=== PATIENT | male | born 1980 | race Caucasian/White ===

== ENCOUNTER 2025-03-14 17:47 | Inpatient (IN) | payer OTHER, SELFPAY ==
[2025-03-14] VITALS (16 sets, daily range): BP systolic 102–188; BP diastolic 53–90; PULSE 67–117; RESP 10–20; TEMP 36.8; O2SAT 95–100; BMI 33.0
--- NOTE | ~2025-03-14 | XR_ITS ---
Portable chest x-ray Comparison: None Clinical History: Cough Findings: Lungs are clear, without focal consolidation or pleural effusion. Cardiomediastinal silho uette is unremarkable. Bones and soft tissues are unremarkable. Impression: Clear lungs. Reviewed, dictated and finalized at location M. Impression: Clear lungs.
--- NOTE | ~2025-03-14 | CT_ITS ---
EXAMINATION: CT thoracic lumbar wo con DATE: 03/18/2025 09:22 INDICATION: Fall TECHNIQUE: Computed tomography (CT) of the thoracic and lumbar spine was performed without intravenou s contrast. Automated exposure control and iterative reconstruction technique were employed. The dose -length product was 2153.12 mGy-cm. COMPARISON: None FINDINGS: Minimal upper thoracic levocurvature and mid to lower thoracic dextrocurvature. 10 degrees lumbar lev ocurvature. Sagittal alignment is normal throughout the thoracic and lumbar spine. Chronic appearing minimal likely physiologic anterior wedging at T12 and L1. Remaining thoracic and lumbar vertebral frieda dy heights are normal. No acute fracture. There is mild disc height loss at T4-T5 through T9-T10. No central canal stenosis in the thoracic spine. There is mild multilevel thoracic facet osteoarthritis. No significant thoracic neural foraminal stenosis. There are disc bulges resulting in mild central c anal stenosis at L2-L3 through L5-S1. There is also mild multilevel lumbar facet osteoarthritis which along with the disc bulges contributes to minimal to mild neural foraminal stenosis also at L2-L3 th rough L5-S1. Moderate bilateral sacroiliac osteoarthritis. 2.5 cm low-attenuation left adrenal adenom a. Paravertebral soft tissues are otherwise unremarkable. There prominent patchy consolidation and ce ntrilobular groundglass opacities in the bilateral lower lobes suspicious for aspiration and/or pneum onia. IMPRESSION: 1. Mild thoracic and lumbar spondylosis with minimal physiologic anterior wedging at T12 and L1 but n o acute osseous abnormality. 2. Prominent airspace opacity bilateral lower lobes consistent with aspiration and/or pneumonia. Reviewed, dictated and finalized at location A. IMPRESSION: 1. Mild thoracic and lumbar spondylosis with minimal physiologic anterior wedgi ng at T12 and L1 but no acute osseous abnormality. 2. Prominent airspace opacity bilateral lower lobes consistent with aspiration and/or pneumonia.
--- NOTE | ~2025-03-14 | XR_ITS ---
EXAMINATION: XR surgery orthopedic DATE: 03/16/2025 13:00 CDT INDICATION: ORIF LEFT ANKLE . TECHNIQUE: 5 fluoroscopic images of the left ankle were obtained during left ankle ORIF. Fluoroscopy exposure time was 14.6 seconds. Air Kerma 0.5844 mGy. DAP 0.1158 mGym2. COMPARISON: Multiple x-rays 03/14/2025 FINDINGS/IMPRESSION: Fluoroscopic documentation of left ankle ORIF. Please refer to the operative note for complete proced ural details. Reviewed, dictated and finalized at location K.
--- NOTE | ~2025-03-14 | XR_ITS ---
EXAM: XR ankle LT 2V DATE: 03/14/2025 21:57 HISTORY: post reduction . COMPARISON: Same date at 6:39 PM. FINDINGS/IMPRESSION: Status post reduction and cast application. Cast material obscures osseous osseous detail. Improved alignment of the tibiotalar dislocation, with residual lateral subluxation of the talus. Imp roved alignment of the trimalleolar fractures with 5 mm persistent lateral displacement of the medial malleolus and persistent 5 mm lateral and 6 mm posterior displacement of the lateral malleolus. Reviewed, dictated and finalized at location K.
--- NOTE | ~2025-03-14 | XR_ITS ---
EXAM: XR ankle LT min 3V, XR tibia fibula LT 2V DATE: 03/14/2025 18:46 HISTORY: traumatic injury with deformity . COMPARISON: None available. FINDINGS: Normal mineralization. Oblique distal left fibular fracture at the level of the joint line , with one half shaft width lateral displacement and slight overlap. Transverse fracture of the media l malleolus, with 12 mm lateral displacement. The talus is laterally displaced relative to the tibial plafond. Small posterior malleolar fracture. No lytic or blastic lesion. Joint spaces are maintained . No erosion or periosteal change. Soft tissues within normal limits. IMPRESSION: Trimalleolar fracture/dislocation of the left ankle. Reviewed, dictated and finalized at location K. IMPRESSION: Trimalleolar fracture/dislocation of the left ankle.
--- NOTE | ~2025-03-14 | CT_ITS ---
EXAMINATION: CT cervical spine wo con DATE: 03/18/2025 09:21 INDICATION: Fall TECHNIQUE: Computed tomography (CT) of the cervical spine was performed without intravenous contrast. Automated exposure control and iterative reconstruction technique were employed. The dose-length pro duct was 558.50 mGy-cm. COMPARISON: None FINDINGS: Straightening of the normal cervical lordosis. 7 degrees cervical dextrocurvature which could be posi tional. No spondylolisthesis or facet subluxation. Vertebral body heights are normal. No fracture. Di sc heights are normal. No central canal stenosis. Mild multilevel bilateral cervical facet and uncove rtebral osteoarthritis without neural foraminal stenosis. Cervical soft tissues are unremarkable. Vis ualized apices of lungs are clear. IMPRESSION: 1. 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 No acute osseous abnormality. Reviewed, dictated and finalized at location A. IMPRESSION: 1. 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 No acute os seous abnormality.
--- NOTE | 2025-03-14 19:26 | PC.NURSE ---
Report received from ANN Reyes. Assumed care of patient at this time.
--- OUTSIDE RECORDS SUMMARY | 2025-03-14 20:31 | XMS_ITS | Clinical Summary ---
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 Name Role Phone Unavailable Primary Care Provider Unavailabl e Social History Tobacco Use Types Packs/Day Years Used Date Smoking Tobacco: Never Assessed Sex and Gender Information Value Date Recorded Sex Assigned at Not on file Legal Sex Male 8:10 PM CDT Gender Identity Not on file Sexual Orientation Not on file Last Filed Vital Signs Vital Sign Reading Time Taken Comments Blood Pressure 118/70 06/16/2016 11:47 AM CDT Pulse 88 06/16/2016 11:47 AM CDT Temperature - - Respiratory Rate - - Oxygen Saturation - - Inhaled Oxygen Concentration - - Weight 92.8 kg (204 lb 8 oz) 06/16/2016 11:47 AM CDT Height 176.5 cm (5' 9.5) 06/16/2016 11:47 AM CD T Body Mass Index 29.77 06/16/2016 11:47 AM CDT Plan of Treatment Health Maintenance Due Date Last Done Comments Annual Physical 1983 Hepatitis C 1998 DTaP, Tdap and Td Vaccines ( 1 - Tdap) 1999 Hepatitis B Vaccines (1 of 3 - 19+ 3-dose series) 1999 COVID-19 Vaccine (2023-2 5 season) 2024 HPV Vaccines Aged Out No longer eligi ble based on patient's age to complete this topic Meningococcal B Vaccine Aged Out No l onger eligible based on patient's age to complete this topic Meningococcal Vaccine Aged Out No isak lambert eligible based on patient's age to complete this topic Pneumococcal Vaccine: Pediat rics (0 to 5 Years) and At-Risk Patients (6 to 49 Years) Aged Out No longer eligible b ased on patient's age to complete this topic RSV Immunizations Under 20 Months Aged Out No longer eligible based on patient's age to complete this topic
[2025-03-14 20:47] LABS: Hematocrit 41.0 % (42.0-52.0); Hemoglobin 14.9 g/dL (14.0-18.0); Immature Granulocyte Percent A 0.7 % (0-0.5); Lymphocytes Absolute Auto 1.61 K/mm3 (0.9-3.2); Mean Corpuscular HGB Conc 36.3 g/dl (32-36); Mean Corpuscular Hemoglobin 30.3 pg (26-34); Mean Corpuscular Volume 83.3 fl (80-100); Nucleated Red Blood Cells Absolute Auto 0.000 K/mm3 (0.0-0.012); Nucleated Red Blood Cells Perc 0.0 % (0.0-0.2); Platelet Count Result 354 k/mm3 (150-375); Red Blood Count 4.92 M/mm3 (4.6-6.20); White Blood Count 15.6 K/mm3 (4.5-10.0)
[2025-03-14 20:59] LABS: Alanine Aminotransferase 44 U/L (6-50); Albumin Level 4.8 g/dL (3.5-5.1); Alkaline Phosphatase 92 U/L (38-126); Anion Gap 12 mmol/L (4-12); Aspartate Amino Transferase 43 U/L (17-59); Bilirubin,Total 0.6 mg/dL (0.2-1.3); Blood Urea Nitrogen 6 mg/dL (9-20); Calcium 9.3 mg/dL (8.4-10.2); Carbon Dioxide 23 mmol/L (22-30); Chloride 89 mmol/L (98-107); Estimated CRCL calculation 183 ml/min; Estimated Glomerular Filt Rate > 60; Glucose 125 mg/dL (65-110); Potassium 4.2 mmol/L (3.4-5.0); Sodium 124 mmol/L (137-145); Total Protein 6.8 g/dL (6.3-8.2)
[2025-03-14 21:07] LABS: INR 0.9; Prothrombin Time 12.7 Seconds (11.1-14.7)
[2025-03-14 21:08] LABS: Partial Thromboplastin Time 26.0 Seconds (22.3-36.8)
[2025-03-14] MEDS: fentaNYL CITRATE INJ (*CRX) 100 MCG/2 ML VIAL IV PUSH (21:31)
[2025-03-14] MEDS: MIDAZOLAM HCL (*CRX) 2 MG/2 ML VIAL IV PUSH (21:33)
[2025-03-14] MEDS: fentaNYL CITRATE INJ (*CRX) 100 MCG/2 ML VIAL (21:45)
[2025-03-14 22:17] LABS: Anion Gap 12 mmol/L (4-12); Blood Urea Nitrogen 6 mg/dL (9-20); Calcium 9.3 mg/dL (8.4-10.2); Carbon Dioxide 23 mmol/L (22-30); Chloride 89 mmol/L (98-107); Estimated CRCL calculation 168 ml/min; Estimated Glomerular Filt Rate > 60; Glucose 143 mg/dL (65-110); Potassium 4.5 mmol/L (3.4-5.0); Sodium 124 mmol/L (137-145)
[2025-03-14] MEDS: SODIUM CHLORIDE 0.9% IV 1,000 ML 143 ML IV CONT (22:19)
--- NOTE | 2025-03-14 22:49 | ED_ITS ---
HPI - Extremity Injury (Lower) General Chief Complaint: Extremity Injury, Lower Stated Complaint: LLE injury Time Seen by Provider: 03/14/25 20:14 History of Present Illness HPI Narrative: 44-year-old male with no pertinent past medical history presenting to the emergency department with left ankle pain and deformity. Patient states he was drinking at a house green party throughout the day and slipped on a wet spot in the kitchen and fell backwards twisting his ankle. Did not hit his head or lose consciousness. He is clinically sober on arrival. Patient sources drinking beer throughout the day but states that he drinks regularly and not more than usual. Nontoxic in arrival but does have an obvious deformity to his left ankle with skin tenting and purple discoloration on the medial aspect. He is able to wiggle the toes and has good dorsalis pedis pulse, distal cap refill is good. No history of ankle fractures or orthopedic surgeries on that leg before. No other skin involvement or lacerations. No loss of consciousness, headache, vision changes, chest pain, shortness a breath, abdominal pain, back pain, fever, chills. Last oral intake during initial encounter was about 4 hours ago. Related Data Allergies Allergy/AdvReac Type Severity Reaction Status Date / Time amoxicillin Allergy Mild Unknown Verified 03/14/25 17:50 shellfish derived Allergy Mild Vomiting Verified 03/14/25 17:50 Review of Systems 2 Review of Systems: As reviewed above in HPI Exam 2 Narrative: GENERAL: [Well-appearing, well-nourished, and in no acute distress.] HEAD: [Normocephalic, atraumatic.] EYES: [PERRLA and EOMI.] ENT: Nares clear, no rhinorrhea or epistaxis. Mucous membranes moist. NECK: Supple. CHEST: [Clear to auscultation. No respiratory distress.] HEART: [Regular rate and rhythm]. No murmur heard. [Normal peripheral pulses.] ABDOMEN: [Soft, nondistended], [nontender], [No rigidity or guarding] EXTREMITIES: Left ankle deformity with skin tenting on the medial malleolus with posterior appearing displacement of the ankle. No skin breakdown, medial malleolar area with ecchymosis. Cap refill distally intact, able to wiggle the toes. Good dorsalis pedis pulse and posterior tibialis pulse. Able to plantar and dorsiflex at the ankle with good strength but does elicit pain. No other appreciable injuries to the other extremities. SKIN: Warm, dry, no rash. NEURO: [No focal deficits]. Alert and oriented [x3.] PSYCH: [Normal mood and affect.] Course Vital Signs Vital signs: Vital Signs Temperature 36.8 C 03/14/25 17:44 Pulse Rate 88 03/14/25 17:44 Respiratory Rate 14 03/14/25 17:44 Pulse Oximetry 99 03/14/25 17:44 Oxygen Delivery Room Air 03/14/25 17:44 Temperature 36.8 C 03/14/25 17:44 Pulse Rate 90 03/14/25 22:06 Respiratory Rate 15 03/14/25 22:06 Blood Pressure 102/53 L 03/14/25 22:06 Pulse Oximetry 98 03/14/25 22:06 Oxygen Delivery Room Air 03/14/25 17:44 Procedures Orthopedic Fracture Reduction Fracture #1: Fracture Reduction date: 03/14/25 Fracture Reduction time: 21:30 Time Out Performed: Yes Side: left Fracture Reduction Location: tibia and fibula Analgesia: other (Intravenous fentanyl and Versed for anxiolysis and pain control) Pre-Procedure Neuro Vascular Exam: normal Technique: direct manipulation and traction/counter-traction Post Reduction X-rays Demonstrate: acceptable reduction Post-reduction neuro exam: intact Post-reduction vascular exam: intact Splint Applied: Yes Patient Tolerated Procedure: well and no complications Orthopedic Splinting/Casting Injury #1: Splinting/Casting Date: 03/14/25 Splinting/Casting Time: 21:45 Side: left Lower Extremity Injury Location: ankle Lower Extremity Immobilizer: posterior splint and stirrup splint Splint: customized in ED Pre-Procedure Neuro Vascular Exam: normal Post-Procedure Neuro Vascular Exam: normal Other Orthopedic Equipment: crutches MDM - Extremity Injury (Lower) MDM Narrative Medical decision making narrative: 44-year-old male with no pertinent past medical history presenting to the emergency department with left ankle pain and deformity. Patient states he was drinking at a house green party throughout the day and slipped on a wet spot in the kitchen and fell backwards twisting his ankle. Did not hit his head or lose consciousness. He is clinically sober on arrival. Patient sources drinking beer throughout the day but states that he drinks regularly and not more than usual. Nontoxic in arrival but does have an obvious deformity to his left ankle with skin tenting and purple discoloration on the medial aspect. He is able to wiggle the toes and has good dorsalis pedis pulse, distal cap refill is good. No history of ankle fractures or orthopedic surgeries on that leg before. No other skin involvement or lacerations. No loss of consciousness, headache, vision changes, chest pain, shortness a breath, abdominal pain, back pain, fever, chills. Last oral intake during initial encounter was about 4 hours ago. Left ankle deformity with skin tenting on the medial malleolus with posterior appearing displacement of the ankle. No skin breakdown, medial malleolar area with ecchymosis. Cap refill distally intact, able to wiggle the toes. Good dorsalis pedis pulse and posterior tibialis pulse. Able to plantar and dorsiflex at the ankle with good strength but does elicit pain. No other appreciable injuries to the other extremities. X-rays were obtained which revealed a displaced trimalleolar fracture consistent with physical exam findings. He is neurovascular intact with soft compartments. Hemodynamically stable. He was given fentanyl and Versed for pain control and anxiety lytes as wall bedside reduction attempted. Several times were given he did have successful partial reduction of the left ankle with reduction of the skin tenting region and better approximation the bones on repeat x-ray. He was splinted in a posterior short-leg and stirrup splint for ankle stability. Patient's pain is under control at this time. Discussed the case with the orthopedic surgeon on-call Dr. Lara and our plan for admission to the hospital for consultation and evaluation. Patient does have numerous electrolyte deficiencies including low sodium and chloride which could be from alcohol use today, dehydration, from chronic alcohol intake. He does have a small white count but no signs of infection. Patient pain is under control at this time and he was made NPO. Admission to the hospitalist service under Dr. Terrell at this time with orthopedics on consult. He was given pain control medications p.r.n. orders and discussed with the patient and family the plan and they were comfortable with admission at this time. Medical Records Attestation: I reviewed the patient's medical records. Lab Data Attestation: I reviewed the patient's lab results. 03/14/25 20:37 03/14/25 22:03 Labs: Lab Results 03/14/25 03/14/25 Range/Units 20:37 22:03 WBC 15.6 H (4.5-10.0) K/mm3 RBC 4.92 (4.6-6.20) M/mm3 Hgb 14.9 (14.0-18.0) g/dL Hct 41.0 L (42.0-52.0) % MCV 83.3 (80-100) fl MCH 30.3 (26-34) pg MCHC 36.3 H (32-36) g/dl RDW 11.5 (11.5-14.5) % Plt Count 354 (150-375) k/mm3 MPV 8.1 (7.4-10.4) fl Immature Gran % (Auto) 0.7 H (0-0.5) % Neut % (Auto) 81.0 H (45.5-73.1) % Lymph % (Auto) 10.3 L (18.3-44.2) % [place] % (Auto) 6.9 (2.6-8.5) % Eos % (Auto) 0.6 (0-4.4) % Baso % (Auto) 0.5 (0.2-1.2) % Lymph # (Auto) 1.61 (0.9-3.2) K/mm3 [place] # (Auto) 1.1 H (0.1-0.6) K/mm3 Eos # (Auto) 0.1 (0-0.3) K/mm3 Baso # (Auto) 0.1 (0.0-0.1) K/mm3 Abs Immat Gran (auto) 0.11 H (0.00-0.031) K/mm3 Absolute Neuts (auto) 12.6 H (1.3-6.7) K/mm3 Absolute Nucleated RBC 0.000 (0.0-0.012) K/mm3 Nucleated RBC % 0.0 (0.0-0.2) % PT 12.7 (11.1-14.7) Seconds INR 0.9 APTT 26.0 (22.3-36.8) Seconds Sodium 124 L 124 L (137-145) mmol/L Potassium 4.2 4.5 (3.4-5.0) mmol/L Chloride 89 L 89 L (98-107) mmol/L Carbon Dioxide 23 23 (22-30) mmol/L Anion Gap 12 12 (4-12) mmol/L BUN 6 L 6 L (9-20) mg/dL Creatinine 0.51 L 0.56 L (0.7-1.3) mg/dL Estim Creat Clear Calc 183 168 ml/min Estimated GFR > 60 > 60 (59 - ) Glucose 125 H 143 H (65-110) mg/dL Calcium 9.3 9.3 (8.4-10.2) mg/dL Total Bilirubin 0.6 (0.2-1.3) mg/dL AST 43 (17-59) U/L ALT 44 (6-50) U/L Alkaline Phosphatase 92 (38-126) U/L Total Protein 6.8 (6.3-8.2) g/dL Albumin 4.8 (3.5-5.1) g/dL Blood Type Pending Antibody Screen Pending Imaging Data Attestation: I personally reviewed and interpreted this imaging study as follows: My impression: Status post reduction and cast application. Cast material obscures osseous osseous detail. Improved alignment of the tibiotalar dislocation, with residual lateral subluxation of the talus. Improved alignment of the trimalleolar fractures with 5 mm persistent lateral displacement of the medial malleolus and persistent 5 mm lateral and 6 mm posterior displacement of the lateral malleolus. Impressions Ankle X-Ray 03/14/25 18:52 IMPRESSION: Trimalleolar fracture/dislocation of the left ankle. Tibia/Fibula X-Ray 03/14/25 18:52 IMPRESSION: Trimalleolar fracture/dislocation of the left ankle. Discharge Plan Discharge Clinical Impression: Trimalleolar fracture of left ankle, Reduced trimalleolar fracture, Hyponatremia Patient Disposition: Still a Patient Condition: Stable Patient Language: Azerbaijani Follow-up/Referrals: PHYSICIAN NOT ON STAFF,NONSTAFF [Primary Care Provider] - Time of Disposition: 22:59
--- NOTE | 2025-03-14 23:01 | PC.NURSE ---
VORB to give patient 1L NS bolus.
[2025-03-14] MEDS: SODIUM CHLORIDE 0.9% IV 1,000 ML 999 ML IV CONT (23:07)
[2025-03-14] MEDS: HYDROcodone/acetaminophen (*CRX) 5-325 MG TABLET 1 TAB PO (23:53)
[2025-03-15] VITALS (7 sets, daily range): BP systolic 147–156; BP diastolic 65–77; PULSE 81–93; RESP 16–18; TEMP 36.4–36.9; O2SAT 99–100
--- NOTE | 2025-03-15 00:05 | PC.NURSE ---
Blood bank called to state that the T&S not resulting properly and they would need 4 pink top tubes sent down if needed. Spoke with Dr Terrell who states we can send this with next BMP draw at 0200.
--- NOTE | 2025-03-15 00:07 | P.HP_ITS ---
H&P: HPI History of Present Illness Date/Time: 03/15/25 00:07 Chief Complaint: Broke his leg after running through the kitchen in slipping on a wet spot while intoxicated Narrative: 44-year-old male with medical history of alcoholism, tobacco use, obesity, GERD, type 1 diabetes mellitus, essential hypertension and GERD who presented to the ER from family member's house where he is visiting after slipping and falling resulting in left ankle fracture. The patient reports that he is from around the [facility] and is here visiting family. They were having a pool republican and he ran inside to use the restroom. He slipped on a wet spot on the floor and fell. He had immediate deformity of the left ankle and foot which he in part reduced himself. He reports that initially he did not feel much pain due to being in shock. After his ankle was reduced in the ER his pain was more severe. He reports some mild improvement in the pain after fentanyl but definite improvement in pain after Dilaudid. He does admit that he has drink about 12 beers today. He reports he usually drinks between 12-18 beers every day and has done so for at least 10 years. He has had prior episodes of alcohol withdrawal which usually involves irritability, anxiousness and shakes. He has never had alcohol withdrawal seizures. He reports that he has also had issues with withdrawal with nicotine causing irritability but he does not want a nicotine patch at this time He denies any other symptoms of illness. He is type 1 diabetic since he was 20 once old. His last A1c was 6.2 in October. He reports that his fasting glucose this morning was 145 any as a continuous glucose monitor in place. He did not receive his evening Lantus. He usually takes 54 units of Lantus twice daily. He reports that if he is fasting he does not tend to take his Lantus dose. It is nice any lightheadedness or syncopal symptoms. He has not had any dizziness. He does is think that he snores but denies any daytime fatigue or sleepiness. He has never been tested for sleep apnea. He denies any significant cardiac history. He denies any current nausea or vomiting. He denies any known history of hepatic steatosis or cirrhosis. Labs in the ER were significant for mild hyponatremia with sodium 124 serum bicarb of 19 glucose of 125 and 1+ protein and urine and 1+ ketones. His insulin to carb ratio is 1 unit of insulin for every 3 carbohydrate. He usually gives himself 1 unit of insulin for every 10 points of glucose above 180 Review of Systems 2 Review of Systems: 12 systems were reviewed with pertinent positives and negatives per HPI. Except as documented in the HPI, all other systems were reviewed and are negative. [facility] Past Medical History Medical History (Updated 03/15/25 @ 04:19 by Fidelia Terrell DO) Macroalbuminuric diabetic nephropathy On lisinopril Continuous tobacco abuse Diabetic retinopathy Type 1 diabetes mellitus Since [id number] Allergic rhinitis Hyperlipidemia Essential hypertension GERD (gastroesophageal reflux disease) Surgical History Surgical History (Updated 03/15/25 @ 04:00 by Fidelia Terrell DO) Status post open reduction with internal fixation of fracture Right thumb repair History of umbilical hernia repair X2 Family History Family History (Updated 03/15/25 @ 04:00 by Fidelia Terrell DO) Other Lung cancer Other Brain cancer Other Mouth cancer Mother Healthy adult Father Healthy adult Social History Social History (Updated 03/15/25 @ 04:02 by Fidelia Terrell DO) Social History: Patient is single and does not have any children. 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 He has smoked between 15-20 cigarettes a day since his early 20s. He drinks between 12-18 beers a day and has drink heavily for at least 10 years. He denies illicit substance use. Code status: Full code Surrogate decision maker: Tu (brother) Smoking packs per day: 0.75 Smoking cigarettes per day: 15.0 Years smoked: 20 Smoking pack-years: 15.00 Smoking status: Current every day smoker Tobacco type: cigarettes and e-cigarettes/vaping Alcohol intake: current Drinks per week: 105 Substance use: never Substance use type: does not use Do You Feel Safe in your Home?: Yes Lack of Transportation: No Lack of Food: Never True Current Housing: I Have Housing Concerned About Future Housing: No Difficulty Paying Gas/Electric Bills: No Difficulty Paying for Meds: No Currently Unemployed: No Education: Master's Degree or Higher Difficulty w/ Childcare or Family Care: No Spiritual care concerns: No Meds Home Medications and Allergies Home Medications ?Medication ?Instructions ?Recorded ?Confirmed ?Type aspirin 81 mg tablet,delayed 81 mg PO DAILY 03/14/25 03/14/25 History release (Adult Aspirin Regimen) fluticasone propionate 50 2 spray intranasal DAILY 03/14/25 03/14/25 History mcg/actuation nasal spray,suspension levocetirizine 5 mg tablet (24HR 5 mg PO DAILY 03/14/25 03/14/25 History Allergy Relief) lisinopril 20 mg tablet 20 mg PO DAILY 03/14/25 03/14/25 History omeprazole 20 mg capsule,delayed 20 mg PO DAILY 03/14/25 03/14/25 History release pioglitazone 15 mg tablet 15 mg PO DAILY 03/14/25 03/15/25 History simvastatin 80 mg tablet 80 mg PO DAILY 03/14/25 03/14/25 History famotidine 40 mg tablet 40 mg PO HS 03/15/25 03/15/25 History insulin glargine 100 unit/mL 54 unit subcut BID 03/15/25 03/15/25 History subcutaneous solution (Lantus U-100 Insulin) insulin lispro 100 unit/mL 1 sliding scale dose subcut 03/15/25 03/15/25 History subcutaneous cartridge [id number] Allergies Allergy/AdvReac Type Severity Reaction Status Date / Time amoxicillin Allergy Mild Unknown Verified 03/14/25 23:46 shellfish derived Allergy Mild Vomiting Verified 03/14/25 23:46 Vital Signs Vital Signs - 24 hr 03/14/25 17:44 03/14/25 17:45 03/14/25 18:57 Temperature 98.2 F Pulse Rate 88 87 84 Respiratory Rate 14 18 18 Blood Pressure 147/73 H 149/74 H Pulse Oximetry 99 99 99 Oxygen Delivery Room Air 03/14/25 20:42 03/14/25 21:01 03/14/25 21:31 Temperature Pulse Rate 96 90 82 Respiratory Rate 19 11 L 13 Blood Pressure 134/72 146/78 H Pulse Oximetry 96 97 100 Oxygen Delivery 03/14/25 21:32 03/14/25 21:45 03/14/25 21:48 Temperature Pulse Rate 87 117 H 106 H Respiratory Rate 12 12 20 Blood Pressure 188/90 H Pulse Oximetry 100 98 Oxygen Delivery 03/14/25 22:00 03/14/25 22:06 03/14/25 22:44 Temperature Pulse Rate 92 90 67 Respiratory Rate 10 L 15 20 Blood Pressure 102/53 L Pulse Oximetry 98 100 Oxygen Delivery 03/14/25 22:45 03/14/25 22:49 03/14/25 22:54 Temperature Pulse Rate 67 68 68 Respiratory Rate 14 19 14 Blood Pressure 103/70 108/61 Pulse Oximetry 99 100 99 Oxygen Delivery 03/14/25 23:23 Temperature Pulse Rate 76 Respiratory Rate 18 Blood Pressure Pulse Oximetry 95 Oxygen Delivery Exam 2 Narrative: Weight 103.1 kg BMI 33.6 Const: Other: Obese, no acute distress, appears stated age HENMT: Other: Mucous membranes are moist, no oral pharyngeal erythema, crowded posterior oropharynx Eyes: Other: Pupils are equal and reactive, no scleral icterus, no conjunctival pallor Neck: Other: Large neck circumference, no JVD, no thyromegaly Resp: Other: Clear to auscultation bilaterally, no increased work of breathing Cardio: Other: Regular rate, regular rhythm, 2+ bilateral radial pulses, 2+ right pedal pulse, unable to assess left pedal pulse due to cast, no murmurs GI: Other: Obese, soft, nontender, normoactive bowel sounds Skin: Other: Kunal facial complexion, no petechiae Neuro: Other: Alert oriented, speech is clear, no facial asymmetry, no localizing neurologic deficits noted during the course of conversation Extrem: Other: Left lower extremity is in a splint distal extremity is neurovascularly intact with 2-3 second cap refill Psych: Other: Appropriate mood and affect, pleasant and cooperative, judgment and insight intact H&P: Results Labs Labs: Laboratory Tests 03/14/25 20:37 03/14/25 22:03 03/14/25 03/14/25 03/14/25 20:37 22:03 23:47 WBC 15.6 H RBC 4.92 Hgb 14.9 Hct 41.0 L MCV 83.3 MCH 30.3 MCHC 36.3 H RDW 11.5 Plt Count 354 MPV 8.1 Immature Gran % (Auto) 0.7 H Neut % (Auto) 81.0 H Lymph % (Auto) 10.3 L [place] % (Auto) 6.9 Eos % (Auto) 0.6 Baso % (Auto) 0.5 Lymph # (Auto) 1.61 [place] # (Auto) 1.1 H Eos # (Auto) 0.1 Baso # (Auto) 0.1 Abs Immat Gran (auto) 0.11 H Absolute Neuts (auto) 12.6 H Absolute Nucleated RBC 0.000 Nucleated RBC % 0.0 PT 12.7 INR 0.9 APTT 26.0 Sodium 124 L 124 L Potassium 4.2 4.5 Chloride 89 L 89 L Carbon Dioxide 23 23 Anion Gap 12 12 BUN 6 L 6 L Creatinine 0.51 L 0.56 L Estim Creat Clear Calc 183 168 Estimated GFR > 60 > 60 Glucose 125 H 143 H POC Capillary Glucose 169 H Calcium 9.3 9.3 Total Bilirubin 0.6 AST 43 ALT 44 Alkaline Phosphatase 92 Total Protein 6.8 Albumin 4.8 Blood Type Pending Antibody Screen Pending Impressions Ankle X-Ray 03/14/25 18:52 IMPRESSION: Trimalleolar fracture/dislocation of the left ankle. Tibia/Fibula X-Ray 03/14/25 18:52 IMPRESSION: Trimalleolar fracture/dislocation of the left ankle. Assessment and Plan Assessment and plan (1) Trimalleolar fracture of left ankle: Qualifiers: Encounter type: initial encounter Fracture type: closed Qualified Code(s): S82.852A - Displaced trimalleolar fracture of left lower leg, initial encounter for closed fracture Code(s): S82.852A - Displaced trimalleolar fracture of left lower leg, initial encounter for closed fracture Status: Acute (2) Alcohol intoxication: Qualifiers: Complication of substance-induced condition: uncomplicated Qualified Code(s): F10.920 - Alcohol use, unspecified with intoxication, uncomplicated Code(s): F10.929 - Alcohol use, unspecified with intoxication, unspecified Status: Acute (3) Hyponatremia: Code(s): E87.1 - Hypo-osmolality and hyponatremia Status: Acute (4) Type 1 diabetes mellitus: Qualifiers: Diabetes mellitus complication status: with kidney complications D iabetes mellitus complication detail: with diabetic microalbuminuria Qualified Code(s): E10.29 - Type 1 diabetes mellitus with other diabetic kidney complication; R80.9 - Proteinuria, unspecified Code(s): E10.9 - Type 1 diabetes mellitus without complications Status: Acute (5) Continuous tobacco abuse: Code(s): Z72.0 - Tobacco use Status: Acute Plan Patient has had a trimalleolar fracture of the left ankle. Orthopedic surgery has been consulted. Patient is NPO in anticipation of possible surgical procedure. Will keep extremity elevated. Will provide ice pack. Patient is actively intoxicated and has history of heavy alcohol use/dependence for 10+ years. He has had history of prior episodes of alcohol withdrawal but no history of alcohol withdrawal seizures. Will place patient on thiamine, multivitamin and folic acid supplements. Will place orders for p.r.n. Ativan for symptoms of withdrawal. Patient does have some hyponatremia I would not be surprised if this is not somewhat chronic given the patient's history of chronic alcohol use. Although there may be some component of acute hyponatremia given acute fracture in pain. Repeat electrolyte panel [place] later demonstrate stable sodium. Will monitor. The patient does have type 1 diabetes mellitus that is historically well- controlled but has a understandable complications of diabetic micro albuminemia nephropathy diabetic retinopathy and given longevity of his diagnosis. Patient is only mildly hyperglycemic. Patient is NPO. He states he would usually fold his Lantus if he was NPO and prefers not take his Lantus this evening. Patient has been started on moderate dose sliding scale insulin with Accu-Cheks q.6 hours while NPO. Hypoglycemia protocol has also been ordered. Once patient is postop he could be resumed back his home insulin regimen he carb counting of 1 unit of insulin for every 3 carbohydrate and a correction factor of 1 unit of insulin for every 10 mg a of glucose above 180. Patient does not want a nicotine patch currently but would be interested in 1 if symptoms of withdrawal developed. Nicotine patch has been ordered p.r.n.. He is not interested in tobacco cessation Education at this time. Patient has been admitted as observation status. MEDICAL DECISION MAKING NARRATIVE -Spoke with the ED provider in detail regarding patient's evaluation, workup and management -Patient seen and examined at bedside -Collaborated with patient's nurse at the bedside in detail and addressed all concerns -Labs, electrolytes, radiology, investigations and test results reviewed -ED/Consult/Nursing/Ancilliary notes on the chart reviewed and appreciated -Spoke with patient at bedside and all questions answered. Quality VTE Prophylaxis VTE prophylaxis: pharmacologic ordered (Lovenox 40 mg subQ daily.) Hospitalist [facility] Advance Care Plan I have confirmed that the patient's Advanced Care Plan is present, code status is documented, or surrogate decision maker is listed in patient medical record.: Yes Medication Reconciliation I have utilized all available resources to obtain, update and review the patients current medications (includes all prescriptions, OTC, herbals, cannabis, and nutritional supplements).: Yes
--- NOTE | 2025-03-15 00:30 | PC.NURSE ---
Spoke with December on M/S regarding blood bank needing 4 pink tops with next lab draw to send out for T&S.
[2025-03-15] MEDS: HYDROmorphone HCL INJ (*CRX) 2 MG/ML VIAL 0.5 MG IV PUSH ×2 (01:15→06:28)
[2025-03-15 01:22] LABS: Add Urine Microscopic? YES; Appearance Urine Clear (Clear); Glucose Urine UA Trace mg/dL (Negative); Leukocyte Esterase Ur Negative LEU/UL (Negative); Nitrate Urine Negative (Negative); Non Pathogenic Casts 0-2; Specific Grav Ur 1.004 (1.001-1.035)
[2025-03-15 02:54] LABS: Anion Gap 13 mmol/L (4-12); Blood Urea Nitrogen 10 mg/dL (9-20); Calcium 8.8 mg/dL (8.4-10.2); Carbon Dioxide 19 mmol/L (22-30); Chloride 93 mmol/L (98-107); Estimated CRCL calculation 136 ml/min; Estimated Glomerular Filt Rate > 60; Glucose 183 mg/dL (65-110); Potassium 4.7 mmol/L (3.4-5.0); Sodium 125 mmol/L (137-145)
[2025-03-15 03:17] LABS: Thyroid Stimulating Hormone Reflex 2.680 uIU/mL (0.465-4.68)
[2025-03-15] MEDS: HYDROcodone/acetaminophen (*CRX) 5-325 MG TABLET 1 TAB PO ×4 (04:55→19:54)
[2025-03-15 05:58] LABS: Hematocrit 40.9 % (42.0-52.0); Hemoglobin 13.9 g/dL (14.0-18.0); Mean Corpuscular HGB Conc 34.0 g/dl (32-36); Mean Corpuscular Hemoglobin 29.9 pg (26-34); Mean Corpuscular Volume 88.0 fl (80-100); Platelet Count Result 338 k/mm3 (150-375); Red Blood Count 4.65 M/mm3 (4.6-6.20); White Blood Count 16.7 K/mm3 (4.5-10.0)
[2025-03-15 06:11] LABS: Anion Gap 11 mmol/L (4-12); Blood Urea Nitrogen 10 mg/dL (9-20); Calcium 8.8 mg/dL (8.4-10.2); Carbon Dioxide 23 mmol/L (22-30); Chloride 92 mmol/L (98-107); Estimated CRCL calculation 133 ml/min; Estimated Glomerular Filt Rate > 60; Glucose 215 mg/dL (65-110); Magnesium 2.1 mg/dL (1.6-2.3); Potassium 5.1 mmol/L (3.4-5.0); Sodium 126 mmol/L (137-145)
[2025-03-15] MEDS: INSULIN ASPART (*BKC) 100 UNITS/ML SUB-Q ×4 (06:29→21:29)
[2025-03-15] MEDS: MULTIVITAMINS THERAPEUTIC TAB (*BKC) 1 TABLET PO (09:25)
[2025-03-15] MEDS: FOLIC ACID 1 MG TABLET PO (09:26)
[2025-03-15] MEDS: LORATADINE 10 MG TABLET PO (09:26)
[2025-03-15] MEDS: PANTOPRAZOLE 40 MG TABLET PO (09:26)
[2025-03-15] MEDS: THIAMINE HCL 100 MG TABLET PO (09:26)
[2025-03-15] MEDS: SODIUM CHLORIDE 0.9% IV 1,000 ML 100 ML IV CONT ×2 (09:28→17:36)
[2025-03-15] MEDS: FLUTICASONE PROPIONATE 0.05% NA SPR 16 GM BTL (*BKC) 2 SPRAY NASAL (09:34)
[2025-03-15] MEDS: LORazepam INJ (*CRX) 2 MG/ML VIAL IV PUSH (09:37)
[2025-03-15] MEDS: INSULIN GLARGINE (*BKC) 100 UNITS/ML 40 UNITS SUB-Q ×2 (12:43→21:29)
[2025-03-15] MEDS: chlordiazePOXIDE (*CRX) 25 MG CAPSULE 50 MG PO ×3 (12:44→23:53)
--- NOTE | 2025-03-15 13:34 | PM.EVENT ---
Event Note Event Note Event Note: Patient is a 44-year-old male who was seen and assessed by previous provider same day follow-up evaluation and assessment is is hyponatremia slowly improved to 126 however received 2 L fluids in the emergency department benign initiated overnight so started patient on normal saline at 125ML/HR. patient reports he has everyday drinker ports easily stop drinking for 19 days 1 time but did not have any seizure-like activities but did report he some confusion some nausea and vomiting. patient had been at home reports [employer] for the 13 of March and drinking many and insight to his kitchen with the floor was slippery and wet from being in the pool and fell fracturing his left ankle which he attempted to reduce himself prior to arrival to the emergency department. Patient was reporting severe pain ER reduced and casted and consulted Orthopedics. Patient was admitted for electrolyte replacement and plans for surgery Sunday. Upon assessment patient mild diaphoresis no tremors noted but did report feeling anxious denied any chest pain, shortness a breath, nausea vomiting. I continued with aggressive IV hydration, thiamine, folic acid, multivitamin had been started. I also initiated patient on Librium 50 mg q.6 hours adding CIWA indications with p.r.n. Ativan. patient is a type 1 diabetic resumed his diabetic diet and insulin will need to monitor closely spoke with Ortho will place patient NPO at midnight with plans for surgery tomorrow 03/15/2025.
[2025-03-15] MEDS: diazePAM INJ (*CRX) 10 MG/2 ML SYRINGE 5 MG IV PUSH ×2 (14:04→21:36)
[2025-03-15 14:31] LABS: Anion Gap 13 mmol/L (4-12); Blood Urea Nitrogen 9 mg/dL (9-20); Calcium 9.1 mg/dL (8.4-10.2); Carbon Dioxide 21 mmol/L (22-30); Chloride 93 mmol/L (98-107); Estimated CRCL calculation 146 ml/min; Estimated Glomerular Filt Rate > 60; Glucose 224 mg/dL (65-110); Potassium 4.6 mmol/L (3.4-5.0); Sodium 127 mmol/L (137-145)
--- NOTE | 2025-03-15 15:34 | P.CONOP_ITS ---
Assessment and Plan Assessment and plan (1) Trimalleolar fracture of left ankle: Qualifiers: Encounter type: initial encounter Fracture type: closed Qualified Code(s): S82.852A - Displaced trimalleolar fracture of left lower leg, initial encounter for closed fracture Code(s): S82.852A - Displaced trimalleolar fracture of left lower leg, initial encounter for closed fracture Status: Acute Assessment and Plan: New patient evaluation for chief complaint Left ankle fracture status post fall. History, physical exam and radiographs reviewed with the patient. Discussed the condition, nature, etiology and course of natural history with the patient. Treatment options including surgical and nonoperative treatment were reviewed. Risks and benefits of each as well as alternatives reviewed. The patient's questions were answered. Conservative treatment ice, compression and elevation. Pain control, mechanical DVT prophylaxis for the right leg. Patient desires operative treatment. Discussed need for medical stabilization prior to proceeding with surgery. (2) Type 1 diabetes mellitus: Qualifiers: Diabetes mellitus complication status: with kidney complications D iabetes mellitus complication detail: with diabetic microalbuminuria Qualified Code(s): E10.29 - Type 1 diabetes mellitus with other diabetic kidney complication; R80.9 - Proteinuria, unspecified Code(s): E10.9 - Type 1 diabetes mellitus without complications Status: Acute Plan Discussed nonoperative and operative treatment options with the patient. Risks and benefits of each as well as alternatives were reviewed. All of the patient's questions were answered. The risks of surgery reviewed including but not limited to: Neurovascular damage, wound complication, infection, blood clot, pulmonary embolus, stroke, myocardial infarction, and anesthetic risks up to and including . Continued pain and possible dysfunction were explained. Specific risks of the procedure including later recurrence of deformity. No guarantees were offered. If hardware used, discussed risk of failure/ breakage and possible need for removal. If complications occur, the patient understands the need for further treatment, possible further surgery. Patient verbalizes understanding and wishes to proceed. PLAN: Open reduction internal fixation left ankle fracture. History of Present Illness HPI Consult date: 03/15/25 Requesting physician: Emory Espinoza MD Chief complaint: Trimalleolar fracture, Hyponatremia Narrative: 44-year-old with type 1 diabetes slipped on wet floor in kitchen yesterday sustaining left ankle fracture dislocation. Reduced in the emergency room and splinted. Admitted for further care. He had electrolyte abnormalities which they have been working on. No prior problems with the left ankle. Independent ambulator. No prior fractures. No head injury, neck or back injury at the time of fall. Denies history of blood clots or anesthetic problems. Review of Systems 2 Constitutional: Constitutional: Denies fever(s) Eyes: Eyes: Denies blurry vision ENT: Reports Normal hearing present Cardiovascular: Cardiovascular: Denies chest pain and Denies dyspnea Respiratory: Respiratory: Denies dyspnea and Denies wheezing Gastrointestinal: Gastrointestinal: Denies abdominal pain Genitourinary: Genitourinary: Denies urinary urgency Musculoskeletal: Musculoskeletal: Reports as per HPI and Denies numbness Integumentary/Breasts: Skin/Breast: Denies changing lesions and Denies sores Neurologic: Reports Normal hearing present, Denies behavioral changes, Denies confusion, Denies numbness and Denies convulsions Psychiatric: Psychiatric: Denies behavioral changes, Denies confusion and Denies hallucinations Endocrine: Endocrine: Denies heat intolerance Hematologic/Lymphatic: Hematologic/Lymphatic: Denies easy bleeding Allergic/Immunologic: Allergic/Immunologic: Denies wheezing PMFSH Past Medical History Medical History Macroalbuminuric diabetic nephropathy On lisinopril Continuous tobacco abuse Diabetic retinopathy Type 1 diabetes mellitus Since [id number] Allergic rhinitis Hyperlipidemia Essential hypertension GERD (gastroesophageal reflux disease) Surgical History Surgical History Status post open reduction with internal fixation of fracture Right thumb repair History of umbilical hernia repair X2 Family History Family History Other Lung cancer Other Brain cancer Other Mouth cancer Mother Healthy adult Father Healthy adult Social History Social History Social History: Patient is single and does not have any children. 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 He has smoked between 15-20 cigarettes a day since his early 20s. He drinks between 12-18 beers a day and has drink heavily for at least 10 years. He denies illicit substance use. Code status: Full code Surrogate decision maker: Tu (brother) Smoking packs per day: 0.75 Smoking cigarettes per day: 15.0 Years smoked: 20 Smoking pack-years: 15.00 Smoking status: Current every day smoker Tobacco type: cigarettes and e-cigarettes/vaping Alcohol intake: current Drinks per week: 105 Substance use: never Substance use type: does not use Do You Feel Safe in your Home?: Yes Lack of Transportation: No Lack of Food: Never True Current Housing: I Have Housing Concerned About Future Housing: No Difficulty Paying Gas/Electric Bills: No Difficulty Paying for Meds: No Currently Unemployed: No Education: Master's Degree or Higher Difficulty w/ Childcare or Family Care: No Spiritual care concerns: No Meds Home Medications and Allergies Home Medications ?Medication ?Instructions ?Recorded ?Confirmed ?Type aspirin 81 mg tablet,delayed 81 mg PO DAILY 03/14/25 03/14/25 History release (Adult Aspirin Regimen) fluticasone propionate 50 2 spray intranasal DAILY 03/14/25 03/14/25 History mcg/actuation nasal spray,suspension levocetirizine 5 mg tablet (24HR 5 mg PO DAILY 03/14/25 03/14/25 History Allergy Relief) lisinopril 20 mg tablet 20 mg PO DAILY 03/14/25 03/14/25 History omeprazole 20 mg capsule,delayed 20 mg PO DAILY 03/14/25 03/14/25 History release pioglitazone 15 mg tablet 15 mg PO DAILY 03/14/25 03/15/25 History simvastatin 80 mg tablet 80 mg PO DAILY 03/14/25 03/14/25 History famotidine 40 mg tablet 40 mg PO HS 03/15/25 03/15/25 History insulin glargine 100 unit/mL 54 unit subcut BID 03/15/25 03/15/25 History subcutaneous solution (Lantus U-100 Insulin) insulin lispro 100 unit/mL 1 sliding scale dose subcut 03/15/25 03/15/25 History subcutaneous cartridge [id number] Allergies Allergy/AdvReac Type Severity Reaction Status Date / Time amoxicillin Allergy Mild Unknown Verified 03/14/25 23:46 shellfish derived Allergy Mild Vomiting Verified 03/14/25 23:46 Vital Signs Vital Signs - 24 hr 03/14/25 17:44 03/14/25 17:45 03/14/25 18:57 Temperature 98.2 F Pulse Rate 88 87 84 Respiratory Rate 14 18 18 Blood Pressure 147/73 H 149/74 H Pulse Oximetry 99 99 99 Oxygen Delivery Room Air 03/14/25 20:42 03/14/25 21:01 03/14/25 21:31 Temperature Pulse Rate 96 90 82 Respiratory Rate 19 11 L 13 Blood Pressure 134/72 146/78 H Pulse Oximetry 96 97 100 Oxygen Delivery 03/14/25 21:32 03/14/25 21:45 03/14/25 21:48 Temperature Pulse Rate 87 117 H 106 H Respiratory Rate 12 12 20 Blood Pressure 188/90 H Pulse Oximetry 100 98 Oxygen Delivery 03/14/25 22:00 03/14/25 22:06 03/14/25 22:44 Temperature Pulse Rate 92 90 67 Respiratory Rate 10 L 15 20 Blood Pressure 102/53 L Pulse Oximetry 98 100 Oxygen Delivery 03/14/25 22:45 03/14/25 22:49 03/14/25 22:54 Temperature Pulse Rate 67 68 68 Respiratory Rate 14 19 14 Blood Pressure 103/70 108/61 Pulse Oximetry 99 100 99 Oxygen Delivery 03/14/25 23:23 03/15/25 00:00 03/15/25 02:35 Temperature 98.2 F Pulse Rate 76 87 87 Respiratory Rate 18 18 18 Blood Pressure 156/74 H Pulse Oximetry 95 99 99 Oxygen Delivery Room Air 03/15/25 03:52 03/15/25 04:00 03/15/25 06:00 Temperature 98 F Pulse Rate 81 Respiratory Rate 18 Blood Pressure 156/74 H 156/74 H 151/71 H Pulse Oximetry 99 Oxygen Delivery 03/15/25 08:00 Temperature Pulse Rate Respiratory Rate Blood Pressure Pulse Oximetry Oxygen Delivery Room Air Exam 2 Const: General: No confusion Orientation/consciousness: No confusion HENMT: Head: normal to inspection, normocephalic and atraumatic Neck: Neck: supple and nontender Chest: Chest palpation & inspection: normal inspection of the chest Resp: Effort & Inspection: normal respiratory effort and no audible wheezes Cardio: Rate: regular rate : General: Yes deferred Skin: General skin exam: no rashes or lesions noted Neuro: General: No confusion Extrem: General: capillary refill normal Right upper extremity: normal to inspection Left upper extremity: normal to inspection Right lower extremity: normal to inspection and hip/thigh Details: normal to inspection L eft lower extremity: hip/thigh Details: normal to inspection, knee Details: normal to inspection and knee ligament exam normal Details: anterior drawer test normal, valgus stress test normal, varus stress test normal and Jose C's test normal, ankle (no calf tenderness) Details: abnormal to inspection ( Obvious swelling at the ankle joint), tenderness ( lateral malleolus), swelling (moderate lateral ankle), abnormal ROM Details: pain with active ROM Details: with plantar flexion and with dorsiflexion and with range as follows ( limited secondary to injury), crepitus Details: at the lateral malleolus and other ( good capillary refill in toes, 2+ DP pulse) and foot Details: normal capillary refill, toes with normal ROM, vascular exam Details: dorsalis pedis pulse present and motor-sensory exam Psych: Affect: normal affect Results Labs 03/15/25 05:45 03/15/25 14:15 Labs: Abnormal lab results 03/14/25 03/14/25 03/14/25 Range/Units 20:37 22:03 23:47 WBC 15.6 H (4.5-10.0) K/mm3 Hgb (14.0-18.0) g/dL Hct 41.0 L (42.0-52.0) % MCHC 36.3 H (32-36) g/dl Immature Gran % (Auto) 0.7 H (0-0.5) % Neut % (Auto) 81.0 H (45.5-73.1) % Lymph % (Auto) 10.3 L (18.3-44.2) % [place] # (Auto) 1.1 H (0.1-0.6) K/mm3 Abs Immat Gran (auto) 0.11 H (0.00-0.031) K/mm3 Absolute Neuts (auto) 12.6 H (1.3-6.7) K/mm3 Sodium 124 L 124 L (137-145) mmol/L Potassium (3.4-5.0) mmol/L Chloride 89 L 89 L (98-107) mmol/L Carbon Dioxide (22-30) mmol/L Anion Gap (4-12) mmol/L BUN 6 L 6 L (9-20) mg/dL Creatinine 0.51 L 0.56 L (0.7-1.3) mg/dL Glucose 125 H 143 H (65-110) mg/dL POC Capillary Glucose 169 H (65-105) mg/dl Phosphorus (2.5-4.5) mg/dL Urine Protein (Negative) mg/dL Urine Glucose (UA) (Negative) mg/dL Urine Ketones (Negative) mg/dL 03/15/25 03/15/25 03/15/25 Range/Units 01:05 02:16 05:32 WBC (4.5-10.0) K/mm3 Hgb (14.0-18.0) g/dL Hct (42.0-52.0) % MCHC (32-36) g/dl Immature Gran % (Auto) (0-0.5) % Neut % (Auto) (45.5-73.1) % Lymph % (Auto) (18.3-44.2) % [place] # (Auto) (0.1-0.6) K/mm3 Abs Immat Gran (auto) (0.00-0.031) K/mm3 Absolute Neuts (auto) (1.3-6.7) K/mm3 Sodium 125 L (137-145) mmol/L Potassium (3.4-5.0) mmol/L Chloride 93 L (98-107) mmol/L Carbon Dioxide 19 L (22-30) mmol/L Anion Gap 13 H (4-12) mmol/L BUN (9-20) mg/dL Creatinine (0.7-1.3) mg/dL Glucose 183 H (65-110) mg/dL POC Capillary Glucose 220 H (65-105) mg/dl Phosphorus (2.5-4.5) mg/dL Urine Protein 1+ H (Negative) mg/dL Urine Glucose (UA) Trace H (Negative) mg/dL Urine Ketones 1+ H (Negative) mg/dL 03/15/25 03/15/25 03/15/25 Range/Units 05:45 12:43 14:15 WBC 16.7 H (4.5-10.0) K/mm3 Hgb 13.9 L (14.0-18.0) g/dL Hct 40.9 L (42.0-52.0) % MCHC (32-36) g/dl Immature Gran % (Auto) (0-0.5) % Neut % (Auto) (45.5-73.1) % Lymph % (Auto) (18.3-44.2) % [place] # (Auto) (0.1-0.6) K/mm3 Abs Immat Gran (auto) (0.00-0.031) K/mm3 Absolute Neuts (auto) (1.3-6.7) K/mm3 Sodium 126 L 127 L (137-145) mmol/L Potassium 5.1 H (3.4-5.0) mmol/L Chloride 92 L 93 L (98-107) mmol/L Carbon Dioxide 21 L (22-30) mmol/L Anion Gap 13 H (4-12) mmol/L BUN (9-20) mg/dL Creatinine 0.65 L (0.7-1.3) mg/dL Glucose 215 H 224 H (65-110) mg/dL POC Capillary Glucose 228 H (65-105) mg/dl Phosphorus 4.6 H (2.5-4.5) mg/dL Urine Protein (Negative) mg/dL Urine Glucose (UA) (Negative) mg/dL Urine Ketones (Negative) mg/dL H & H 03/14/25 03/15/25 Range/Units 20:37 05:45 Hgb 14.9 13.9 L (14.0-18.0) g/dL Hct 41.0 L 40.9 L (42.0-52.0) % Coagulation 03/14/25 Range/Units 20:37 INR 0.9 All other labs normal. Diagnostic results Ankle/Foot x-ray: image reviewed ( Left ankle trimalleolar fracture with improved alignment after reduction and splinting.)
[2025-03-15] MEDS: FAMOTIDINE 20 MG TABLET 40 MG PO (20:52)
[2025-03-15] MEDS: SIMVASTATIN 20 MG TABLET 80 MG PO (20:54)
[2025-03-16] VITALS (18 sets, daily range): BP systolic 102–153; BP diastolic 54–77; PULSE 81–117; RESP 14–24; TEMP 36.2–37.2; O2SAT 94–100
[2025-03-16] MEDS: HYDROcodone/acetaminophen (*CRX) 5-325 MG TABLET 1 TAB PO ×2 (02:56→22:45)
[2025-03-16] MEDS: SODIUM CHLORIDE 0.9% IV 1,000 ML 100 ML IV CONT (02:58)
[2025-03-16] MEDS: chlordiazePOXIDE (*CRX) 25 MG CAPSULE 50 MG PO ×2 (05:54→21:03)
[2025-03-16 06:19] LABS: Influenza A QL RT-PCR Negative (Negative); Influenza B QL RT-PCR Negative (Negative); RSV RNA, RT-PCR Negative (Negative); SARS-CoV-2 RNA PCR Negative (Negative)
[2025-03-16 08:30] LABS: Hematocrit 39.1 % (42.0-52.0); Hemoglobin 13.0 g/dL (14.0-18.0); Mean Corpuscular HGB Conc 33.2 g/dl (32-36); Mean Corpuscular Hemoglobin 30.0 pg (26-34); Mean Corpuscular Volume 90.3 fl (80-100); Platelet Count Result 317 k/mm3 (150-375); Red Blood Count 4.33 M/mm3 (4.6-6.20); White Blood Count 13.8 K/mm3 (4.5-10.0)
[2025-03-16 08:43] LABS: Alanine Aminotransferase 40 U/L (6-50); Albumin Level 4.3 g/dL (3.5-5.1); Alkaline Phosphatase 97 U/L (38-126); Anion Gap 11 mmol/L (4-12); Aspartate Amino Transferase 32 U/L (17-59); Bilirubin,Total 0.7 mg/dL (0.2-1.3); Blood Urea Nitrogen 6 mg/dL (9-20); Calcium 9.2 mg/dL (8.4-10.2); Carbon Dioxide 24 mmol/L (22-30); Chloride 95 mmol/L (98-107); Estimated CRCL calculation 157 ml/min; Estimated Glomerular Filt Rate > 60; Glucose 163 mg/dL (65-110); Potassium 4.2 mmol/L (3.4-5.0); Sodium 130 mmol/L (137-145); Total Protein 6.4 g/dL (6.3-8.2)
[2025-03-16] MEDS: FLUTICASONE PROPIONATE 0.05% NA SPR 16 GM BTL (*BKC) 2 SPRAY NASAL (09:40)
[2025-03-16 10:29] LABS: Magnesium 1.9 mg/dL (1.6-2.3)
[2025-03-16] MEDS: IPRATROPIUM 0.5 MG/ALBUTEROL SULFATE 2.5 MG AMPUL.NEB 3 ML INHALATION (11:06)
--- NOTE | 2025-03-16 11:25 | P.PNIM_ITS ---
Progress Note: A&P Assessment and Plan (1) Trimalleolar fracture of left ankle: Qualifiers: Encounter type: initial encounter Fracture type: closed Qualified Code(s): S82.852A - Displaced trimalleolar fracture of left lower leg, initial encounter for closed fracture Code(s): S82.852A - Displaced trimalleolar fracture of left lower leg, initial encounter for closed fracture Status: Acute Assessment and Plan: Patient has had a trimalleolar fracture of the left ankle. Orthopedic surgery has been consulted. Patient was NPO at midnight for anticipation of possible surgical procedure. * Will keep extremity elevated. * Will provide ice pack. * Surgery planned 03/16/2025 Non-weight bearing post-op * pain management * PT/OT evaluation (2) ETOH abuse: Code(s): F10.10 - Alcohol abuse, uncomplicated Status: Acute Assessment and Plan: patient has history alcohol abuse reported he was drinking earlier prior to ar rival and fall states he has only had mild withdrawal symptoms no seizure-like activities * IV fluids * Thiamine, folic acid, and multi-vitamin * PPI daily * librium * Ativan PRN for seizure activity * CIWA daily * Monitor and replenish electrolytes as needed * Seizure precautions if indicated (3) Hyponatremia: Code(s): E87.1 - Hypo-osmolality and hyponatremia Status: Acute Assessment and Plan: hyponatremia likely secondary to patient's dehydration and alcohol intoxication * continue with IV fluids improving sodium 130 * trend (4) Type 1 diabetes mellitus: Qualifiers: Diabetes mellitus complication detail: with diabetic microalbuminuria Diabetes mellitus complication status: with kidney complications Qualified Code(s): E10.29 - Type 1 diabetes mellitus with other diabetic kidney complication; R80.9 - Proteinuria, unspecified Code(s): E10.9 - Type 1 diabetes mellitus without complications Status: Acute Assessment and Plan: patient is a type 1 diabetic * ACCU check ACHS * resume patient's long insulin and sliding scale insulin * diabetic diet * hypoglycemic protocol (5) Continuous tobacco abuse: Code(s): Z72.0 - Tobacco use Status: Acute Assessment and Plan: * nicotine patch p.r.n. * remove at night * encouraged smoking cessation (6) Essential hypertension: Code(s): I10 - Essential (primary) hypertension Status: Acute Assessment and Plan: mildly elevated BP POA * resume lisinopril * added hydralazine IV push for systolics over 160 * monitor BP per unit protocol Plan Code status: Full code per patient DVT prophylaxis: Lovenox Stress ulcer prophylaxis: Protonix 40 daily PT/OT notes: PT/OT post op Disposition: patient admitted to the medical unit plan for surgical repair of left ankle fracture today 03/16/2025. patient is currently nonweightbearing may need rehab placement PT/OT evaluation pending. Time Spent With Patient Time with patient: 15 - 25 minutes Subjective Date/time seen: 03/16/25 11:25 Interval history: Patient is a 44-year-old male who was admitted for surgical repair of left ankle fracture patient with long history of EtOH abuse need to monitor for alcohol withdrawals, patient is also a type 1 diabetic monitor glucose closely. 03/16/2025 Patient seen post-op drowsy from anesthesia but comfortable denies any current left lower extremity pain denied any chest pain, shortness a breath reported wheezing and cough improved with nebulizer treatment. Review of Systems Review of Systems: 12 systems were reviewed with pertinent positives and negatives per HPI. Except as documented in the HPI, all other systems were reviewed and are negative. All systems reviewed & are unremarkable except as noted in HPI and below Exam Const: General: comfortable and no acute distress Other: Obese, no acute distress, appears stated age HENMT: Mouth: Yes moist mucous membranes Eyes: General: appearance normal, both eyes and all related structures Neck: Neck: supple and no JVD Resp: Effort & Inspection: normal respiratory effort Auscultation: wheezes scattered wheezes Cardio: Rate: regular rate Rhythm: regular rhythm GI: GI Palp: Yes Soft to palpation Auscultation: normal bowel sounds Other: Obese Skin: General skin exam: normal color and no rashes or lesions noted Wounds: no wounds Other: Kunal facial complexion, no petechiae Neuro: General: gait normal Speech: normal speech Motor exam (neuro): 5/5 motor strength present throughout Extrem: Other: Left lower extremity is in a splint distal extremity is neurovascularly intact with 2-3 second cap refill Psych: Other: Appropriate mood and affect, pleasant and cooperative, judgment and insight intact Objective Data Vital Signs Vital Signs: Vital Signs - 24 hr 03/15/25 14:00 03/15/25 22:00 03/16/25 00:00 Temperature 98.4 F 97.5 F L Pulse Rate 93 86 Respiratory Rate 16 18 Blood Pressure 147/65 H 151/77 H 151/77 H Pulse Oximetry 100 99 Oxygen Delivery 03/16/25 04:00 03/16/25 06:00 03/16/25 08:00 Temperature 98.5 F Pulse Rate 81 Respiratory Rate 18 Blood Pressure 151/77 H 145/66 H Pulse Oximetry 100 98 Oxygen Delivery Room Air Intake/Output Intake/Output: Intake & Output 03/13/25 03/14/25 03/15/25 03/16/25 23:59 23:59 23:59 23:59 Intake Total 3773.3 2036.7 Output Total 750 3000 Balance 3023.3 -963.3 Meds/Results Medications: Active Medications Generic Name Dose Route Start Last Admin Trade Name Freq PRN Reason Stop Dose Admin Acetaminophen 650 mg 03/14/25 22:25 Acetaminophen 325 Mg Tablet PO Q4H PRN Mild Pain (1-3) or Fever Hydrocodone Bitart/Acetaminophen 1 tab 03/14/25 22:25 03/16/25 02:56 Hydrocodone/Acetaminophen (*Crx) 5-325 Mg Tablet PO 1 tab Q4H PRN Administration Pain Rated 4-6 Albuterol/Ipratropium 3 ml 03/16/25 07:55 03/16/25 11:06 Ipratropium 0.5 Mg/Albuterol Sulfate 2.5 Mg Ampul.Neb 3 Ml INHALATION 3 ml Q6HRT PRN Administration sob Chlordiazepoxide HCl 50 mg 03/15/25 12:20 03/16/25 05:54 Chlordiazepoxide (*Crx) 25 Mg Capsule PO 50 mg Q6HR SUREKHA Administration Dextrose 12.5 gm 03/14/25 22:27 Dextrose 50% 25 Gm/50 Ml Syringe IV PUSH PRN PRN Hypoglycemia Protocol Diazepam 5 mg 03/15/25 13:47 03/15/25 21:36 Diazepam Inj (*Crx) 10 Mg/2 Ml Syringe IV PUSH 5 mg Q8HR PRN Administration Muscle Spasticity Enoxaparin Sodium 40 mg 03/16/25 09:00 03/16/25 09:37 Enoxaparin 40 Mg/0.4 Ml Syringe SUB-Q Not Given DAILY SUREKHA Famotidine 40 mg 03/15/25 21:00 03/15/25 20:52 Famotidine 20 Mg Tablet PO 40 mg HS SUREKHA Administration Fluticasone Propionate 2 spray 03/15/25 09:00 03/16/25 09:40 Fluticasone Propionate 0.05% Na Spr 16 Gm Btl (*Bkc) NASAL 2 spray DAILY SUREKHA Administration Folic Acid 1 mg 03/15/25 09:00 03/15/25 09:26 Folic Acid 1 Mg Tablet PO 1 mg DAILY SUREKHA Administration Glucagon 1 mg 03/14/25 22:27 Glucagon For Inj 1 Mg Vial IM PRN PRN Hypoglycemia Protocol Glucose 15 gm 03/14/25 22:27 Glucose Oral Gel 15 Gm Of Glucse In 37.5 Gm Tube PO PRN PRN Hypoglycemia Protocol Guaifenesin/Dextromethorphan 1 tab 03/16/25 09:00 03/16/25 09:38 Guaifenesin 600 Mg/Dextromethorphan 30 Mg Sr Tab 12 Hr PO Not Given Q12HR SRUEKHA Hydralazine HCl 20 mg 03/15/25 08:32 Hydralazine Hcl 20 Mg/Ml Vial IV PUSH Q6H PRN Hypertension Hydromorphone HCl 0.5 mg 03/14/25 22:25 03/15/25 06:28 Hydromorphone Hcl Inj (*Crx) 2 Mg/Ml Vial IV PUSH 0.5 mg Q4H PRN Administration Pain Rated 7-10 Dextrose 1,000 mls @ 100 mls/hr 03/14/25 22:27 Dextrose 5% 1,000 Ml IVPB PRN PRN Hypoglycemia Protocol Insulin Aspart 0 units 03/15/25 21:00 03/16/25 09:00 Insulin Aspart (*Bkc) 100 Units/Ml SUB-Q Not Given 0800,1200,1700,2100 [facility] Insulin Glargine 40 units 03/15/25 09:00 03/16/25 09:38 Insulin Glargine (*Bkc) 100 Units/Ml SUB-Q Not Given Q12HR SUREKHA Lisinopril 20 mg 03/15/25 09:00 03/15/25 09:26 Lisinopril 20 Mg Tablet PO 20 mg DAILY SUREKHA Administration Loratadine 10 mg 03/15/25 09:00 03/15/25 09:26 Loratadine 10 Mg Tablet PO 10 mg QAM SUREKHA Administration Lorazepam 2 mg 03/15/25 03:52 03/15/25 09:37 Lorazepam Inj (*Crx) 2 Mg/Ml Vial IV PUSH 2 mg Q4H PRN Administration CIWA 8-15 Miscellaneous Information 1 each 03/15/25 21:00 Pharmacist Communication Order XX 04/14/25 20:59 ACHS SUREKHA Multivitamins Therapeutic 1 tablet 03/15/25 09:00 03/15/25 09:25 Multivitamins Therapeutic Tab (*Bkc) PO 1 tablet QAM [facility] Administration Nicotine 1 patch 03/15/25 03:52 Nicotine (*Pbkc) 21 Mg Patch TRANSDERM DAILY PRN Nicotine withdrawal Ondansetron HCl 4 mg 03/14/25 22:25 Ondansetron Inj 4 Mg/2 Ml Vial IV PUSH Q4H PRN Nausea Pantoprazole Sodium 40 mg 03/15/25 09:00 03/15/25 09:26 Pantoprazole 40 Mg Tablet PO 40 mg QAM SUREKHA Administration Simvastatin 80 mg 03/15/25 21:00 03/15/25 20:54 Simvastatin 20 Mg Tablet PO 80 mg QHS SUREKHA Administration Thiamine HCl 100 mg 03/15/25 09:00 03/15/25 09:26 Thiamine Hcl 100 Mg Tablet PO 100 mg QAM SUREKHA Administration Radiology Results: ITS Impressions Tibia/Fibula X-Ray 03/14/25 18:52 IMPRESSION: Trimalleolar fracture/dislocation of the left ankle. Chest X-Ray 03/16/25 05:51 Impression: Clear lungs. Labs Labs: Laboratory Results - last 24 hr 03/14/25 03/15/25 03/15/25 20:37 12:43 14:15 WBC RBC Hgb Hct MCV MCH MCHC RDW Plt Count MPV Sodium 127 L Potassium 4.6 Chloride 93 L Carbon Dioxide 21 L Anion Gap 13 H BUN 9 Creatinine 0.65 L Estim Creat Clear Calc 146 Estimated GFR > 60 Glucose 224 H POC Capillary Glucose 228 H Calcium 9.1 Magnesium Total Bilirubin AST ALT Alkaline Phosphatase Total Protein Albumin Influenza A (RT-PCR) Influenza B (RT-PCR) RSV (RT-PCR) SARS-CoV-2 RNA (RT-PCR) Antibody Screen Negative 03/15/25 03/15/25 03/16/25 16:42 20:55 05:34 WBC RBC Hgb Hct MCV MCH MCHC RDW Plt Count MPV Sodium Potassium Chloride Carbon Dioxide Anion Gap BUN Creatinine Estim Creat Clear Calc Estimated GFR Glucose POC Capillary Glucose 275 H 212 H Calcium Magnesium Total Bilirubin AST ALT Alkaline Phosphatase Total Protein Albumin Influenza A (RT-PCR) Negative Influenza B (RT-PCR) Negative RSV (RT-PCR) Negative SARS-CoV-2 RNA (RT-PCR) Negative Antibody Screen 03/16/25 03/16/25 08:26 08:58 WBC 13.8 H RBC 4.33 L Hgb 13.0 L Hct 39.1 L MCV 90.3 MCH 30.0 MCHC 33.2 RDW 12.0 Plt Count 317 MPV 8.1 Sodium 130 L Potassium 4.2 Chloride 95 L Carbon Dioxide 24 Anion Gap 11 BUN 6 L Creatinine 0.60 L Estim Creat Clear Calc 157 Estimated GFR > 60 Glucose 163 H POC Capillary Glucose 167 H Calcium 9.2 Magnesium 1.9 Total Bilirubin 0.7 AST 32 ALT 40 Alkaline Phosphatase 97 Total Protein 6.4 Albumin 4.3 Influenza A (RT-PCR) Influenza B (RT-PCR) RSV (RT-PCR) SARS-CoV-2 RNA (RT-PCR) Antibody Screen Quality VTE Prophylaxis VTE prophylaxis: pharmacologic ordered (Lovenox 40 mg subQ daily.) -Patient's previous records reviewed on admission -ER notes reviewed in detail on admission -discussed all findings and current treatment plan with patient/Family/POA -Consultations reviewed for recommendations -Patient's disposition for safe discharge discussed with nurse case manager Dictation performed by [employer] direct speech recognition software, therefore pyrometer temperature regulator variants and typographical errors may occur. Hospitalist MIPS Advance Care Plan I have confirmed that the patient's Advanced Care Plan is present, code status is documented, or surrogate decision maker is listed in patient medical record.: Yes Medication Reconciliation I have utilized all available resources to obtain, update and review the patients current medications (includes all prescriptions, OTC, herbals, cannabis, and nutritional supplements).: Yes The patient is not eligible for med reconciliation; the patient is in a emergent medical situation where delaying treatment would jeopardize the patients health.: No
[2025-03-16] MEDS: ACETAMINOPHEN 500 MG TABLET 1000 MG PO (12:25)
--- NOTE | 2025-03-16 12:26 | WPDANESEPPF ---
Anes - Initial Pre Proc Eval Procedure: Operation Date: 03/16/25 13:00 Proposed Procedures p Open Reduction Internal Fixation Left Ankle Fracture - Shemar Lara MD Date/Time: 03/16/25 12:26 Surgeon: Fidelia Terrell DO Pre Op Diagnosis: Trimalleolar fracture, Hyponatremia Patient Data Age: 44 Gender: M Height: 1.75 m Weight: 101.6 kg Last Vital Signs Temp 98.5 F 03/16/25 06:00 Pulse 81 03/16/25 06:00 Resp 18 03/16/25 06:00 BP 145/66 H 03/16/25 06:00 Pulse Ox 98 03/16/25 08:00 O2 Del Method Room Air 03/16/25 08:00 Allergies Allergy/AdvReac Type Severity Reaction Status Date / Time amoxicillin Allergy Mild Unknown Verified 03/14/25 23:46 shellfish derived Allergy Mild Vomiting Verified 03/14/25 23:46 Home Medications ?Medication ?Instructions ?Recorded ?Confirmed ?Type aspirin 81 mg tablet,delayed 81 mg PO DAILY 03/14/25 03/14/25 History release (Adult Aspirin Regimen) fluticasone propionate 50 2 spray intranasal DAILY 03/14/25 03/14/25 History mcg/actuation nasal spray,suspension levocetirizine 5 mg tablet (24HR 5 mg PO DAILY 03/14/25 03/14/25 History Allergy Relief) lisinopril 20 mg tablet 20 mg PO DAILY 03/14/25 03/14/25 History omeprazole 20 mg capsule,delayed 20 mg PO DAILY 03/14/25 03/14/25 History release pioglitazone 15 mg tablet 15 mg PO DAILY 03/14/25 03/15/25 History simvastatin 80 mg tablet 80 mg PO DAILY 03/14/25 03/14/25 History famotidine 40 mg tablet 40 mg PO HS 03/15/25 03/15/25 History insulin glargine 100 unit/mL 54 unit subcut BID 03/15/25 03/15/25 History subcutaneous solution (Lantus U-100 Insulin) insulin lispro 100 unit/mL 1 sliding scale dose subcut 03/15/25 03/15/25 History subcutaneous cartridge USEASDIRECTD Laboratory Tests 03/14/25 03/15/25 03/15/25 20:37 12:43 14:15 WBC RBC Hgb Hct MCV MCH MCHC RDW Plt Count MPV Sodium 127 L mmol/L (137-145) Potassium 4.6 mmol/L (3.4-5.0) Chloride 93 L mmol/L (98-107) Carbon Dioxide 21 L mmol/L (22-30) Anion Gap 13 H mmol/L (4-12) BUN 9 mg/dL (9-20) Creatinine 0.65 L mg/dL (0.7-1.3) Estim Creat Clear Calc 146 ml/min Estimated GFR > 60 (59 - ) Glucose 224 H mg/dL (65-110) POC Capillary Glucose 228 H mg/dl (65-105) Calcium 9.1 mg/dL (8.4-10.2) Magnesium Total Bilirubin AST ALT Alkaline Phosphatase Total Protein Albumin Influenza A (RT-PCR) Influenza B (RT-PCR) RSV (RT-PCR) SARS-CoV-2 RNA (RT-PCR) Antibody Screen Negative 03/15/25 03/15/25 03/16/25 16:42 20:55 05:34 WBC RBC Hgb Hct MCV MCH MCHC RDW Plt Count MPV Sodium Potassium Chloride Carbon Dioxide Anion Gap BUN Creatinine Estim Creat Clear Calc Estimated GFR Glucose POC Capillary Glucose 275 H mg/dl 212 H mg/dl (65-105) (65-105) Calcium Magnesium Total Bilirubin AST ALT Alkaline Phosphatase Total Protein Albumin Influenza A (RT-PCR) Negative (Negative) Influenza B (RT-PCR) Negative (Negative) RSV (RT-PCR) Negative (Negative) SARS-CoV-2 RNA (RT-PCR) Negative (Negative) Antibody Screen 03/16/25 03/16/25 03/16/25 08:26 08:58 11:34 WBC 13.8 H K/mm3 (4.5-10.0) RBC 4.33 L M/mm3 (4.6-6.20) Hgb 13.0 L g/dL (14.0-18.0) Hct 39.1 L % (42.0-52.0) MCV 90.3 fl (80-100) MCH 30.0 pg (26-34) MCHC 33.2 g/dl (32-36) RDW 12.0 % (11.5-14.5) Plt Count 317 k/mm3 (150-375) MPV 8.1 fl (7.4-10.4) Sodium 130 L mmol/L (137-145) Potassium 4.2 mmol/L (3.4-5.0) Chloride 95 L mmol/L (98-107) Carbon Dioxide 24 mmol/L (22-30) Anion Gap 11 mmol/L (4-12) BUN 6 L mg/dL (9-20) Creatinine 0.60 L mg/dL (0.7-1.3) Estim Creat Clear Calc 157 ml/min Estimated GFR > 60 (59 - ) Glucose 163 H mg/dL (65-110) POC Capillary Glucose 167 H mg/dl 192 H mg/dl (65-105) (65-105) Calcium 9.2 mg/dL (8.4-10.2) Magnesium 1.9 mg/dL (1.6-2.3) Total Bilirubin 0.7 mg/dL (0.2-1.3) AST 32 U/L (17-59) ALT 40 U/L (6-50) Alkaline Phosphatase 97 U/L (38-126) Total Protein 6.4 g/dL (6.3-8.2) Albumin 4.3 g/dL (3.5-5.1) Influenza A (RT-PCR) Influenza B (RT-PCR) RSV (RT-PCR) SARS-CoV-2 RNA (RT-PCR) Antibody Screen 03/16/25 12:07 WBC RBC Hgb Hct MCV MCH MCHC RDW Plt Count MPV Sodium Potassium Chloride Carbon Dioxide Anion Gap BUN Creatinine Estim Creat Clear Calc Estimated GFR Glucose POC Capillary Glucose 186 H mg/dl (65-105) Calcium Magnesium Total Bilirubin AST ALT Alkaline Phosphatase Total Protein Albumin Influenza A (RT-PCR) Influenza B (RT-PCR) RSV (RT-PCR) SARS-CoV-2 RNA (RT-PCR) Antibody Screen Patient hx anesthesia problems: none Family hx anesthesia problems: none Results Review: All pre-operative results and documents have been reviewed as part of the pre-operative evaluation. [facility] Past Medical History Medical History Macroalbuminuric diabetic nephropathy On lisinopril Continuous tobacco abuse Diabetic retinopathy Type 1 diabetes mellitus Since [id number] Allergic rhinitis Hyperlipidemia Essential hypertension GERD (gastroesophageal reflux disease) Surgical History Surgical History Status post open reduction with internal fixation of fracture Right thumb repair History of umbilical hernia repair X2 Family History Family History Other Lung cancer Other Brain cancer Other Mouth cancer Mother Healthy adult Father Healthy adult Social History Social History Social History: Patient is single and does not have any children. 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 He has smoked between 15-20 cigarettes a day since his early 20s. He drinks between 12-18 beers a day and has drink heavily for at least 10 years. He denies illicit substance use. Code status: Full code Surrogate decision maker: Tu (brother) Smoking packs per day: 0.75 Smoking cigarettes per day: 15.0 Years smoked: 20 Smoking pack-years: 15.00 Smoking status: Current every day smoker Tobacco type: cigarettes and e-cigarettes/vaping Alcohol intake: current Drinks per week: 105 Substance use: never Substance use type: does not use Do You Feel Safe in your Home?: Yes Lack of Transportation: No Lack of Food: Never True Current Housing: I Have Housing Concerned About Future Housing: No Difficulty Paying Gas/Electric Bills: No Difficulty Paying for Meds: No Currently Unemployed: No Education: Master's Degree or Higher Difficulty w/ Childcare or Family Care: No Spiritual care concerns: No Anes - Eval Final PreProcedure Day of Procedure 03/16/25 12:26 Patient weight: obese Heart: regular rate and rhythm Lungs: normal air movement and decreased breath sounds Airway: Mallampati scale class IV and special considerations large neck Neurological: alert and oriented Last oral intake: >/= 8 hours ASA classification: IV Emergent: no Anesthetic plan: proceed Anesthesia type and monitoring: general ETT and standard monitoring Results Review: All pre-operative results and documents have been reviewed as part of the pre-operative evaluation. Complicated pt for ortho surgery after fall 2 days ago. Active smoker 1 ppd for 25 years, suspect BONY but pt has not had sleep study. DM 1 as an infant, not on insulin pump at this time w fair control (fsbs 186), ETOH use, pt admits 15-18 beers/day. Full discussion w pt and mother at bedside and all questions answered to the best of my ability. Informed Consent: The patient's anesthetic plan and its attendant risks and benefits were discussed with the patient/family/POA. Questions were solicited and answers provided to the satisfaction of the patient/family/POA.
--- NOTE | 2025-03-16 12:27 | WPDHPUPDATE1 ---
History and Physical Update Update Date/Time: 03/16/25 12:27 History and Physical has been reviewed, including an updated exam of the patient. There are NO changes in the patient's condition. Risks, benefits, and alternatives have been discussed and questions answered. Patient agrees to proceed with procedure.
[2025-03-16] MEDS: LACTATED RINGERS 1,000 ML 30 ML IV CONT ×2 (12:33→14:45)
[2025-03-16] MEDS: ceFAZolin 2 GM/D5W 50 ML 2 GM/50 ML BAG IVPB (12:52)
[2025-03-16] MEDS: BUPIVACAINE/EPINEPHRINE 0.5% 50 ML VIAL 30 ML INFILTRATE (13:28)
--- NOTE | 2025-03-16 15:14 | W.PM.PROC2 ---
Procedure Note - Detailed Date of Procedure 03/16/25 Pre-op Diagnosis Trimalleolar left ankle fracture Post-op Diagnosis Same Procedure Performed ORIF LT ankle trimal with fixation medial and lateral mal fxs Surgeon Shemar Lara MD Admission Nurse Coordinator 1st shampoo assistant Anesthesia General Indications 44-year-old who slipped and fell and sustained a left ankle trimalleolar fracture dislocation. This was reduced in the emergency room. He was medically stabilized and presents now for operative treatment. Description of Procedure After informed consent, the operative extremity was marked in the preoperative holding area. Patient received intravenous antibiotics. Patient was then taken to the operating room and underwent general anesthesia by the anesthesia team. Positioned supine on the operating room table with a soft bump under the ipsilateral hip. A time-out was performed confirming the patient, site of the surgery, operative plan. Lower extremity then prepped and draped in the usual sterile surgical fashion using ChloraPrep skin solution. Foot and ankle exsanguinated and a thigh tourniquet inflated to 250 mmHg. Longitudinal incision made over the lateral ankle distal fibula with a 15 blade knife. Hemostasis controlled with electrocautery. Full-thickness soft tissue flaps developed and the fascia was incised in line with the skin incision. A no-touch technique was employed for the skin to avoid any skin damage. Fracture identified and cleared with a dental pick, irrigation and rongeur. Fracture reduced and held with bone-holding clamp. Image intensification confirmed reduction of the fracture and the ankle mortise. Fixation achieved with a 3.5 millimeter fully-threaded cortical screw placed in lag technique across the fracture. Neutralization with a lateral plate with unicortical screws distal to fracture and bicortical screws proximal to the fracture. Good alignment and stability of the fracture noted. Image intensification used to confirm reduction of the fracture and placement of the hardware. Medial side then addressed. Longitudinal incision made with a 15 blade knife over the medial malleolus fracture. Hemostasis controlled with electrocautery. Fascia incised in line with skin incision. Periosteum cleared from the medial malleolus fracture. Medial side of the joint inspected and noted to have mild amount of trauma to the chondral surface. Thorough irrigation of the ankle joint and suctioned out. Fracture reduced and provisionally pinned. Fixation achieved with 4.0 mm partially threaded cancellous screw placed in cannulated screw fashion. Image intensification confirmed reduction of the fracture and placement of the hardware. Stress of the ankle performed with good stability of the ankle mortise in all directions. Posterior malleolus noted to be reduced and stable. Wounds thoroughly irrigated with antibiotic solution. Fascia repaired with 00 Vicryl interrupted suture. Subcutaneous tissue repaired with 000 Monocryl interrupted suture and Skin approximated with lorena. Sterile dressings applied followed by bulky dressing and splint. Patient awoken from anesthesia, extubated and taken to the recovery room in stable condition. All sponge, needle and instrument counts correct at the end of the case. Palpable dorsalis pedis pulse noted prior to dressing. Implants Arthrex distal fibula plate, 5 hole. 3.5 mm lag screw x1. 4.0 mm cannulated screw x1 Estimated Blood Loss 10 Tourniquet Time Total Tourniquet Time: 60 Urine Output 3,000 Drains No Packing No Pathology None sent Complications No immediate complications Condition Stable Disposition PACU [facility] Billing Surgery - Charge Forward: Surgery Billing ([id number])
[2025-03-16] MEDS: LORATADINE 10 MG TABLET PO (17:47)
[2025-03-16] MEDS: PANTOPRAZOLE 40 MG TABLET PO (17:47)
[2025-03-16] MEDS: THIAMINE HCL 100 MG TABLET PO (17:47)
[2025-03-16] MEDS: MULTIVITAMINS THERAPEUTIC TAB (*BKC) 1 TABLET PO (17:47)
[2025-03-16] MEDS: SENNA/DOCUSATE SODIUM TABLET 2 TAB PO (17:47)
[2025-03-16] MEDS: FOLIC ACID 1 MG TABLET PO (17:47)
[2025-03-16] MEDS: INSULIN ASPART (*BKC) 100 UNITS/ML SUB-Q (17:51)
[2025-03-16] MEDS: SIMVASTATIN 20 MG TABLET 80 MG PO (20:51)
[2025-03-16] MEDS: ceFAZolin 1 GM/NS 50 ML 1 GM/50 ML BAG IVPB (20:51)
[2025-03-16] MEDS: guaiFENesin 600 MG/DEXTROMETHORPHAN 30 MG SR TAB 12 HR 1 TAB PO (20:52)
[2025-03-16] MEDS: FAMOTIDINE 20 MG TABLET 40 MG PO (20:52)
[2025-03-16] MEDS: INSULIN GLARGINE (*BKC) 100 UNITS/ML 40 UNITS SUB-Q (21:08)
[2025-03-16] MEDS: LORazepam INJ (*CRX) 2 MG/ML VIAL IV PUSH (22:47)
[2025-03-17] VITALS (10 sets, daily range): BP systolic 129–168; BP diastolic 62–69; PULSE 92–110; RESP 18–20; TEMP 36.4–37.3; O2SAT 96–99
[2025-03-17] MEDS: diazePAM INJ (*CRX) 10 MG/2 ML SYRINGE 5 MG IV PUSH ×2 (02:24→21:07)
[2025-03-17] MEDS: ceFAZolin 1 GM/NS 50 ML 1 GM/50 ML BAG IVPB ×2 (04:23→13:05)
[2025-03-17] MEDS: LORazepam INJ (*CRX) 2 MG/ML VIAL IV PUSH (04:24)
[2025-03-17] MEDS: HYDROcodone/acetaminophen (*CRX) 5-325 MG TABLET 1 TAB PO ×2 (04:24→08:49)
[2025-03-17] MEDS: chlordiazePOXIDE (*CRX) 25 MG CAPSULE 50 MG PO ×3 (05:22→21:06)
[2025-03-17 06:06] LABS: Hematocrit 36.1 % (42.0-52.0); Hemoglobin 12.0 g/dL (14.0-18.0); Mean Corpuscular HGB Conc 33.2 g/dl (32-36); Mean Corpuscular Hemoglobin 30.0 pg (26-34); Mean Corpuscular Volume 90.3 fl (80-100); Platelet Count Result 315 k/mm3 (150-375); Red Blood Count 4.00 M/mm3 (4.6-6.20); White Blood Count 17.2 K/mm3 (4.5-10.0)
[2025-03-17 06:16] LABS: Alanine Aminotransferase 32 U/L (6-50); Albumin Level 4.3 g/dL (3.5-5.1); Alkaline Phosphatase 92 U/L (38-126); Anion Gap 17 mmol/L (4-12); Aspartate Amino Transferase 30 U/L (17-59); Bilirubin,Total 0.7 mg/dL (0.2-1.3); Blood Urea Nitrogen 5 mg/dL (9-20); Calcium 8.9 mg/dL (8.4-10.2); Carbon Dioxide 16 mmol/L (22-30); Chloride 94 mmol/L (98-107); Estimated CRCL calculation 148 ml/min; Estimated Glomerular Filt Rate > 60; Glucose 206 mg/dL (65-110); Magnesium 1.8 mg/dL (1.6-2.3); Potassium 4.3 mmol/L (3.4-5.0); Sodium 127 mmol/L (137-145); Total Protein 6.3 g/dL (6.3-8.2)
--- NOTE | 2025-03-17 07:19 | WPDANESPN ---
Anes - Prog Note Post-Op Date/Time: 03/17/25 07:19 Cardiovascular status: normal Respiratory status: normal Airway patency: baseline Mental status: baseline Post-Op hydration status: normal Vital Signs: Last Vital Signs Temp 37.1 C 03/17/25 06:03 Pulse 95 03/17/25 06:03 Resp 18 03/17/25 06:03 BP 139/66 03/17/25 06:03 Pulse Ox 96 03/17/25 06:03 O2 Del Method Room Air 03/16/25 20:00 O2 Flow Rate 8 03/16/25 15:15 Pain Score (VAS): 3 I/O: Intake & Output 03/16/25 03/16/25 03/17/25 15:59 23:59 07:59 Intake Total 50 530 1700 Output Total 3000 1400 4400 Balance -2950 -870 -2700 Laboratory Tests 03/17/25 05:49 03/17/25 05:49 03/16/25 03/16/25 03/16/25 08:26 08:58 11:34 WBC 13.8 H RBC 4.33 L Hgb 13.0 L Hct 39.1 L MCV 90.3 MCH 30.0 MCHC 33.2 RDW 12.0 Plt Count 317 MPV 8.1 Sodium 130 L Potassium 4.2 Chloride 95 L Carbon Dioxide 24 Anion Gap 11 BUN 6 L Creatinine 0.60 L Estim Creat Clear Calc 157 Estimated GFR > 60 Glucose 163 H POC Capillary Glucose 167 H 192 H Calcium 9.2 Magnesium 1.9 Total Bilirubin 0.7 AST 32 ALT 40 Alkaline Phosphatase 97 Total Protein 6.4 Albumin 4.3 03/16/25 03/16/25 03/16/25 12:07 14:50 16:28 WBC RBC Hgb Hct MCV MCH MCHC RDW Plt Count MPV Sodium Potassium Chloride Carbon Dioxide Anion Gap BUN Creatinine Estim Creat Clear Calc Estimated GFR Glucose POC Capillary Glucose 186 H 194 H 216 H Calcium Magnesium Total Bilirubin AST ALT Alkaline Phosphatase Total Protein Albumin 03/16/25 03/17/25 20:59 05:49 WBC 17.2 H RBC 4.00 L Hgb 12.0 L Hct 36.1 L MCV 90.3 MCH 30.0 MCHC 33.2 RDW 11.8 Plt Count 315 MPV 8.4 Sodium 127 L Potassium 4.3 Chloride 94 L Carbon Dioxide 16 L Anion Gap 17 H BUN 5 L Creatinine 0.64 L Estim Creat Clear Calc 148 Estimated GFR > 60 Glucose 206 H POC Capillary Glucose 274 H Calcium 8.9 Magnesium 1.8 Total Bilirubin 0.7 AST 30 ALT 32 Alkaline Phosphatase 92 Total Protein 6.3 Albumin 4.3 Post-procedural complaints: none Patient Feedback: Patient satisfied with anesthetic care.
--- NOTE | 2025-03-17 07:54 | PM.PNORT ---
Progress Note: A&P Assessment and Plan (1) Trimalleolar fracture of left ankle: Qualifiers: Encounter type: initial encounter Fracture type: closed Qualified Code(s): S82.852A - Displaced trimalleolar fracture of left lower leg, initial encounter for closed fracture Code(s): S82.852A - Displaced trimalleolar fracture of left lower leg, initial encounter for closed fracture Status: Acute Assessment and Plan: POD 1 ORIF LT ankle Pain control. PT/OT- NWB lt leg Lovenox for dvt D/C home, f/u 1 week Subjective Subjective Date/Time Seen: 03/17/25 07:54 Post Op day: 1 Principal diagnosis: Left Ankle Trimalleolar fracture Interval history: POD 1 ORIF LT ankle Comfortable, no problems over night Exam Const: General: healthy appearing; No in distress or confusion Orientation/consciousness: patient oriented x3 and No confusion HENMT: Head: normal to inspection, normocephalic and atraumatic Eyes: Conjunctivae: conjunctivae normal Sclera: sclerae normal Resp: Effort & Inspection: normal respiratory effort and no audible wheezes Neuro: General: patient oriented x3 and No confusion Extrem: Other: LT ankle splint in place, Toes pink, good sensation and cap refill. Negative Homans Psych: Affect: normal affect Objective Data Vital Signs Vital Signs: Vital Signs - 24 hr 03/16/25 08:00 03/16/25 12:29 03/16/25 14:45 Temperature 98.9 F 97.1 F L Pulse Rate 103 H 88 Respiratory Rate 24 H Blood Pressure 153/58 H 110/54 L Pulse Oximetry 98 97 99 Oxygen Delivery Room Air Room Air Room Air Oxygen Flow Rate 03/16/25 15:00 03/16/25 15:15 03/16/25 15:30 Temperature Pulse Rate 91 95 87 Respiratory Rate 22 H 18 15 Blood Pressure 102/58 L 109/59 L 116/62 Pulse Oximetry 99 99 98 Oxygen Delivery Simple Face Mask Simple Face Mask Room Air Oxygen Flow Rate 8 8 03/16/25 15:45 03/16/25 16:00 03/16/25 16:00 Temperature 98.9 F Pulse Rate 94 92 Respiratory Rate 20 18 Blood Pressure 117/59 L 113/64 124/76 Pulse Oximetry 94 94 Oxygen Delivery Room Air Room Air Oxygen Flow Rate 03/16/25 16:15 03/16/25 16:30 03/16/25 16:45 Temperature 98.8 F 97.3 F L Pulse Rate 90 93 92 Respiratory Rate 18 16 16 Blood Pressure 111/60 127/60 125/61 Pulse Oximetry 94 94 95 Oxygen Delivery Room Air Oxygen Flow Rate 03/16/25 17:15 03/16/25 18:15 03/16/25 20:00 Temperature 98.2 F 97.7 F Pulse Rate 96 99 Respiratory Rate 14 16 Blood Pressure 130/59 L 133/60 131/64 Pulse Oximetry 95 96 Oxygen Delivery Oxygen Flow Rate 03/16/25 20:00 03/16/25 22:03 03/17/25 00:00 Temperature 97.8 F Pulse Rate 117 H 117 H Respiratory Rate 18 18 Blood Pressure 131/64 131/64 Pulse Oximetry 94 94 Oxygen Delivery Room Air Oxygen Flow Rate 03/17/25 02:03 03/17/25 03:14 03/17/25 06:03 Temperature 97.6 F 98.8 F Pulse Rate 99 95 Respiratory Rate 18 18 Blood Pressure 129/63 129/63 139/66 Pulse Oximetry 96 96 Oxygen Delivery Oxygen Flow Rate Intake/Output Intake/Output: Intake & Output 03/14/25 03/15/25 03/16/25 03/17/25 23:59 23:59 23:59 23:59 Intake Total 3773.3 2616.7 1700 Output Total 750 7400 4400 Balance 3023.3 -4783.3 -2700 Meds/Results Medications: Active Medications Generic Name Dose Route Start Last Admin Trade Name Freq PRN Reason Stop Dose Admin Acetaminophen 650 mg 03/14/25 22:25 Acetaminophen 325 Mg Tablet PO Q4H PRN Mild Pain (1-3) or Fever Hydrocodone Bitart/Acetaminophen 1 tab 03/14/25 22:25 03/17/25 04:24 Hydrocodone/Acetaminophen (*Crx) 5-325 Mg Tablet PO 1 tab Q4H PRN Administration Pain Rated 4-6 Albuterol/Ipratropium 3 ml 03/16/25 07:55 03/16/25 11:06 Ipratropium 0.5 Mg/Albuterol Sulfate 2.5 Mg Ampul.Neb 3 Ml INHALATION 3 ml Q6HRT PRN Administration sob Chlordiazepoxide HCl 50 mg 03/16/25 14:00 03/17/25 05:22 Chlordiazepoxide (*Crx) 25 Mg Capsule PO 50 mg Q8HR SUREKHA Administration Dextrose 12.5 gm 03/14/25 22:27 Dextrose 50% 25 Gm/50 Ml Syringe IV PUSH PRN PRN Hypoglycemia Protocol Diazepam 5 mg 03/15/25 13:47 03/17/25 02:24 Diazepam Inj (*Crx) 10 Mg/2 Ml Syringe IV PUSH 5 mg Q8HR PRN Administration Muscle Spasticity Enoxaparin Sodium 40 mg 03/16/25 09:00 03/16/25 09:37 Enoxaparin 40 Mg/0.4 Ml Syringe SUB-Q Not Given DAILY SUREKHA Famotidine 40 mg 03/15/25 21:00 03/16/25 20:52 Famotidine 20 Mg Tablet PO 40 mg HS SUREKHA Administration Fentanyl Citrate 25 mcg 03/16/25 12:15 Fentanyl Citrate Inj (*Crx) 100 Mcg/2 Ml Vial IV PUSH Q2M PRN Pain Fluticasone Propionate 2 spray 03/15/25 09:00 03/16/25 09:40 Fluticasone Propionate 0.05% Na Spr 16 Gm Btl (*Bkc) NASAL 2 spray DAILY SUREKHA Administration Folic Acid 1 mg 03/15/25 09:00 03/16/25 17:47 Folic Acid 1 Mg Tablet PO 1 mg DAILY SUREKHA Administration Glucagon 1 mg 03/14/25 22:27 Glucagon For Inj 1 Mg Vial IM PRN PRN Hypoglycemia Protocol Glucose 15 gm 03/14/25 22:27 Glucose Oral Gel 15 Gm Of Glucse In 37.5 Gm Tube PO PRN PRN Hypoglycemia Protocol Guaifenesin/Dextromethorphan 1 tab 03/16/25 09:00 03/16/25 20:52 Guaifenesin 600 Mg/Dextromethorphan 30 Mg Sr Tab 12 Hr PO 1 tab Q12HR SUREKHA Administration Hydralazine HCl 20 mg 03/15/25 08:32 Hydralazine Hcl 20 Mg/Ml Vial IV PUSH Q6H PRN Hypertension Hydromorphone HCl 0.5 mg 03/14/25 22:25 03/15/25 06:28 Hydromorphone Hcl Inj (*Crx) 2 Mg/Ml Vial IV PUSH 0.5 mg Q4H PRN Administration Pain Rated 7-10 Dextrose 1,000 mls @ 100 mls/hr 03/14/25 22:27 Dextrose 5% 1,000 Ml IVPB PRN PRN Hypoglycemia Protocol Lactated Ringer's 1,000 mls @ 30 mls/hr 03/16/25 12:15 03/16/25 14:45 Lr - Lactated Ringers Iv IV CONT 30 mls/hr .Q24H SUREKHA Administration Cefazolin Sodium 1 gm in 50 mls @ 100 mls/hr 03/16/25 21:00 03/17/25 05:23 Ancef 1 Gm/Ns 50 Ml IVPB 03/17/25 13:29 Infused Q8H SUREKHA Infusion Insulin Aspart 0 units 03/15/25 21:00 03/16/25 21:08 Insulin Aspart (*Bkc) 100 Units/Ml SUB-Q Not Given 0800,1200,1700,2100 SUREKHA Insulin Glargine 40 units 03/15/25 09:00 03/16/25 21:08 Insulin Glargine (*Bkc) 100 Units/Ml SUB-Q 40 units Q12HR SUREKHA Administration Lisinopril 20 mg 03/15/25 09:00 03/16/25 17:47 Lisinopril 20 Mg Tablet PO 20 mg DAILY SUREHKA Administration Loratadine 10 mg 03/15/25 09:00 03/16/25 17:47 Loratadine 10 Mg Tablet PO 10 mg QAM SUREKHA Administration Lorazepam 2 mg 03/15/25 03:52 03/17/25 04:24 Lorazepam Inj (*Crx) 2 Mg/Ml Vial IV PUSH 2 mg Q4H PRN Administration WA 8-15 Miscellaneous Information 1 each 03/15/25 21:00 Pharmacist Communication Order XX 04/14/25 20:59 QID@0800,1200,1700,2100 SUREKHA Multivitamins Therapeutic 1 tablet 03/15/25 09:00 03/16/25 17:47 Multivitamins Therapeutic Tab (*Bkc) PO 1 tablet QAM SUREKHA Administration Nicotine 1 patch 03/15/25 03:52 Nicotine (*Pbkc) 21 Mg Patch TRANSDERM DAILY PRN Nicotine withdrawal Ondansetron HCl 4 mg 03/14/25 22:25 Ondansetron Inj 4 Mg/2 Ml Vial IV PUSH Q4H PRN Nausea Pantoprazole Sodium 40 mg 03/15/25 09:00 03/16/25 17:47 Pantoprazole 40 Mg Tablet PO 40 mg QAM SUREKHA Administration Polyethylene Glycol 17 gm 03/17/25 09:00 Polyethylene Glycol 3350 17 Gm Powd.Pack PO QAM SUREKHA Senna/Docusate Sodium 2 tab 03/16/25 17:00 03/16/25 17:47 Senna/Docusate Sodium Tablet PO 2 tab BID SUREKHA Administration Simvastatin 80 mg 03/15/25 21:00 03/16/25 20:51 Simvastatin 20 Mg Tablet PO 80 mg QHS SUREKHA Administration Thiamine HCl 100 mg 03/15/25 09:00 03/16/25 17:47 Thiamine Hcl 100 Mg Tablet PO 100 mg QAM SUREKHA Administration Radiology Results: ITS Impressions Tibia/Fibula X-Ray 03/14/25 18:52 IMPRESSION: Trimalleolar fracture/dislocation of the left ankle. Chest X-Ray 03/16/25 05:51 Impression: Clear lungs. Labs Labs: Laboratory Results - last 24 hr 03/14/25 03/16/25 03/16/25 20:37 08:26 08:58 WBC 13.8 H RBC 4.33 L Hgb 13.0 L Hct 39.1 L MCV 90.3 MCH 30.0 MCHC 33.2 RDW 12.0 Plt Count 317 MPV 8.1 Sodium 130 L Potassium 4.2 Chloride 95 L Carbon Dioxide 24 Anion Gap 11 BUN 6 L Creatinine 0.60 L Estim Creat Clear Calc 157 Estimated GFR > 60 Glucose 163 H POC Capillary Glucose 167 H Calcium 9.2 Magnesium 1.9 Total Bilirubin 0.7 AST 32 ALT 40 Alkaline Phosphatase 97 Total Protein 6.4 Albumin 4.3 Blood Type 03/16/25 03/16/25 03/16/25 11:34 12:07 14:50 WBC RBC Hgb Hct MCV MCH MCHC RDW Plt Count MPV Sodium Potassium Chloride Carbon Dioxide Anion Gap BUN Creatinine Estim Creat Clear Calc Estimated GFR Glucose POC Capillary Glucose 192 H 186 H 194 H Calcium Magnesium Total Bilirubin AST ALT Alkaline Phosphatase Total Protein Albumin Blood Type 03/16/25 03/16/25 03/17/25 16:28 20:59 05:49 WBC 17.2 H RBC 4.00 L Hgb 12.0 L Hct 36.1 L MCV 90.3 MCH 30.0 MCHC 33.2 RDW 11.8 Plt Count 315 MPV 8.4 Sodium 127 L Potassium 4.3 Chloride 94 L Carbon Dioxide 16 L Anion Gap 17 H BUN 5 L Creatinine 0.64 L Estim Creat Clear Calc 148 Estimated GFR > 60 Glucose 206 H POC Capillary Glucose 216 H 274 H Calcium 8.9 Magnesium 1.8 Total Bilirubin 0.7 AST 30 ALT 32 Alkaline Phosphatase 92 Total Protein 6.3 Albumin 4.3 Blood Type 03/17/25 07:45 WBC RBC Hgb Hct MCV MCH MCHC RDW Plt Count MPV Sodium Potassium Chloride Carbon Dioxide Anion Gap BUN Creatinine Estim Creat Clear Calc Estimated GFR Glucose POC Capillary Glucose 196 H Calcium Magnesium Total Bilirubin AST ALT Alkaline Phosphatase Total Protein Albumin Blood Type
[2025-03-17] MEDS: SENNA/DOCUSATE SODIUM TABLET 2 TAB PO ×2 (08:35→16:58)
[2025-03-17] MEDS: FOLIC ACID 1 MG TABLET PO (08:35)
[2025-03-17] MEDS: FLUTICASONE PROPIONATE 0.05% NA SPR 16 GM BTL (*BKC) 2 SPRAY NASAL (08:35)
[2025-03-17] MEDS: guaiFENesin 600 MG/DEXTROMETHORPHAN 30 MG SR TAB 12 HR 1 TAB PO ×2 (08:36→21:06)
[2025-03-17] MEDS: THIAMINE HCL 100 MG TABLET PO (08:36)
[2025-03-17] MEDS: MULTIVITAMINS THERAPEUTIC TAB (*BKC) 1 TABLET PO (08:36)
[2025-03-17] MEDS: PANTOPRAZOLE 40 MG TABLET PO (08:36)
[2025-03-17] MEDS: LORATADINE 10 MG TABLET PO (08:36)
[2025-03-17] MEDS: INSULIN GLARGINE (*BKC) 100 UNITS/ML 40 UNITS SUB-Q ×2 (08:37→21:07)
[2025-03-17] MEDS: INSULIN ASPART (*BKC) 100 UNITS/ML SUB-Q ×3 (08:49→16:58)
--- NOTE | 2025-03-17 10:51 | P.PNIM_ITS ---
Progress Note: A&P Assessment and Plan (1) Trimalleolar fracture of left ankle: Qualifiers: Encounter type: initial encounter Fracture type: closed Qualified Code(s): S82.852A - Displaced trimalleolar fracture of left lower leg, initial encounter for closed fracture Code(s): S82.852A - Displaced trimalleolar fracture of left lower leg, initial encounter for closed fracture Status: Acute Assessment and Plan: Patient has had a trimalleolar fracture of the left ankle. Orthopedic surgery has been consulted. Patient was NPO at midnight for anticipation of possible surgical procedure. * Will keep extremity elevated. * Will provide ice pack. * Surgery planned 03/16/2025 Non-weight bearing post-op * pain management * PT/OT evaluation (2) ETOH abuse: Code(s): F10.10 - Alcohol abuse, uncomplicated Status: Acute Assessment and Plan: patient has history alcohol abuse reported he was drinking earlier prior to ar rival and fall states he has only had mild withdrawal symptoms no seizure-like activities * IV fluids * Thiamine, folic acid, and multi-vitamin * PPI daily * librium * Ativan PRN for seizure activity * CIWA daily * Monitor and replenish electrolytes as needed * Seizure precautions if indicated (3) Hyponatremia: Code(s): E87.1 - Hypo-osmolality and hyponatremia Status: Acute Assessment and Plan: hyponatremia likely secondary to patient's dehydration and alcohol intoxication * continue with IV fluids improving sodium 130 * trend (4) Type 1 diabetes mellitus: Qualifiers: Diabetes mellitus complication status: with kidney complications Diabetes mellitus complication detail: with diabetic microalbuminuria Qualified Code(s): E10.29 - Type 1 diabetes mellitus with other diabetic kidney complication; R80.9 - Proteinuria, unspecified Code(s): E10.9 - Type 1 diabetes mellitus without complications Status: Acute Assessment and Plan: patient is a type 1 diabetic * ACCU check ACHS * resume patient's long insulin and sliding scale insulin * diabetic diet * hypoglycemic protocol (5) Continuous tobacco abuse: Code(s): Z72.0 - Tobacco use Status: Acute Assessment and Plan: * nicotine patch p.r.n. * remove at night * encouraged smoking cessation (6) Essential hypertension: Code(s): I10 - Essential (primary) hypertension Status: Acute Assessment and Plan: mildly elevated BP POA * resume lisinopril * added hydralazine IV push for systolics over 160 * monitor BP per unit protocol Plan patient is 44 y/o male with history of alcohol abuse, s/p fall and fracture of left ankle, had ORIF on 03/16/25 POD# 1, patient stats pain is persisting, seen by surgery service recommended NWB leg leg, continue PT/O, may discharge possibly today, patient is on CIWA protocol and does not show any sign or symptoms of withdrawal, will follow up with human services care specialist for discharge plan. Code status: Full code per patient DVT prophylaxis: Lovenox Stress ulcer prophylaxis: Protonix 40 daily PT/OT notes: PT/OT post op Disposition: patient admitted to the medical unit plan for surgical repair of left ankle fracture today 03/16/2025. patient is currently nonweightbearing may need rehab placement PT/OT evaluation pending. Subjective Date/time seen: 03/17/25 10:51 Interval history: patient is 44 y/o male with history of alcohol abuse, s/p fall and fracture of left ankle, had ORIF on 03/16/25 POD# 1, patient stats pain is persisting, seen by surgery service recommended NWB leg leg, continue PT/O, may discharge possibly today, patient is on CIWA protocol and does not show any sign or symptoms of withdrawal, will follow up with human services care specialist for discharge plan. Review of Systems Review of Systems: 12 systems were reviewed with pertinent positives and negatives per HPI. Except as documented in the HPI, all other systems were reviewed and are negative. All systems reviewed & are unremarkable except as noted in HPI and below Exam Narrative: Patient is comfortable, NAD HEENT: eyes are clear and none icteric LUNGS:CTA HEART: RR S1S2 ABD: BS+, Soft and nontender Lower extremities: no edema, left lower extremities in surgical cast. SKIN: nonjaundiced Neuro: grossly intact. Objective Data Vital Signs Vital Signs: Vital Signs - 24 hr 03/16/25 12:29 03/16/25 14:45 03/16/25 15:00 Temperature 37.2 C 36.2 C L Pulse Rate 103 H 88 91 Respiratory Rate 24 H 22 H Blood Pressure 153/58 H 110/54 L 102/58 L Pulse Oximetry 97 99 99 Oxygen Delivery Room Air Room Air Simple Face Mask Oxygen Flow Rate 8 03/16/25 15:15 03/16/25 15:30 03/16/25 15:45 Temperature 37.2 C Pulse Rate 95 87 94 Respiratory Rate 18 15 20 Blood Pressure 109/59 L 116/62 117/59 L Pulse Oximetry 99 98 94 Oxygen Delivery Simple Face Mask Room Air Room Air Oxygen Flow Rate 8 03/16/25 16:00 03/16/25 16:00 03/16/25 16:15 Temperature Pulse Rate 92 90 Respiratory Rate 18 18 Blood Pressure 113/64 124/76 111/60 Pulse Oximetry 94 94 Oxygen Delivery Room Air Room Air Oxygen Flow Rate 03/16/25 16:30 03/16/25 16:45 03/16/25 17:15 Temperature 37.1 C 36.3 C L 36.8 C Pulse Rate 93 92 96 Respiratory Rate 16 16 14 Blood Pressure 127/60 125/61 130/59 L Pulse Oximetry 94 95 95 Oxygen Delivery Oxygen Flow Rate 03/16/25 18:15 03/16/25 20:00 03/16/25 20:00 Temperature 36.5 C Pulse Rate 99 117 H Respiratory Rate 16 18 Blood Pressure 133/60 131/64 Pulse Oximetry 96 94 Oxygen Delivery Room Air Oxygen Flow Rate 03/16/25 22:03 03/17/25 00:00 03/17/25 02:03 Temperature 36.6 C 36.4 C Pulse Rate 117 H 99 Respiratory Rate 18 18 Blood Pressure 131/64 131/64 129/63 Pulse Oximetry 94 96 Oxygen Delivery Oxygen Flow Rate 03/17/25 03:14 03/17/25 06:03 03/17/25 08:00 Temperature 37.1 C Pulse Rate 95 Respiratory Rate 18 Blood Pressure 129/63 139/66 Pulse Oximetry 96 96 Oxygen Delivery Room Air Oxygen Flow Rate Intake/Output Intake/Output: Intake & Output 03/14/25 03/15/25 03/16/25 03/17/25 23:59 23:59 23:59 23:59 Intake Total 3773.3 2616.7 1820 Output Total 750 7400 4400 Balance 3023.3 -4783.3 -2580 Meds/Results Medications: Active Medications Generic Name Dose Route Start Last Admin Trade Name Freq PRN Reason Stop Dose Admin Acetaminophen 650 mg 03/14/25 22:25 Acetaminophen 325 Mg Tablet PO Q4H PRN Mild Pain (1-3) or Fever Hydrocodone Bitart/Acetaminophen 1 tab 03/14/25 22:25 03/17/25 08:49 Hydrocodone/Acetaminophen (*Crx) 5-325 Mg Tablet PO 1 tab Q4H PRN Administration Pain Rated 4-6 Albuterol/Ipratropium 3 ml 03/16/25 07:55 03/16/25 11:06 Ipratropium 0.5 Mg/Albuterol Sulfate 2.5 Mg Ampul.Neb 3 Ml INHALATION 3 ml Q6HRT PRN Administration sob Chlordiazepoxide HCl 50 mg 03/16/25 14:00 03/17/25 05:22 Chlordiazepoxide (*Crx) 25 Mg Capsule PO 50 mg Q8HR SUREKHA Administration Dextrose 12.5 gm 03/14/25 22:27 Dextrose 50% 25 Gm/50 Ml Syringe IV PUSH PRN PRN Hypoglycemia Protocol Diazepam 5 mg 03/15/25 13:47 03/17/25 02:24 Diazepam Inj (*Crx) 10 Mg/2 Ml Syringe IV PUSH 5 mg Q8HR PRN Administration Muscle Spasticity Enoxaparin Sodium 40 mg 03/16/25 09:00 03/17/25 08:44 Enoxaparin 40 Mg/0.4 Ml Syringe SUB-Q Not Given DAILY SUREKHA Famotidine 40 mg 03/15/25 21:00 03/16/25 20:52 Famotidine 20 Mg Tablet PO 40 mg HS SUREKHA Administration Fentanyl Citrate 25 mcg 03/16/25 12:15 Fentanyl Citrate Inj (*Crx) 100 Mcg/2 Ml Vial IV PUSH Q2M PRN Pain Fluticasone Propionate 2 spray 03/15/25 09:00 03/17/25 08:35 Fluticasone Propionate 0.05% Na Spr 16 Gm Btl (*Bkc) NASAL 2 spray DAILY SUREKHA Administration Folic Acid 1 mg 03/15/25 09:00 03/17/25 08:35 Folic Acid 1 Mg Tablet PO 1 mg DAILY SUREKHA Administration Glucagon 1 mg 03/14/25 22:27 Glucagon For Inj 1 Mg Vial IM PRN PRN Hypoglycemia Protocol Glucose 15 gm 03/14/25 22:27 Glucose Oral Gel 15 Gm Of Glucse In 37.5 Gm Tube PO PRN PRN Hypoglycemia Protocol Guaifenesin/Dextromethorphan 1 tab 03/16/25 09:00 03/17/25 08:36 Guaifenesin 600 Mg/Dextromethorphan 30 Mg Sr Tab 12 Hr PO 1 tab Q12HR SUREKHA Administration Hydralazine HCl 20 mg 03/15/25 08:32 Hydralazine Hcl 20 Mg/Ml Vial IV PUSH Q6H PRN Hypertension Hydromorphone HCl 0.5 mg 03/14/25 22:25 03/15/25 06:28 Hydromorphone Hcl Inj (*Crx) 2 Mg/Ml Vial IV PUSH 0.5 mg Q4H PRN Administration Pain Rated 7-10 Dextrose 1,000 mls @ 100 mls/hr 03/14/25 22:27 Dextrose 5% 1,000 Ml IVPB PRN PRN Hypoglycemia Protocol Lactated Ringer's 1,000 mls @ 30 mls/hr 03/16/25 12:15 03/16/25 14:45 Lr - Lactated Ringers Iv IV CONT 30 mls/hr .Q24H SUREKHA Administration Cefazolin Sodium 1 gm in 50 mls @ 100 mls/hr 03/16/25 21:00 03/17/25 05:23 Ancef 1 Gm/Ns 50 Ml IVPB 03/17/25 13:29 Infused Q8H SUREKHA Infusion Insulin Aspart 0 units 03/15/25 21:00 03/17/25 08:49 Insulin Aspart (*Bkc) 100 Units/Ml SUB-Q 5 units 0800,1200,1700,2100 SUREKHA Administration Insulin Glargine 40 units 03/15/25 09:00 03/17/25 08:37 Insulin Glargine (*Bkc) 100 Units/Ml SUB-Q 40 units Q12HR SUREKHA Administration Lisinopril 20 mg 03/15/25 09:00 03/17/25 08:36 Lisinopril 20 Mg Tablet PO 20 mg DAILY SUREKHA Administration Loratadine 10 mg 03/15/25 09:00 03/17/25 08:36 Loratadine 10 Mg Tablet PO 10 mg QAM SUREKHA Administration Lorazepam 2 mg 03/15/25 03:52 03/17/25 04:24 Lorazepam Inj (*Crx) 2 Mg/Ml Vial IV PUSH 2 mg Q4H PRN Administration CIWA 8-15 Miscellaneous Information 1 each 03/15/25 21:00 Pharmacist Communication Order XX 04/14/25 20:59 QID@0800,1200,1700,2100 [facility] Multivitamins Therapeutic 1 tablet 03/15/25 09:00 03/17/25 08:36 Multivitamins Therapeutic Tab (*Bkc) PO 1 tablet QAM SUREKHA Administration Ondansetron HCl 4 mg 03/14/25 22:25 Ondansetron Inj 4 Mg/2 Ml Vial IV PUSH Q4H PRN Nausea Pantoprazole Sodium 40 mg 03/15/25 09:00 03/17/25 08:36 Pantoprazole 40 Mg Tablet PO 40 mg QAM SUREKHA Administration Polyethylene Glycol 17 gm 03/17/25 09:00 03/17/25 08:38 Polyethylene Glycol 3350 17 Gm Powd.Pack PO 17 gm QAM SUREKHA Administration Senna/Docusate Sodium 2 tab 03/16/25 17:00 03/17/25 08:35 Senna/Docusate Sodium Tablet PO 2 tab BID SUREKHA Administration Simvastatin 80 mg 03/15/25 21:00 03/16/25 20:51 Simvastatin 20 Mg Tablet PO 80 mg QHS SUREKHA Administration Thiamine HCl 100 mg 03/15/25 09:00 03/17/25 08:36 Thiamine Hcl 100 Mg Tablet PO 100 mg QAM SUREKHA Administration Radiology Results: ITS Impressions Tibia/Fibula X-Ray 03/14/25 18:52 IMPRESSION: Trimalleolar fracture/dislocation of the left ankle. Chest X-Ray 03/16/25 05:51 Impression: Clear lungs. Labs Labs: Laboratory Results - last 24 hr 03/14/25 03/16/25 03/16/25 20:37 11:34 12:07 WBC RBC Hgb Hct MCV MCH MCHC RDW Plt Count MPV Sodium Potassium Chloride Carbon Dioxide Anion Gap BUN Creatinine Estim Creat Clear Calc Estimated GFR Glucose POC Capillary Glucose 192 H 186 H Calcium Magnesium Total Bilirubin AST ALT Alkaline Phosphatase Total Protein Albumin Blood Type 03/16/25 03/16/25 03/16/25 14:50 16:28 20:59 WBC RBC Hgb Hct MCV MCH MCHC RDW Plt Count MPV Sodium Potassium Chloride Carbon Dioxide Anion Gap BUN Creatinine Estim Creat Clear Calc Estimated GFR Glucose POC Capillary Glucose 194 H 216 H 274 H Calcium Magnesium Total Bilirubin AST ALT Alkaline Phosphatase Total Protein Albumin Blood Type 03/17/25 03/17/25 05:49 07:45 WBC 17.2 H RBC 4.00 L Hgb 12.0 L Hct 36.1 L MCV 90.3 MCH 30.0 MCHC 33.2 RDW 11.8 Plt Count 315 MPV 8.4 Sodium 127 L Potassium 4.3 Chloride 94 L Carbon Dioxide 16 L Anion Gap 17 H BUN 5 L Creatinine 0.64 L Estim Creat Clear Calc 148 Estimated GFR > 60 Glucose 206 H POC Capillary Glucose 196 H Calcium 8.9 Magnesium 1.8 Total Bilirubin 0.7 AST 30 ALT 32 Alkaline Phosphatase 92 Total Protein 6.3 Albumin 4.3 Blood Type Quality VTE Prophylaxis VTE prophylaxis: pharmacologic ordered (Lovenox 40 mg subQ daily.)
[2025-03-17] MEDS: FAMOTIDINE 20 MG TABLET 40 MG PO (21:07)
[2025-03-17] MEDS: SIMVASTATIN 20 MG TABLET 80 MG PO (21:07)
[2025-03-18] VITALS (7 sets, daily range): BP systolic 121–150; BP diastolic 64–72; PULSE 89–114; RESP 16–18; TEMP 36.3–36.7; O2SAT 97–98
[2025-03-18] MEDS: LORazepam INJ (*CRX) 2 MG/ML VIAL IV PUSH ×2 (01:15→07:30)
[2025-03-18] MEDS: HYDROcodone/acetaminophen (*CRX) 5-325 MG TABLET 1 TAB PO (03:20)
[2025-03-18] MEDS: chlordiazePOXIDE (*CRX) 25 MG CAPSULE 50 MG PO ×3 (05:09→22:18)
[2025-03-18 06:12] LABS: Hematocrit 35.1 % (42.0-52.0); Hemoglobin 11.8 g/dL (14.0-18.0); Mean Corpuscular HGB Conc 33.6 g/dl (32-36); Mean Corpuscular Hemoglobin 30.1 pg (26-34); Mean Corpuscular Volume 89.5 fl (80-100); Platelet Count Result 325 k/mm3 (150-375); Red Blood Count 3.92 M/mm3 (4.6-6.20); White Blood Count 14.2 K/mm3 (4.5-10.0)
[2025-03-18 06:33] LABS: Alanine Aminotransferase 26 U/L (6-50); Albumin Level 4.1 g/dL (3.5-5.1); Alkaline Phosphatase 87 U/L (38-126); Anion Gap 15 mmol/L (4-12); Aspartate Amino Transferase 28 U/L (17-59); Bilirubin,Total 0.6 mg/dL (0.2-1.3); Blood Urea Nitrogen 4 mg/dL (9-20); Calcium 9.0 mg/dL (8.4-10.2); Carbon Dioxide 16 mmol/L (22-30); Chloride 96 mmol/L (98-107); Estimated CRCL calculation 155 ml/min; Estimated Glomerular Filt Rate > 60; Glucose 209 mg/dL (65-110); Magnesium 1.9 mg/dL (1.6-2.3); Potassium 4.4 mmol/L (3.4-5.0); Sodium 127 mmol/L (137-145); Total Protein 6.3 g/dL (6.3-8.2)
[2025-03-18] MEDS: THIAMINE HCL 100 MG TABLET PO (08:03)
[2025-03-18] MEDS: guaiFENesin 600 MG/DEXTROMETHORPHAN 30 MG SR TAB 12 HR 1 TAB PO ×2 (08:03→22:17)
[2025-03-18] MEDS: PANTOPRAZOLE 40 MG TABLET PO (08:03)
[2025-03-18] MEDS: FOLIC ACID 1 MG TABLET PO (08:03)
[2025-03-18] MEDS: LORATADINE 10 MG TABLET PO (08:03)
[2025-03-18] MEDS: MULTIVITAMINS THERAPEUTIC TAB (*BKC) 1 TABLET PO (08:03)
[2025-03-18] MEDS: SENNA/DOCUSATE SODIUM TABLET 2 TAB PO ×2 (08:04→16:20)
[2025-03-18] MEDS: INSULIN GLARGINE (*BKC) 100 UNITS/ML 40 UNITS SUB-Q ×2 (08:05→22:00)
[2025-03-18] MEDS: FLUTICASONE PROPIONATE 0.05% NA SPR 16 GM BTL (*BKC) 2 SPRAY NASAL (08:06)
[2025-03-18] MEDS: INSULIN ASPART (*BKC) 100 UNITS/ML SUB-Q ×4 (08:08→21:55)
--- NOTE | 2025-03-18 14:08 | P.PNIM_ITS ---
Progress Note: A&P Assessment and Plan (1) Trimalleolar fracture of left ankle: Qualifiers: Encounter type: initial encounter Fracture type: closed Qualified Code(s): S82.852A - Displaced trimalleolar fracture of left lower leg, initial encounter for closed fracture Code(s): S82.852A - Displaced trimalleolar fracture of left lower leg, initial encounter for closed fracture Status: Acute Assessment and Plan: Patient has had a trimalleolar fracture of the left ankle. Orthopedic surgery has been consulted. Patient was NPO at midnight for anticipation of possible surgical procedure. * Will keep extremity elevated. * Will provide ice pack. * Surgery planned 03/16/2025 Non-weight bearing post-op * pain management * PT/OT evaluation (2) ETOH abuse: Code(s): F10.10 - Alcohol abuse, uncomplicated Status: Acute Assessment and Plan: patient has history alcohol abuse reported he was drinking earlier prior to ar rival and fall states he has only had mild withdrawal symptoms no seizure-like activities * IV fluids * Thiamine, folic acid, and multi-vitamin * PPI daily * librium * Ativan PRN for seizure activity * CIWA daily * Monitor and replenish electrolytes as needed * Seizure precautions if indicated (3) Hyponatremia: Code(s): E87.1 - Hypo-osmolality and hyponatremia Status: Acute Assessment and Plan: hyponatremia likely secondary to patient's dehydration and alcohol intoxication * continue with IV fluids improving sodium 130 * trend (4) Type 1 diabetes mellitus: Qualifiers: Diabetes mellitus complication status: with kidney complications Diabetes mellitus complication detail: with diabetic microalbuminuria Qualified Code(s): E10.29 - Type 1 diabetes mellitus with other diabetic kidney complication; R80.9 - Proteinuria, unspecified Code(s): E10.9 - Type 1 diabetes mellitus without complications Status: Acute Assessment and Plan: patient is a type 1 diabetic * ACCU check ACHS * resume patient's long insulin and sliding scale insulin * diabetic diet * hypoglycemic protocol (5) Continuous tobacco abuse: Code(s): Z72.0 - Tobacco use Status: Acute Assessment and Plan: * nicotine patch p.r.n. * remove at night * encouraged smoking cessation (6) Essential hypertension: Code(s): I10 - Essential (primary) hypertension Status: Acute Assessment and Plan: mildly elevated BP POA * resume lisinopril * added hydralazine IV push for systolics over 160 * monitor BP per unit protocol Plan patient is 44 y/o male with history of alcohol abuse, s/p fall and fracture of left ankle, had ORIF on 03/16/25 POD# 1, patient stats pain is persisting, seen by surgery service recommended NWB leg leg, continue PT/O, may discharge possibly today, patient is on CIWA protocol and does not show any sign or symptoms of withdrawal, on 03/17 patient had fall while in the bathroom there was no head injury and patient did not have complaints of pain to further evaluate, patient had CT scan of C-spine, there no acute injury, CT scan of thoracic and lambar spine is pending, patient last alcohol drink was on SundayMarch 13, it is now 5days since last drink, patient is most likely out [facility], will follow up with nonfarm animal caretaker for discharge plan. Code status: Full code per patient DVT prophylaxis: Lovenox Stress ulcer prophylaxis: Protonix 40 daily PT/OT notes: PT/OT post op Disposition: patient admitted to the medical unit plan for surgical repair of left ankle fracture today 03/16/2025. patient is currently nonweightbearing may need rehab placement PT/OT evaluation pending. Subjective Date/time seen: 03/18/25 14:08 Interval history: patient is 44 y/o male with history of alcohol abuse, s/p fall and fracture of left ankle, had ORIF on 03/16/25 POD# 1, patient stats pain is persisting, seen by surgery service recommended NWB leg leg, continue PT/O, may discharge possibly today, patient is on CIWA protocol and does not show any sign or symptoms of withdrawal, on 03/17 patient had fall while in the bathroom there was no head injury and patient did not have complaints of pain to further evaluate, patient had CT scan of C-spine, there no acute injury, CT scan of thoracic and lambar spine is pending, patient last alcohol drink was on SundayMarch 13, it is now 5days since last drink, patient is most likely out developing DT, will follow up with nonfarm animal caretaker for discharge plan. Review of Systems Review of Systems: 12 systems were reviewed with pertinent positives and negatives per HPI. Except as documented in the HPI, all other systems were reviewed and are negative. All systems reviewed & are unremarkable except as noted in HPI and below Exam Narrative: Patient is comfortable, NAD HEENT: eyes are clear and none icteric LUNGS:CTA HEART: RR S1S2 ABD: BS+, Soft and nontender Lower extremities: no edema, left lower extremities in surgical cast. SKIN: nonjaundiced Neuro: grossly intact. Objective Data Vital Signs Vital Signs: Vital Signs - 24 hr 03/17/25 16:00 03/17/25 18:03 03/17/25 20:00 Temperature 37.3 C Pulse Rate 110 H Pulse Rate [Left Pedal (Dorsalis Pedis) Palpation] Respiratory Rate 18 Blood Pressure 134/62 146/63 H Pulse Oximetry 97 Oxygen Delivery Room Air 03/17/25 21:22 03/18/25 06:00 03/18/25 07:27 Temperature 37.1 C 36.6 C Pulse Rate 108 H 89 Pulse Rate [Left Pedal (Dorsalis Pedis) Palpation] 94 Respiratory Rate 18 18 Blood Pressure 141/67 H 146/72 H 126/68 Pulse Oximetry 98 98 Oxygen Delivery 03/18/25 08:00 03/18/25 10:36 03/18/25 13:45 Temperature 36.3 C L Pulse Rate 102 H Pulse Rate [Left Pedal (Dorsalis Pedis) Palpation] Respiratory Rate 18 Blood Pressure 121/64 Pulse Oximetry 98 97 98 Oxygen Delivery Room Air Room Air Intake/Output Intake/Output: Intake & Output 03/15/25 03/16/25 03/17/25 03/18/25 23:59 23:59 23:59 23:59 Intake Total 3773.3 2616.7 2610 2288 Output Total 750 7400 4400 2500 Balance 3023.3 -4783.3 -1790 -212 Meds/Results Medications: Active Medications Generic Name Dose Route Start Last Admin Trade Name Freq PRN Reason Stop Dose Admin Acetaminophen 650 mg 03/14/25 22:25 Acetaminophen 325 Mg Tablet PO Q4H PRN Mild Pain (1-3) or Fever Hydrocodone Bitart/Acetaminophen 1 tab 03/14/25 22:25 03/18/25 03:20 Hydrocodone/Acetaminophen (*Crx) 5-325 Mg Tablet PO 1 tab Q4H PRN Administration Pain Rated 4-6 Albuterol/Ipratropium 3 ml 03/16/25 07:55 03/16/25 11:06 Ipratropium 0.5 Mg/Albuterol Sulfate 2.5 Mg Ampul.Neb 3 Ml INHALATION 3 ml Q6HRT PRN Administration sob Chlordiazepoxide HCl 50 mg 03/16/25 14:00 03/18/25 13:28 Chlordiazepoxide (*Crx) 25 Mg Capsule PO 50 mg Q8HR SUREKHA Administration Dextrose 12.5 gm 03/14/25 22:27 Dextrose 50% 25 Gm/50 Ml Syringe IV PUSH PRN PRN Hypoglycemia Protocol Diazepam 5 mg 03/15/25 13:47 03/17/25 21:07 Diazepam Inj (*Crx) 10 Mg/2 Ml Syringe IV PUSH 5 mg Q8HR PRN Administration Muscle Spasticity Enoxaparin Sodium 40 mg 03/16/25 09:00 03/18/25 08:01 Enoxaparin 40 Mg/0.4 Ml Syringe SUB-Q Not Given DAILY SUREKHA Famotidine 40 mg 03/15/25 21:00 03/17/25 21:07 Famotidine 20 Mg Tablet PO 40 mg HS SUREKHA Administration Fentanyl Citrate 25 mcg 03/16/25 12:15 Fentanyl Citrate Inj (*Crx) 100 Mcg/2 Ml Vial IV PUSH Q2M PRN Pain Fluticasone Propionate 2 spray 03/15/25 09:00 03/18/25 08:06 Fluticasone Propionate 0.05% Na Spr 16 Gm Btl (*Bkc) NASAL 2 spray DAILY SUREKHA Administration Folic Acid 1 mg 03/15/25 09:00 03/18/25 08:03 Folic Acid 1 Mg Tablet PO 1 mg DAILY SUREKHA Administration Glucagon 1 mg 03/14/25 22:27 Glucagon For Inj 1 Mg Vial IM PRN PRN Hypoglycemia Protocol Glucose 15 gm 03/14/25 22:27 Glucose Oral Gel 15 Gm Of Glucse In 37.5 Gm Tube PO PRN PRN Hypoglycemia Protocol Guaifenesin/Dextromethorphan 1 tab 03/16/25 09:00 03/18/25 08:03 Guaifenesin 600 Mg/Dextromethorphan 30 Mg Sr Tab 12 Hr PO 1 tab Q12HR SUREKHA Administration Hydralazine HCl 20 mg 03/15/25 08:32 Hydralazine Hcl 20 Mg/Ml Vial IV PUSH Q6H PRN Hypertension Hydromorphone HCl 0.5 mg 03/14/25 22:25 03/15/25 06:28 Hydromorphone Hcl Inj (*Crx) 2 Mg/Ml Vial IV PUSH 0.5 mg Q4H PRN Administration Pain Rated 7-10 Dextrose 1,000 mls @ 100 mls/hr 03/14/25 22:27 Dextrose 5% 1,000 Ml IVPB PRN PRN Hypoglycemia Protocol Lactated Ringer's 1,000 mls @ 30 mls/hr 03/16/25 12:15 03/18/25 08:06 Lr - Lactated Ringers Iv IV CONT Not Given .Q24H SUREKHA Insulin Aspart 0 units 03/15/25 21:00 03/18/25 12:15 Insulin Aspart (*Bkc) 100 Units/Ml SUB-Q 18 units 0800,1200,1700,2100 SUREKHA Administration Insulin Glargine 40 units 03/15/25 09:00 03/18/25 08:05 Insulin Glargine (*Bkc) 100 Units/Ml SUB-Q 40 units Q12HR SUREKHA Administration Lisinopril 20 mg 03/15/25 09:00 03/18/25 08:03 Lisinopril 20 Mg Tablet PO 20 mg DAILY SUREKHA Administration Loratadine 10 mg 03/15/25 09:00 03/18/25 08:03 Loratadine 10 Mg Tablet PO 10 mg QAM SUREKHA Administration Lorazepam 2 mg 03/15/25 03:52 03/18/25 07:30 Lorazepam Inj (*Crx) 2 Mg/Ml Vial IV PUSH 2 mg Q4H PRN Administration CIWA 8-15 Miscellaneous Information 1 each 03/15/25 21:00 Pharmacist Communication Order XX 04/14/25 20:59 QID@0800,1200,1700,2100 SUREKHA Multivitamins Therapeutic 1 tablet 03/15/25 09:00 03/18/25 08:03 Multivitamins Therapeutic Tab (*Bkc) PO 1 tablet QAM SUREKHA Administration Ondansetron HCl 4 mg 03/14/25 22:25 Ondansetron Inj 4 Mg/2 Ml Vial IV PUSH Q4H PRN Nausea Pantoprazole Sodium 40 mg 03/15/25 09:00 03/18/25 08:03 Pantoprazole 40 Mg Tablet PO 40 mg QAM SUREKHA Administration Polyethylene Glycol 17 gm 03/17/25 09:00 03/18/25 08:03 Polyethylene Glycol 3350 17 Gm Powd.Pack PO 17 gm QAM SUREKHA Administration Senna/Docusate Sodium 2 tab 03/16/25 17:00 03/18/25 08:04 Senna/Docusate Sodium Tablet PO 2 tab BID SUREKHA Administration Simvastatin 80 mg 03/15/25 21:00 03/17/25 21:07 Simvastatin 20 Mg Tablet PO 80 mg QHS SUREKHA Administration Thiamine HCl 100 mg 03/15/25 09:00 03/18/25 08:03 Thiamine Hcl 100 Mg Tablet PO 100 mg QAM SUREKHA Administration Radiology Results: ITS Impressions Tibia/Fibula X-Ray 03/14/25 18:52 IMPRESSION: Trimalleolar fracture/dislocation of the left ankle. Chest X-Ray 03/16/25 05:51 Impression: Clear lungs. Cervical Spine CT 03/18/25 09:28 IMPRESSION: 1. 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 No acute osseous abnormality. Labs Labs: Laboratory Results - last 24 hr 03/17/25 03/17/25 03/18/25 16:30 20:37 05:44 WBC 14.2 H RBC 3.92 L Hgb 11.8 L Hct 35.1 L MCV 89.5 MCH 30.1 MCHC 33.6 RDW 11.7 Plt Count 325 MPV 8.5 Sodium 127 L Potassium 4.4 Chloride 96 L Carbon Dioxide 16 L Anion Gap 15 H BUN 4 L Creatinine 0.61 L Estim Creat Clear Calc 155 Estimated GFR > 60 Glucose 209 H POC Capillary Glucose 260 H 235 H Calcium 9.0 Magnesium 1.9 Total Bilirubin 0.6 AST 28 ALT 26 Alkaline Phosphatase 87 Total Protein 6.3 Albumin 4.1 03/18/25 03/18/25 03/18/25 07:54 11:18 12:09 WBC RBC Hgb Hct MCV MCH MCHC RDW Plt Count MPV Sodium Potassium Chloride Carbon Dioxide Anion Gap BUN Creatinine Estim Creat Clear Calc Estimated GFR Glucose POC Capillary Glucose 222 H 353 H 326 H Calcium Magnesium Total Bilirubin AST ALT Alkaline Phosphatase Total Protein Albumin Quality VTE Prophylaxis VTE prophylaxis: pharmacologic ordered (Lovenox 40 mg subQ daily.)
--- NOTE | 2025-03-18 15:14 | PC.NURSE ---
Dr Duffy notified of lumbar ct results that showed possible pneumonia.
[2025-03-18] MEDS: cefTRIAXone 1 GM in SODIUM CHLORIDE 0.9% IV 50 ML 100 ML IVPB (17:16)
[2025-03-18] MEDS: FAMOTIDINE 20 MG TABLET 40 MG PO (22:18)
[2025-03-18] MEDS: SIMVASTATIN 20 MG TABLET 80 MG PO (22:18)
[2025-03-19] VITALS: PULSE 109
[2025-03-19 04:00] VITALS: PULSE 93
[2025-03-19 04:27] VITALS: BP 143/70; PULSE 101; RESP 18; TEMP 36.1; O2SAT 96
[2025-03-19] MEDS: HYDROmorphone HCL INJ (*CRX) 2 MG/ML VIAL 0.5 MG IV PUSH ×2 (04:32→22:57)
[2025-03-19 06:37] LABS: Hematocrit 35.8 % (42.0-52.0); Hemoglobin 11.9 g/dL (14.0-18.0); Mean Corpuscular HGB Conc 33.2 g/dl (32-36); Mean Corpuscular Hemoglobin 29.8 pg (26-34); Mean Corpuscular Volume 89.7 fl (80-100); Platelet Count Result 355 k/mm3 (150-375); Red Blood Count 3.99 M/mm3 (4.6-6.20); White Blood Count 14.0 K/mm3 (4.5-10.0)
--- NOTE | 2025-03-19 06:56 | P.PNIM_ITS ---
Progress Note: A&P Assessment and Plan (1) Trimalleolar fracture of left ankle: Qualifiers: Encounter type: initial encounter Fracture type: closed Qualified Code(s): S82.852A - Displaced trimalleolar fracture of left lower leg, initial encounter for closed fracture Code(s): S82.852A - Displaced trimalleolar fracture of left lower leg, initial encounter for closed fracture Status: Acute Assessment and Plan: Ankle and Tibia/fibula XR: Trimalleolar fracture/dislocation of the left ankle Reduced in the ED, post reduction XR showed improved alignment of the tibiotalar dislocation, with residual lateral subluxation of the talus. Improved alignment of the trimalleolar fractures with 5 mm persistent lateral displacement of the medial malleolus and persistent 5 mm lateral and 6 mm posterior displacement of the lateral malleolus. Analgesics DVT ppx with lovenox PT/OT recommending SNF vs home health non weight bearing to left lower extremity per ortho recommendations Orthopedic surgery has been consulted s/p ORIF LT ankle trimalleolar with fixation medial and lateral mal fxs on 03/[address] Lara (2) Pneumonia: Code(s): J18.9 - Pneumonia, unspecified organism Status: Acute Assessment and Plan: T/L spine CT: Prominent airspace opacity bilateral lower lobes consistent with aspiration and/or pneumonia. Given elevated white count and development of cough patient started on pneumonia treatment - antibiotics: rocephin and flagyl started on 03/18 - Viral PCR: negative for Flu/COVID/RSV - given aspiration concern speech therapy consulted for bedside swallow study. No concerns per speech therapy. - no supplemental O2 requirement - Monitor vital signs, I&Os, neuro status and patient is a fall risk - Follow WBC, serum electrolytes, temperature curves and cultures (3) ETOH abuse: Code(s): F10.10 - Alcohol abuse, uncomplicated Status: Acute Assessment and Plan: Patient has history alcohol abuse reported he was drinking prior to arrival. Usually drinks between 12-18 beers every day and has done so for at least 10 years States he has only had mild withdrawal symptoms no seizure-like activities Thiamine, folic acid, and multi-vitamin PPI daily Librium Ativan PRN for seizure activity CIWA daily, most recent ranging 3-5. Last received ativan 03/18 at 0730 Monitor and replenish electrolytes as needed Seizure precautions if indicated (4) Hyponatremia: Code(s): E87.1 - Hypo-osmolality and hyponatremia Status: Acute Assessment and Plan: Hyponatremia likely secondary to patient's dehydration and alcohol intoxication * continue with IV fluids improving sodium 131 * trend (5) Type 1 diabetes mellitus: Qualifiers: Diabetes mellitus complication detail: with diabetic microalbuminuria Diabetes mellitus complication status: with kidney complications Qualified Code(s): E10.29 - Type 1 diabetes mellitus with other diabetic kidney complication; R80.9 - Proteinuria, unspecified Code(s): E10.9 - Type 1 diabetes mellitus without complications Status: Acute Assessment and Plan: patient is a type 1 diabetic - hypoglycemia protocol - POC blood glucose ACHS - home medication - lantus 54 units BID and lispro SSI - correct regimen ordered - lantus 54 units BID and SSI Glucose levels are poorly controlled on the lower dose of lantus. Increased to home dose. Will continue to monitor. L (6) Essential hypertension: Code(s): I10 - Essential (primary) hypertension Status: Acute Assessment and Plan: Chronic, continue home medication - lisinopril 20 mg daily - hydralazine IV push for systolics over 160 - remain stable, continue to monitor (7) Continuous tobacco abuse: Code(s): Z72.0 - Tobacco use Status: Acute Assessment and Plan: nicotine patch p.r.n. remove at night encouraged smoking cessation Time Spent With Patient Time with patient: 25 - 35 minutes Subjective Date/time seen: 03/19/25 06:56 Interval history: 44 year old male with past medical history of alcoholism, tobacco use, obesity, GERD, type 1 diabetes mellitus, essential hypertension and GERD who presented to the hospital from family member's house where he is visiting after slipping and falling resulting in left ankle fracture. Patient is pleasant sitting up comfortably in his bed. He has no complaints at this chest pain shortness a, palpitations, nausea/vomiting and abdominal pain. He is working well physical therapy and per care coordination they are working placement for continued rehab. Patient was evaluated today by speech therapy for concern of aspiration pneumonia and no further recommendations were made from speech therapy as patient tolerated the regular diet and thin liquids. Patient states that he has not been coughing or having issues with swallowing. Review of Systems Review of Systems: All systems reviewed & are unremarkable except as noted in HPI and below Exam Narrative: AF HR 101 RR 19 SpO2 96 BP 143/70 General: male in no acute respiratory distress who is nontoxic appearing, sitting up on side of bed HEENT: Normocephalic. Atraumatic. Extraocular movement intact. Sclera clear and anicteric. No facial asymmetry. Chest: Lungs are slightly diminished to the bases to auscultation bilaterally. Nonproductive cough. CV: Heart was regular rate and rhythm. Abd: Abdomen was soft. Nontender. Nondistended. Positive bowel sounds. Ext: Left lower extremity with surgical dressing in place. Wiggling toes. Sensation intact. Neuro: Patient is alert and oriented x4. Speech is clear. Objective Data Vital Signs Vital Signs: Vital Signs - 24 hr 03/18/25 07:27 03/18/25 08:00 03/18/25 10:36 Temperature Pulse Rate Pulse Rate [Left Pedal (Dorsalis Pedis) Palpation] 94 Respiratory Rate Blood Pressure 126/68 Pulse Oximetry 98 97 Oxygen Delivery Room Air Room Air 03/18/25 13:45 03/18/25 20:00 03/18/25 20:53 Temperature 97.4 F L 98.1 F Pulse Rate 102 H 114 H 114 H Pulse Rate [Left Pedal (Dorsalis Pedis) Palpation] Respiratory Rate 18 16 16 Blood Pressure 121/64 150/66 H Pulse Oximetry 98 97 97 Oxygen Delivery Room Air 03/18/25 20:53 03/19/25 00:00 03/19/25 04:00 Temperature Pulse Rate Pulse Rate [Left Pedal (Dorsalis Pedis) Palpation] 114 H 109 H 93 Respiratory Rate Blood Pressure Pulse Oximetry Oxygen Delivery 03/19/25 04:27 Temperature 97.0 F L Pulse Rate 101 H Pulse Rate [Left Pedal (Dorsalis Pedis) Palpation] Respiratory Rate 18 Blood Pressure 143/70 H Pulse Oximetry 96 Oxygen Delivery Intake/Output Intake/Output: Intake & Output 03/16/25 03/17/25 03/18/25 03/19/25 23:59 23:59 23:59 23:59 Intake Total 2616.7 2610 3074 240 Output Total 7400 4400 2800 1000 [facility] -4783.3 -1790 892 -928 Meds/Results Medications: Active Medications Generic Name Dose Route Start Last Admin Trade Name Freq PRN Reason Stop Dose Admin Acetaminophen 650 mg 03/14/25 22:25 Acetaminophen 325 Mg Tablet PO Q4H PRN Mild Pain (1-3) or Fever Hydrocodone Bitart/Acetaminophen 1 tab 03/14/25 22:25 03/18/25 03:20 Hydrocodone/Acetaminophen (*Crx) 5-325 Mg Tablet PO 1 tab Q4H PRN Administration Pain Rated 4-6 Albuterol/Ipratropium 3 ml 03/16/25 07:55 03/16/25 11:06 Ipratropium 0.5 Mg/Albuterol Sulfate 2.5 Mg Ampul.Neb 3 Ml INHALATION 3 ml Q6HRT PRN Administration sob Chlordiazepoxide HCl 50 mg 03/16/25 14:00 03/18/25 22:18 Chlordiazepoxide (*Crx) 25 Mg Capsule PO 50 mg Q8HR SUREKHA Administration Dextrose 12.5 gm 03/14/25 22:27 Dextrose 50% 25 Gm/50 Ml Syringe IV PUSH PRN PRN Hypoglycemia Protocol Diazepam 5 mg 03/15/25 13:47 03/17/25 21:07 Diazepam Inj (*Crx) 10 Mg/2 Ml Syringe IV PUSH 5 mg Q8HR PRN Administration Muscle Spasticity Enoxaparin Sodium 40 mg 03/16/25 09:00 03/18/25 08:01 Enoxaparin 40 Mg/0.4 Ml Syringe SUB-Q Not Given DAILY SUREKHA Famotidine 40 mg 03/15/25 21:00 03/18/25 22:18 Famotidine 20 Mg Tablet PO 40 mg HS SUREKHA Administration Fentanyl Citrate 25 mcg 03/16/25 12:15 Fentanyl Citrate Inj (*Crx) 100 Mcg/2 Ml Vial IV PUSH Q2M PRN Pain Fluticasone Propionate 2 spray 03/15/25 09:00 03/18/25 08:06 Fluticasone Propionate 0.05% Na Spr 16 Gm Btl (*Bkc) NASAL 2 spray DAILY SUREKHA Administration Folic Acid 1 mg 03/15/25 09:00 03/18/25 08:03 Folic Acid 1 Mg Tablet PO 1 mg DAILY SUREKHA Administration Glucagon 1 mg 03/14/25 22:27 Glucagon For Inj 1 Mg Vial IM PRN PRN Hypoglycemia Protocol Glucose 15 gm 03/14/25 22:27 Glucose Oral Gel 15 Gm Of Glucse In 37.5 Gm Tube PO PRN PRN Hypoglycemia Protocol Guaifenesin/Dextromethorphan 1 tab 03/16/25 09:00 03/18/25 22:17 Guaifenesin 600 Mg/Dextromethorphan 30 Mg Sr Tab 12 Hr PO 1 tab Q12HR SUREKHA Administration Hydralazine HCl 20 mg 03/15/25 08:32 Hydralazine Hcl 20 Mg/Ml Vial IV PUSH Q6H PRN Hypertension Hydromorphone HCl 0.5 mg 03/14/25 22:25 03/19/25 04:32 Hydromorphone Hcl Inj (*Crx) 2 Mg/Ml Vial IV PUSH 0.5 mg Q4H PRN Administration Pain Rated 7-10 Dextrose 1,000 mls @ 100 mls/hr 03/14/25 22:27 Dextrose 5% 1,000 Ml IVPB PRN PRN Hypoglycemia Protocol Lactated Ringer's 1,000 mls @ 30 mls/hr 03/16/25 12:15 03/18/25 08:06 Lr - Lactated Ringers Iv IV CONT Not Given .Q24H SUREKHA Ceftriaxone Sodium 1 gm/ 50 mls @ 100 mls/hr 03/18/25 16:00 03/18/25 17:16 Sodium Chloride IVPB 100 mls/hr Q24H SUREKHA Administration Insulin Aspart 0 units 03/15/25 21:00 03/18/25 21:55 Insulin Aspart (*Bkc) 100 Units/Ml SUB-Q 18 units 0800,1200,1700,2100 SUREKHA Administration Insulin Glargine 40 units 03/15/25 09:00 03/18/25 22:00 Insulin Glargine (*Bkc) 100 Units/Ml SUB-Q 40 units Q12HR SUREKHA Administration Lisinopril 20 mg 03/15/25 09:00 03/18/25 08:03 Lisinopril 20 Mg Tablet PO 20 mg DAILY SUREKHA Administration Loratadine 10 mg 03/15/25 09:00 03/18/25 08:03 Loratadine 10 Mg Tablet PO 10 mg QAM SUREKHA Administration Lorazepam 2 mg 03/15/25 03:52 03/18/25 07:30 Lorazepam Inj (*Crx) 2 Mg/Ml Vial IV PUSH 2 mg Q4H PRN Administration CIWA 8-15 Metronidazole 500 mg 03/18/25 22:00 03/18/25 22:18 Metronidazole 500 Mg Tablet PO 500 mg Q8HR SUREKHA Administration Miscellaneous Information 1 each 03/15/25 21:00 Pharmacist Communication Order XX 04/14/25 20:59 QID@0800,1200,1700,2100 SUREKHA Multivitamins Therapeutic 1 tablet 03/15/25 09:00 03/18/25 08:03 Multivitamins Therapeutic Tab (*Bkc) PO 1 tablet QAM SUREKHA Administration Ondansetron HCl 4 mg 03/14/25 22:25 Ondansetron Inj 4 Mg/2 Ml Vial IV PUSH Q4H PRN Nausea Pantoprazole Sodium 40 mg 03/15/25 09:00 03/18/25 08:03 Pantoprazole 40 Mg Tablet PO 40 mg QAM SUREKHA Administration Polyethylene Glycol 17 gm 03/17/25 09:00 03/18/25 08:03 Polyethylene Glycol 3350 17 Gm Powd.Pack PO 17 gm QAM SUREKHA Administration Senna/Docusate Sodium 2 tab 03/16/25 17:00 03/18/25 16:20 Senna/Docusate Sodium Tablet PO 2 tab BID SUREKHA Administration Simvastatin 80 mg 03/15/25 21:00 03/18/25 22:18 Simvastatin 20 Mg Tablet PO 80 mg QHS SUREKHA Administration Thiamine HCl 100 mg 03/15/25 09:00 03/18/25 08:03 Thiamine Hcl 100 Mg Tablet PO 100 mg QAM SUREKHA Administration Radiology Results: ITS Impressions Tibia/Fibula X-Ray 03/14/25 18:52 IMPRESSION: Trimalleolar fracture/dislocation of the left ankle. Chest X-Ray 03/16/25 05:51 Impression: Clear lungs. Cervical Spine CT 03/18/25 09:28 IMPRESSION: 1. 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 No acute osseous abnormality. Thoracic/Lumbar Spine CT 03/18/25 14:02 IMPRESSION: 1. Mild thoracic and lumbar spondylosis with minimal physiologic anterior wedging at T12 and L1 but no acute osseous abnormality. 2. Prominent airspace opacity bilateral lower lobes consistent with aspiration and/or pneumonia. Labs Labs: Laboratory Results - last 24 hr 03/18/25 03/18/25 03/18/25 07:54 11:18 12:09 WBC RBC Hgb Hct MCV MCH MCHC RDW Plt Count MPV POC Capillary Glucose 222 H 353 H 326 H 03/18/25 03/18/25 03/19/25 16:14 20:55 05:58 WBC 14.0 H RBC 3.99 L Hgb 11.9 L Hct 35.8 L MCV 89.7 MCH 29.8 MCHC 33.2 RDW 11.7 Plt Count 355 MPV 8.8 POC Capillary Glucose 186 H 328 H Quality VTE Prophylaxis VTE prophylaxis: pharmacologic ordered (Lovenox 40 mg subQ daily.)
[2025-03-19 07:16] LABS: Alanine Aminotransferase 26 U/L (6-50); Albumin Level 4.1 g/dL (3.5-5.1); Alkaline Phosphatase 85 U/L (38-126); Anion Gap 16 mmol/L (4-12); Aspartate Amino Transferase 23 U/L (17-59); Bilirubin,Total 0.5 mg/dL (0.2-1.3); Blood Urea Nitrogen 9 mg/dL (9-20); Calcium 9.2 mg/dL (8.4-10.2); Carbon Dioxide 18 mmol/L (22-30); Chloride 97 mmol/L (98-107); Estimated CRCL calculation 146 ml/min; Estimated Glomerular Filt Rate > 60; Glucose 256 mg/dL (65-110); Magnesium 2.0 mg/dL (1.6-2.3); Potassium 4.5 mmol/L (3.4-5.0); Sodium 131 mmol/L (137-145); Total Protein 6.1 g/dL (6.3-8.2)
[2025-03-19] MEDS: SENNA/DOCUSATE SODIUM TABLET 2 TAB PO ×2 (08:06→17:30)
[2025-03-19] MEDS: guaiFENesin 600 MG/DEXTROMETHORPHAN 30 MG SR TAB 12 HR 1 TAB PO ×2 (08:06→21:06)
[2025-03-19] MEDS: MULTIVITAMINS THERAPEUTIC TAB (*BKC) 1 TABLET PO (08:07)
[2025-03-19] MEDS: chlordiazePOXIDE (*CRX) 25 MG CAPSULE 50 MG PO ×3 (08:07→21:06)
[2025-03-19] MEDS: FOLIC ACID 1 MG TABLET PO (08:07)
[2025-03-19] MEDS: PANTOPRAZOLE 40 MG TABLET PO (08:07)
[2025-03-19] MEDS: LORATADINE 10 MG TABLET PO (08:07)
[2025-03-19] MEDS: THIAMINE HCL 100 MG TABLET PO (08:07)
[2025-03-19] MEDS: INSULIN GLARGINE (*BKC) 100 UNITS/ML 40 UNITS SUB-Q (08:17)
[2025-03-19] MEDS: INSULIN ASPART (*BKC) 100 UNITS/ML SUB-Q ×3 (08:18→17:24)
[2025-03-19] MEDS: FLUTICASONE PROPIONATE 0.05% NA SPR 16 GM BTL (*BKC) 2 SPRAY NASAL (08:25)
--- NOTE | 2025-03-19 10:44 | PCSTNOTE ---
Please refer to the Bedside Swallow Evaluation in the EMR. Please note, silent aspiration cannot be ruled out at bedside.
[2025-03-19 14:00] VITALS: BP 112/58; PULSE 108; RESP 18; TEMP 36.4; O2SAT 99
[2025-03-19] MEDS: HYDROcodone/acetaminophen (*CRX) 5-325 MG TABLET 1 TAB PO ×2 (14:20→20:52)
[2025-03-19] MEDS: cefTRIAXone 1 GM in SODIUM CHLORIDE 0.9% IV 50 ML 100 ML IVPB (17:30)
[2025-03-19 20:00] VITALS: PULSE 104
[2025-03-19 20:25] VITALS: BP 112/59; PULSE 104; RESP 16; TEMP 35.9; O2SAT 99
[2025-03-19] MEDS: FAMOTIDINE 20 MG TABLET 40 MG PO (21:06)
[2025-03-19] MEDS: SIMVASTATIN 20 MG TABLET 80 MG PO (21:06)
[2025-03-19] MEDS: INSULIN GLARGINE (*BKC) 100 UNITS/ML 54 UNITS SUB-Q (21:13)
[2025-03-20 05:10] VITALS: BP 149/89; PULSE 100; RESP 18; TEMP 36.3; O2SAT 98
[2025-03-20] MEDS: chlordiazePOXIDE (*CRX) 25 MG CAPSULE 50 MG PO ×2 (05:42→15:04)
[2025-03-20 06:22] LABS: Hematocrit 36.7 % (42.0-52.0); Hemoglobin 12.6 g/dL (14.0-18.0); Mean Corpuscular HGB Conc 34.3 g/dl (32-36); Mean Corpuscular Hemoglobin 30.7 pg (26-34); Mean Corpuscular Volume 89.3 fl (80-100); Platelet Count Result 421 k/mm3 (150-375); Red Blood Count 4.11 M/mm3 (4.6-6.20); White Blood Count 11.7 K/mm3 (4.5-10.0)
[2025-03-20 06:43] LABS: Alanine Aminotransferase 30 U/L (6-50); Albumin Level 4.2 g/dL (3.5-5.1); Alkaline Phosphatase 89 U/L (38-126); Anion Gap 16 mmol/L (4-12); Aspartate Amino Transferase 31 U/L (17-59); Bilirubin,Total 0.6 mg/dL (0.2-1.3); Blood Urea Nitrogen 11 mg/dL (9-20); Calcium 9.4 mg/dL (8.4-10.2); Carbon Dioxide 22 mmol/L (22-30); Chloride 94 mmol/L (98-107); Estimated CRCL calculation 146 ml/min; Estimated Glomerular Filt Rate > 60; Glucose 197 mg/dL (65-110); Magnesium 1.9 mg/dL (1.6-2.3); Potassium 4.0 mmol/L (3.4-5.0); Sodium 132 mmol/L (137-145); Total Protein 6.5 g/dL (6.3-8.2)
[2025-03-20] MEDS: INSULIN ASPART (*BKC) 100 UNITS/ML SUB-Q ×2 (08:14→12:09)
[2025-03-20] MEDS: INSULIN GLARGINE (*BKC) 100 UNITS/ML 54 UNITS SUB-Q (08:15)
[2025-03-20] MEDS: FOLIC ACID 1 MG TABLET PO (08:17)
[2025-03-20] MEDS: LORATADINE 10 MG TABLET PO (08:17)
[2025-03-20] MEDS: PANTOPRAZOLE 40 MG TABLET PO (08:17)
[2025-03-20] MEDS: THIAMINE HCL 100 MG TABLET PO (08:17)
[2025-03-20] MEDS: SENNA/DOCUSATE SODIUM TABLET 2 TAB PO (08:17)
[2025-03-20] MEDS: MULTIVITAMINS THERAPEUTIC TAB (*BKC) 1 TABLET PO (08:17)
[2025-03-20] MEDS: guaiFENesin 600 MG/DEXTROMETHORPHAN 30 MG SR TAB 12 HR 1 TAB PO (08:17)
[2025-03-20] MEDS: FLUTICASONE PROPIONATE 0.05% NA SPR 16 GM BTL (*BKC) 2 SPRAY NASAL (08:18)
[2025-03-20] MEDS: HYDROcodone/acetaminophen (*CRX) 5-325 MG TABLET 1 TAB PO (08:28)
--- NOTE | 2025-03-20 09:31 | PCNWS ---
Weekly nutritional screen. Patient is tolerating current Diabetic consistent carb diet with adequate intake, 100% all meals. No weight loss reported. No nutritional needs at this time.
--- NOTE | 2025-03-20 12:27 | P.PNOP_ITS ---
Progress Note: A&P Assessment and Plan (1) Trimalleolar fracture of left ankle: Qualifiers: Encounter type: initial encounter Fracture type: closed Qualified Code(s): S82.852A - Displaced trimalleolar fracture of left lower leg, initial encounter for closed fracture Code(s): S82.852A - Displaced trimalleolar fracture of left lower leg, initial encounter for closed fracture Status: Acute Assessment and Plan: POD 4 ORIF LT ankle Pain control. PT/OT- NWB lt leg Lovenox for dvt New short-leg cast applied. Fracture blisters decompressed. Sterile dressing. Keep cast clean and dry. Plan for rehab today. Continue nonweightbearing left leg. Follow up in orthopedic office in 3 weeks. Subjective Subjective Date/Time Seen: 03/20/25 12:27 Post Op day: 4 Principal diagnosis: Left Ankle Trimalleolar fracture Interval history: POD 4 ORIF LT ankle Comfortable, no problems over night Dressing change today. Exam Const: General: healthy appearing; No in distress or confusion Orientation/consciousness: patient oriented x3 and No confusion HENMT: Head: normal to inspection, normocephalic and atraumatic Eyes: Conjunctivae: conjunctivae normal Sclera: sclerae normal Resp: Effort & Inspection: normal respiratory effort and no audible wheezes : Meatus: no epispadias Neuro: General: patient oriented x3 and No confusion Extrem: Other: LT ankle splint in place, Toes pink, good sensation and cap refill. Negative Homans Dressing removed today. Incisions are clean dry and intact. Large fracture blister over the medial distal tibia, proximal to the medial incision. Fracture blister over the anterior ankle. These were decompressed with a sterile 25 gauge needle. The entire leg was prepped with an alcohol solution and wrapped with sterile gauze dressing. There is ecchymosis over the anterior and lateral ankle consistent with injury and swelling. No open wounds or open areas noted. Psych: Affect: normal affect Objective Data Vital Signs Vital Signs: Vital Signs - 24 hr 03/19/25 14:00 03/19/25 20:00 03/19/25 20:25 Temperature 97.5 F L 96.6 F L Pulse Rate 108 H 104 H Pulse Rate [Left Pedal (Dorsalis Pedis) Palpation] 104 H Respiratory Rate 18 16 Blood Pressure 112/58 L 112/59 L Pulse Oximetry 99 99 Oxygen Delivery 03/20/25 05:10 03/20/25 08:15 Temperature 97.3 F L Pulse Rate 100 Pulse Rate [Left Pedal (Dorsalis Pedis) Palpation] Respiratory Rate 18 Blood Pressure 149/89 H Pulse Oximetry 98 Oxygen Delivery Room Air Intake/Output Intake/Output: Intake & Output 03/17/25 03/18/25 03/19/25 03/20/25 23:59 23:59 23:59 23:59 Intake Total 2610 3124 1368 862 Output Total 4400 2800 1700 575 Balance -1790 324 -332 287 Meds/Results Medications: Active Medications Generic Name Dose Route Start Last Admin Trade Name Freq PRN Reason Stop Dose Admin Acetaminophen 650 mg 03/14/25 22:25 Acetaminophen 325 Mg Tablet PO Q4H PRN Mild Pain (1-3) or Fever Hydrocodone Bitart/Acetaminophen 1 tab 03/14/25 22:25 03/20/25 08:28 Hydrocodone/Acetaminophen (*Crx) 5-325 Mg Tablet PO 1 tab Q4H PRN Administration Pain Rated 4-6 Albuterol/Ipratropium 3 ml 03/16/25 07:55 03/16/25 11:06 Ipratropium 0.5 Mg/Albuterol Sulfate 2.5 Mg Ampul.Neb 3 Ml INHALATION 3 ml Q6HRT PRN Administration sob Chlordiazepoxide HCl 50 mg 03/16/25 14:00 03/20/25 05:42 Chlordiazepoxide (*Crx) 25 Mg Capsule PO 50 mg Q8HR SUREKHA Administration Dextrose 12.5 gm 03/14/25 22:27 Dextrose 50% 25 Gm/50 Ml Syringe IV PUSH PRN PRN Hypoglycemia Protocol Diazepam 5 mg 03/15/25 13:47 03/17/25 21:07 Diazepam Inj (*Crx) 10 Mg/2 Ml Syringe IV PUSH 5 mg Q8HR PRN Administration Muscle Spasticity Enoxaparin Sodium 40 mg 03/16/25 09:00 03/20/25 08:17 Enoxaparin 40 Mg/0.4 Ml Syringe SUB-Q Not Given DAILY SUREKHA Famotidine 40 mg 03/15/25 21:00 03/19/25 21:06 Famotidine 20 Mg Tablet PO 40 mg HS SUREKHA Administration Fentanyl Citrate 25 mcg 03/16/25 12:15 Fentanyl Citrate Inj (*Crx) 100 Mcg/2 Ml Vial IV PUSH Q2M PRN Pain Fluticasone Propionate 2 spray 03/15/25 09:00 03/20/25 08:18 Fluticasone Propionate 0.05% Na Spr 16 Gm Btl (*Bkc) NASAL 2 spray DAILY SUREKHA Administration Folic Acid 1 mg 03/15/25 09:00 03/20/25 08:17 Folic Acid 1 Mg Tablet PO 1 mg DAILY SUREKHA Administration Glucagon 1 mg 03/14/25 22:27 Glucagon For Inj 1 Mg Vial IM PRN PRN Hypoglycemia Protocol Glucose 15 gm 03/14/25 22:27 Glucose Oral Gel 15 Gm Of Glucse In 37.5 Gm Tube PO PRN PRN Hypoglycemia Protocol Guaifenesin/Dextromethorphan 1 tab 03/16/25 09:00 03/20/25 08:17 Guaifenesin 600 Mg/Dextromethorphan 30 Mg Sr Tab 12 Hr PO 1 tab Q12HR SUREKHA Administration Hydralazine HCl 20 mg 03/15/25 08:32 Hydralazine Hcl 20 Mg/Ml Vial IV PUSH Q6H PRN Hypertension Hydromorphone HCl 0.5 mg 03/14/25 22:25 03/19/25 22:57 Hydromorphone Hcl Inj (*Crx) 2 Mg/Ml Vial IV PUSH 0.5 mg Q4H PRN Administration Pain Rated 7-10 Dextrose 1,000 mls @ 100 mls/hr 03/14/25 22:27 Dextrose 5% 1,000 Ml IVPB PRN PRN Hypoglycemia Protocol Ceftriaxone Sodium 1 gm/ 50 mls @ 100 mls/hr 03/18/25 16:00 03/19/25 18:00 Sodium Chloride IVPB Infused Q24H SUREKHA Infusion Insulin Aspart 0 units 03/15/25 21:00 03/20/25 12:09 Insulin Aspart (*Bkc) 100 Units/Ml SUB-Q 25 units 0800,1200,1700,2100 SUREKHA Administration Insulin Glargine 54 units 03/19/25 21:00 03/20/25 08:15 Insulin Glargine (*Bkc) 100 Units/Ml SUB-Q 54 units Q12HR SUREKHA Administration Lisinopril 20 mg 03/15/25 09:00 03/20/25 08:17 Lisinopril 20 Mg Tablet PO 20 mg DAILY SUREKHA Administration Loratadine 10 mg 03/15/25 09:00 03/20/25 08:17 Loratadine 10 Mg Tablet PO 10 mg QAM SUREKHA Administration Lorazepam 2 mg 03/15/25 03:52 03/18/25 07:30 Lorazepam Inj (*Crx) 2 Mg/Ml Vial IV PUSH 2 mg Q4H PRN Administration CIWA 8-15 Metronidazole 500 mg 03/18/25 22:00 03/20/25 05:43 Metronidazole 500 Mg Tablet PO 500 mg Q8HR SUREKHA Administration Miscellaneous Information 1 each 03/15/25 21:00 Pharmacist Communication Order XX 04/14/25 20:59 QID@0800,1200,1700,2100 [facility] Multivitamins Therapeutic 1 tablet 03/15/25 09:00 03/20/25 08:17 Multivitamins Therapeutic Tab (*Bkc) PO 1 tablet QAM [facility] Administration Ondansetron HCl 4 mg 03/14/25 22:25 Ondansetron Inj 4 Mg/2 Ml Vial IV PUSH Q4H PRN Nausea Pantoprazole Sodium 40 mg 03/15/25 09:00 03/20/25 08:17 Pantoprazole 40 Mg Tablet PO 40 mg QAM [facility] Administration Polyethylene Glycol 17 gm 03/17/25 09:00 03/20/25 08:24 Polyethylene Glycol 3350 17 Gm Powd.Pack PO Not Given QAM SUREKHA Senna/Docusate Sodium 2 tab 03/16/25 17:00 03/20/25 08:17 Senna/Docusate Sodium Tablet PO 2 tab BID SUREKHA Administration Simvastatin 80 mg 03/15/25 21:00 03/19/25 21:06 Simvastatin 20 Mg Tablet PO 80 mg QHS SUREKHA Administration Thiamine HCl 100 mg 03/15/25 09:00 03/20/25 08:17 Thiamine Hcl 100 Mg Tablet PO 100 mg QAM [facility] Administration Radiology Results: ITS Impressions Tibia/Fibula X-Ray 03/14/25 18:52 IMPRESSION: Trimalleolar fracture/dislocation of the left ankle. Chest X-Ray 03/16/25 05:51 Impression: Clear lungs. Cervical Spine CT 03/18/25 09:28 IMPRESSION: 1. 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 No acute oss eous abnormality. Thoracic/Lumbar Spine CT 03/18/25 14:02 IMPRESSION: 1. Mild thoracic and lumbar spondylosis with minimal physiologic anterior wedging at T12 and L1 but no acute osseous abnormality. 2. Prominent airspace opacity bilateral lower lobes consistent with aspiration and/or pneumonia. Labs Labs: Laboratory Results - last 24 hr 03/19/25 03/19/25 03/20/25 17:16 20:30 05:48 WBC 11.7 H RBC 4.11 L Hgb 12.6 L Hct 36.7 L MCV 89.3 MCH 30.7 MCHC 34.3 RDW 11.6 Plt Count 421 H MPV 8.8 Sodium 132 L Potassium 4.0 Chloride 94 L Carbon Dioxide 22 Anion Gap 16 H BUN 11 Creatinine 0.65 L Estim Creat Clear Calc 146 Estimated GFR > 60 Glucose 197 H POC Capillary Glucose 241 H 169 H Calcium 9.4 Magnesium 1.9 Total Bilirubin 0.6 AST 31 ALT 30 Alkaline Phosphatase 89 Total Protein 6.5 Albumin 4.2 03/20/25 03/20/25 07:48 11:39 WBC RBC Hgb Hct MCV MCH MCHC RDW Plt Count MPV Sodium Potassium Chloride Carbon Dioxide Anion Gap BUN Creatinine Estim Creat Clear Calc Estimated GFR Glucose POC Capillary Glucose 230 H 259 H Calcium Magnesium Total Bilirubin AST ALT Alkaline Phosphatase Total Protein Albumin Fracture/Casting/Strapping Pre Procedure Consent was obtained, Procedures/risks were explained, Questions were answered, Correct patient identified and Correct side and site confirmed Episode of Care Return Visit Location: Left thigh Casting Cast: Short Leg Cast (Left short leg fiberglass cast) Modification and Status: Cast removed for exam Supplies and DME Casting Supplies: Cast supls;shrt leg cast,adult,fibr (4 rolls) Material: Fiberglass Application Exam of Affected Area: Color: Abnormal (ecchymosis anterior ankle), Temp: Normal, Pulse: Normal, Blanching: Normal, Capillary Refill: Normal and Sensory Exam: Normal Swelling: Yes (fx blisters) and Tenderness: Yes (mild) Skin Apperance: Blistered Care: Alcohol Wipes Patient Tolerated Procedure Well: Yes Post Procedure Patient tolerated the procedure well?: Tolerated procedure well
--- NOTE | 2025-03-20 12:28 | P.DS_ITS ---
DS: Admitting Diagnosis Discharge Date 03/20/2025 Admitting Diagnosis Ankle fracture DS: Discharge Diagnosis Discharge Diagnosis (1) Trimalleolar fracture of left ankle: Qualifiers: Encounter type: initial encounter Fracture type: closed Qualified Code(s): S82.852A - Displaced trimalleolar fracture of left lower leg, initial encounter for closed fracture Code(s): S82.852A - Displaced trimalleolar fracture of left lower leg, initial encounter for closed fracture Status: Acute (2) Pneumonia: Code(s): J18.9 - Pneumonia, unspecified organism Status: Acute (3) ETOH abuse: Code(s): F10.10 - Alcohol abuse, uncomplicated Status: Acute (4) Hyponatremia: Code(s): E87.1 - Hypo-osmolality and hyponatremia Status: Acute (5) Type 1 diabetes mellitus: Qualifiers: Diabetes mellitus complication status: with kidney complications Diabetes mellitus complication detail: with diabetic microalbuminuria Qualified Code(s): E10.29 - Type 1 diabetes mellitus with other diabetic kidney complication; R80.9 - Proteinuria, unspecified Code(s): E10.9 - Type 1 diabetes mellitus without complications Status: Acute (6) Essential hypertension: Code(s): I10 - Essential (primary) hypertension Status: Acute (7) Continuous tobacco abuse: Code(s): Z72.0 - Tobacco use Status: Acute DS: Summary Hospital Course Hospital Course: # Trimalleolar fracture of left ankle: Ankle and Tibia/fibula XR: Trimalleolar fracture/dislocation of the left ankle Reduced in the ED, post reduction XR showed improved alignment of the tibiotalar dislocation, with residual lateral subluxation of the talus. Improved alignment of the trimalleolar fractures with 5 mm persistent lateral displacement of the medial malleolus and persistent 5 mm lateral and 6 mm posterior displacement of the lateral malleolus. Analgesics DVT ppx with lovenox PT/OT recommending SNF vs home health non weight bearing to left lower extremity per ortho recommendations Orthopedic surgery has been consulted s/p ORIF LT ankle trimalleolar with fixation medial and lateral mal fxs on 03/[address] Ramesh # Pneumonia: T/L spine CT: Prominent airspace opacity bilateral lower lobes consistent with aspiration and/or pneumonia. Given elevated white count and development of cough patient started on pneumonia treatment - antibiotics: rocephin and flagyl started on 03/18 - Viral PCR: negative for Flu/COVID/RSV - given aspiration concern speech therapy consulted for bedside swallow study. No concerns per speech therapy. - no supplemental O2 requirement - Monitor vital signs, I&Os, neuro status and patient is a fall risk - Follow WBC, serum electrolytes, temperature curves and cultures # ETOH abuse: Patient has history alcohol abuse reported he was drinking prior to arrival. Usually drinks between 12-18 beers every day and has done so for at least 10 years States he has only had mild withdrawal symptoms no seizure-like activities Thiamine, folic acid, and multi-vitamin PPI daily Librium Ativan PRN for seizure activity CIWA daily, most recent ranging 3-5. Last received ativan 03/18 at 0730 Monitor and replenish electrolytes as needed Seizure precautions if indicated # Hyponatremia: Hyponatremia likely secondary to patient's dehydration and alcohol intoxication Stable # Type 1 diabetes mellitus: patient is a type 1 diabetic - hypoglycemia protocol - POC blood glucose ACHS - home medication - lantus 54 units BID and lispro SSI - correct regimen ordered - lantus 54 units BID and SSI Glucose levels are poorly controlled on the lower dose of lantus. Increased to home dose. Will continue to monitor. # Essential hypertension: Chronic, continue home medication - lisinopril 20 mg daily - hydralazine IV push for systolics over 160 - remain stable, continue to monitor # Continuous tobacco abuse: nicotine patch p.r.n. remove at night encouraged smoking cessation Time Spent with Patient Time attestation: Total time spent providing and/or coordinating discharge services: 40 minutes Exam Narrative: General: male in no acute respiratory distress who is nontoxic appearing, sitting up on side of bed HEENT: Normocephalic. Atraumatic. Extraocular movement intact. Sclera clear and anicteric. No facial asymmetry. Chest: Lungs are slightly diminished to the bases to auscultation bilaterally. Nonproductive cough. CV: Heart was regular rate and rhythm. Abd: Abdomen was soft. Nontender. Nondistended. Positive bowel sounds. Ext: Left lower extremity with surgical dressing in place. Wiggling toes. Sensation intact. Neuro: Patient is alert and oriented x4. Speech is clear. DS: Data Data Completed and Pending Labs on day of discharge: Labs from last 24 hours 03/20/25 03/20/25 03/20/25 11:39 07:48 05:48 WBC 11.7 H RBC 4.11 L Hgb 12.6 L Hct 36.7 L MCV 89.3 MCH 30.7 MCHC 34.3 RDW 11.6 Plt Count 421 H MPV 8.8 Sodium 132 L Potassium 4.0 Chloride 94 L Carbon Dioxide 22 Anion Gap 16 H BUN 11 Creatinine 0.65 L Estim Creat Clear Calc 146 Estimated GFR > 60 Glucose 197 H POC Capillary Glucose 259 H 230 H Calcium 9.4 Magnesium 1.9 Total Bilirubin 0.6 AST 31 ALT 30 Alkaline Phosphatase 89 Total Protein 6.5 Albumin 4.2 03/19/25 03/19/25 20:30 17:16 WBC RBC Hgb Hct MCV MCH MCHC RDW Plt Count MPV Sodium Potassium Chloride Carbon Dioxide Anion Gap BUN Creatinine Estim Creat Clear Calc Estimated GFR Glucose POC Capillary Glucose 169 H 241 H Calcium Magnesium Total Bilirubin AST ALT Alkaline Phosphatase Total Protein Albumin Procedures/Treatments: Procedure Note - Detailed Date of Procedure 03/16/25 Pre-op Diagnosis Trimalleolar left ankle fracture Post-op Diagnosis Same Procedure Performed ORIF LT ankle trimal with fixation medial and lateral mal fxs Surgeon Shun Ramesh MD Order Processor 1st surgery assistant Anesthesia General Indications 44-year-old who slipped and fell and sustained a left ankle trimalleolar fracture dislocation. This was reduced in the emergency room. He was medically stabilized and presents now for operative treatment. Description of Procedure After informed consent, the operative extremity was marked in the preoperative holding area. Patient received intravenous antibiotics. Patient was then taken to the operating room and underwent general anesthesia by the anesthesia team. Positioned supine on the operating room table with a soft bump under the ipsilateral hip. A time-out was performed confirming the patient, site of the surgery, operative plan. Lower extremity then prepped and draped in the usual sterile surgical fashion using ChloraPrep skin solution. Foot and ankle exsanguinated and a thigh tourniquet inflated to 250 mmHg. Longitudinal incision made over the lateral ankle distal fibula with a 15 blade knife. Hemostasis controlled with electrocautery. Full-thickness soft tissue flaps developed and the fascia was incised in line with the skin incision. A no-touch technique was employed for the skin to avoid any skin damage. Fracture identified and cleared with a dental pick, irrigation and rongeur. Fracture reduced and held with bone-holding clamp. Image intensification confirmed reduction of the fracture and the ankle mortise. Fixation achieved with a 3.5 millimeter fully-threaded cortical screw placed in lag technique across the fracture. Neutralization with a lateral plate with unicortical screws distal to fracture and bicortical screws proximal to the fracture. Good alignment and stability of the fracture noted. Image intensification used to confirm reduction of the fracture and placement of the hardware. Medial side then addressed. Longitudinal incision made with a 15 blade knife over the medial malleolus fracture. Hemostasis controlled with electrocautery. Fascia incised in line with skin incision. Periosteum cleared from the medial malleolus fracture. Medial side of the joint inspected and noted to have mild amount of trauma to the chondral surface. Thorough irrigation of the ankle joint and suctioned out. Fracture reduced and provisionally pinned. Fixation achieved with 4.0 mm partially threaded cancellous screw placed in cannulated sc rew fashion. Image intensification confirmed reduction of the fracture and placement of the hardware. Stress of the ankle performed with good stability of the ankle mortise in all directions. Posterior malleolus noted to be reduced and stable. Wounds thoroughly irrigated with antibiotic solution. Fascia repaired with 00 Vicryl interrupted suture. Subcutaneous tissue repaired with 000 Monocryl interrupted suture and Skin approximated with lorena. Sterile dressings applied followed by bulky dressing and splint. Patient awoken from anesthesia, extubated and taken to the recovery room in stable condition. All sponge, needle and instrument counts correct at the end of the case. Palpable dorsalis pedis pulse noted prior to dressing. Implants Arthrex distal fibula plate, 5 hole. 3.5 mm lag screw x1. 4.0 mm cannulated screw x1 Estimated Blood Loss 10 Tourniquet Time Total Tourniquet Time: 60 Urine Output 3,000 Drains No Packing No Pathology None sent Complications No immediate complications Condition Stable Disposition PACU [facility] Billing Surgery - Charge Forward: Surgery Billing ([id number]) Imaging Radiologist's impression: ITS Impressions Ankle X-Ray 03/14/25 18:52 IMPRESSION: Trimalleolar fracture/dislocation of the left ankle. Tibia/Fibula X-Ray 03/14/25 18:52 IMPRESSION: Trimalleolar fracture/dislocation of the left ankle. Chest X-Ray 03/16/25 05:51 Impression: Clear lungs. Cervical Spine CT 03/18/25 09:28 IMPRESSION: 1. 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 No acute osseous abnormality. Thoracic/Lumbar Spine CT 03/18/25 14:02 IMPRESSION: 1. Mild thoracic and lumbar spondylosis with minimal physiologic anterior wedging at T12 and L1 but no acute osseous abnormality. 2. Prominent airspace opacity bilateral lower lobes consistent with aspiration and/or pneumonia. Discharge Plan Discharge Attending physician on discharge: Rob Smith Consulting providers: Christa Hernandez; Licha Sahu; Shun Ramesh; Adina Hatfield Discharging Clinician: Rob Smith Anticipated Discharge Date/Time: 03/20/25 12:32 Patient Disposition: Hospital Swing Bed Activity: as tolerated and follow weight bearing status Diet: as tolerated and diabetic Discharge Instructions: SHUN RAMESH M.D. [facility] [address] [place] [address] POST OPERATIVE DISCHARGE INSTRUCTIONS FOOT/ANKLE SURGERY * Elevate the involved extremity on pillows. * Elevate leg, make sure that the foot is above the level of your heart * Carefully observe the exposed toes for evidence of swelling or discoloration. * If the dressing is uncomfortable or tight, call the Dr?s office. * Keep the dressing clean and dry. Cover cast to keep dry for shower. * If the pain medication does not provide adequate relief, please call Dr?s office. * Take other medication as prescribed. * Please call Dr?s office to confirm follow-up appointment for 1 week. * If you have any questions, please call the Dr?s office. * Diet as tolerated. * Activity:____X____Restrictions as follows: NO weight on operative leg; crutches or walker for ambulation, may use wheelchair, knee scooter * Do not drive for 24 hours, unless otherwise instructed. * Additional instructions: Patient Instructions: Antibiotic Form, Crutch Instructions (DC), Splint Care (DC) Patient Language: Burundian Stand Alone Forms: General Discharge Information Follow-up/Referrals: Shun Ramesh MD [Physician] - 04/14/25 1:45 pm PHYSICIAN NOT ON STAFF,NONSTAFF [Primary Care Provider] - 1 Week Discharge Medications: New hydrocodone-acetaminophen 5-325 mg Tablet 1 tablet PO Q4H PRN (Reason: Pain Rated 4-6) Qty: 30 0RF chlordiazepoxide HCl 25 mg capsule See Rx Instructions .ROUTE .COMPLEX Qty: 20 0RF Rx Instructions: 25 mg orally 3 times a day for 2 days followed by 25 mg twice a day for 2 days followed by 25 mg once a day for 2 days then stop enoxaparin [Lovenox] 40 mg/0.4 mL Syringe 40 mg subcut DAILY Qty: 14 0RF folic acid 1 mg Tablet 1 mg PO DAILY Qty: 30 0RF multivitamin with folic acid [Thera] 400 mcg Tablet 1 tablet PO QAM Qty: 30 0RF ipratropium-albuterol 0.5 mg-3 mg(2.5 mg base)/3 mL Solution For Nebulization 3 ml inhalation Q6HRT PRN (Reason: sob) Qty: 30 0RF polyethylene glycol 3350 [Miralax] 17 gram Powder In Packet 17 g PO QAM PRN (Reason: constipation) Qty: 14 0RF thiamine HCl (vitamin B1) [Vitamin B-1] 100 mg Tablet 100 mg PO QAM Qty: 30 0RF Mucinex DM 30-600 mg Tablet Extended Release 12 Hr 1 tab PO Q12HR Qty: 10 0RF sennosides-docusate sodium [Senokot-S] 8.6-50 mg Tablet 2 tab-cap PO BID PRN (Reason: constipation) Qty: 60 0RF metronidazole 500 mg Tablet 500 mg PO Q8HR Qty: 21 0RF cefdinir 300 mg capsule 300 mg PO Q12H Qty: 10 0RF Continued simvastatin 80 mg tablet 80 mg PO DAILY lisinopril 20 mg tablet 20 mg PO DAILY omeprazole 20 mg capsule,delayed release(DR/EC) 20 mg PO DAILY Patient Comments: takes before breakfast levocetirizine [24HR Allergy Relief] 5 mg tablet 5 mg PO DAILY fluticasone propionate 50 mcg/actuation spray,suspension 2 spray INTRANASAL DAILY Patient Comments: PATIENT TAKES IN AFTERNOON aspirin [Adult Aspirin Regimen] 81 mg tablet,delayed release (DR/EC) 81 mg PO DAILY pioglitazone 15 mg tablet 15 mg PO DAILY insulin lispro 100 unit/mL cartridge 1 sliding scale dose subcut USEASDIRECTD Patient Comments: TAKES WITH MEALS 1 UNIT FOR EVERY 3 UNITS OF CARBS, IF BLOOD SUGAR OVER 200 TAKES 1 UNIT FOR EVERY 10 POINTS ABOVE 200 BLOOD SUGAR. insulin glargine [Lantus U-100 Insulin] 100 unit/mL solution 54 unit SUBCUT BID famotidine 40 mg tablet 40 mg PO HS Date of admission: 03/19/25 09:45 Primary Care Provider: PHYSICIAN NOT ON STAFF,NONSTAFF Admitting Provider: Fidelia Terrell Attending physician on admission: Fidelia Terrell Condition: Stable
--- NOTE | 2025-03-20 13:24 | PCOTNOTE ---
Attempted to see pt for OT treatment. Pt declined need to participate nor had any questions/concerns due to upcoming d/c today to rehab setting.
[2025-03-20 14:00] VITALS: BP 131/65; PULSE 104; RESP 17; TEMP 36.1; O2SAT 99
== END 2025-03-20 15:32 | disposition swing bed (61) | DRG 492 ==
LOC: ANHED 22:59 → ANH3MEDSUR 23:15
PROVIDERS: Nurse Practitioner Family; Orthopaedic Surgery; Admitting Provider Internal Medicine; Emergency Provider Student in an Organized Health Care Education/Training Program; Visit Provider Internal Medicine
PROC: 0QSH04Z Reposition Left Tibia with Internal Fixation Device, Open Approach (ICD-10-PCS; principal; 2025-03-16 13:00)
DX: S82.852A Displaced trimalleolar fracture of left lower leg, initial encounter for closed fracture (principal); J18.9 Pneumonia, unspecified organism; E87.1 Hypo-osmolality and hyponatremia; F10.239 Alcohol dependence with withdrawal, unspecified; W01.0XXA Fall on same level from slipping, tripping and stumbling without subsequent striking against object, initial encounter; F10.229 Alcohol dependence with intoxication, unspecified; E10.21 Type 1 diabetes mellitus with diabetic nephropathy; E10.319 Type 1 diabetes mellitus with unspecified diabetic retinopathy without macular edema; E78.5 Hyperlipidemia, unspecified; I10 Essential (primary) hypertension; K21.9 Gastro-esophageal reflux disease without esophagitis; F17.210 Nicotine dependence, cigarettes, uncomplicated; E86.0 Dehydration; Z20.822 Contact with and (suspected) exposure to COVID-19; Z79.4 Long term (current) use of insulin
CPT/HCPCS: 36415; 71045; 72125; 72128; 72131; 73590; 73600; 73610; 80048; 80053; 81001; 82570; 82948; 83735; 84100; 84300; 84443; 85025; 85027; 85610; 85730; 86850; 86900; 86901; 87040; 87637; 92610; 94640; 96374; 96375; 97116; 97161; 97166; 97530; 97535; 99199; 99285; A9270; C1713; C1769; J0330; J0690; J0696; J1171; J1650; J1815; J2003; J2060; J2250; J2270; J2371; J2405; J2704; J3010; J3360; J7030; J7120

== ENCOUNTER 2025-03-20 16:08 | Inpatient (IN) | payer OTHER, SELFPAY ==
--- NOTE | ~2025-03-20 | CT_ITS ---
EXAMINATION: CTA chest PE protocol DATE: 03/21/2025 07:45 INDICATION: Syncope post surgery. Back pain. TECHNIQUE: Computed tomography (CT) pulmonary angiogram of the chest was performed with 100 mL Omnipa que-350 intravenous contrast. Additional 3D reconstructions utilizing coronal maximum intensity proje ction (MIP) were performed. Automated exposure control and iterative reconstruction technique were em ployed. The dose-length product was 783.62 mGy-cm. COMPARISON: Thoracic and lumbar spine CT dated 03/28/2025.e FINDINGS: No pulmonary embolism. Patchy groundglass opacities in the right lower lobe and small region of subtl e tree-in-bud opacities in the dependent left lower lobe consistent with and endobronchial spread of disease such as aspiration or pneumonia. This appears significantly improved when compared with thora cic spine CT from 2 days prior. No pulmonary edema or pleural effusion. Heart size is normal. Atheros clerotic coronary artery calcification. No pericardial effusion. Thoracic aorta is normal in caliber with no dissection. No pathologically enlarged thoracic lymphadenopathy. Small sliding-type hiatal he rnia. A few old healed bilateral rib fractures. 2.4 cm left adrenal nodule with low-attenuation on pr ior CT diagnostic of adenoma. Diffuse hepatic steatosis. IMPRESSION: 1. No pulmonary embolism. 2. Improving pneumonia in the bilateral lower lobes. 3. Small sliding-type hiatal hernia. Reviewed, dictated and finalized at location A.
--- OUTSIDE RECORDS SUMMARY | 2025-03-20 16:12 | XMS_ITS | Clinical Summary ---
Author Organization [facility] Address [address] [place] [id number] Care Team Providers Care Cloth Desizing Range Operator Chief Name Role Phone Unavailable Primary Care Provider [...]
[2025-03-20 17:00] VITALS: BP 119/71; PULSE 95; RESP 16; TEMP 36.4; O2SAT 97
[2025-03-20 17:54] VITALS: O2SAT 97
--- NOTE | 2025-03-20 18:00 | PC.NURSE ---
NOTED SCANT AMOUNT OF SEROUSANGUINOUS FLUID DRIPPING FROM POSTERIOR HEEL AREA OF CAST. NOTIFIED CHARGE NURSE WHO THEN NOTIFIED THE NURSE PRACTITIONER/HOSPITALIST. NO NEW ORDERS, CONTINUE TO MONITOR, PT HAD DECOMPRESSION OF BLISTERED AREAS PRIOR TO CAST APPLICATION TODAY. EXTREMITY ELEVATED, NO FURTHER BLEEDING NOTED.
[2025-03-20] MEDS: HYDROcodone/acetaminophen (*CRX) 5-325 MG TABLET 1 TAB PO (18:50)
[2025-03-20] MEDS: chlordiazePOXIDE (*CRX) 25 MG CAPSULE PO (20:00)
[2025-03-20] MEDS: CEFDINIR 300 MG CAPSULE PO (20:59)
[2025-03-20] MEDS: FAMOTIDINE 20 MG TABLET 40 MG PO (20:59)
[2025-03-20] MEDS: guaiFENesin 12 HR 600 MG TABCR 1200 MG PO (20:59)
[2025-03-20] MEDS: INSULIN GLARGINE (*BKC) 1,000 UNITS/10 ML VIAL 54 UNITS SUB-Q (21:00)
[2025-03-21] VITALS (10 sets, daily range): BP systolic 76–139; BP diastolic 46–68; PULSE 84–109; RESP 14–17; TEMP 36.1–36.5; O2SAT 98
[2025-03-21] MEDS: HYDROcodone/acetaminophen (*CRX) 5-325 MG TABLET 1 TAB PO ×4 (02:20→19:19)
--- NOTE | 2025-03-21 06:35 | PC.NURSE ---
Tomás Hernandez NP, notified of pt's low blood pressure and c/o dizziness and light headedness. New orders received and noted.
--- NOTE | 2025-03-21 06:40 | PC.NURSE ---
Patient called this nurse into as patient stated that he was feeling off. Went into room to assess patient and patient complained of being dizzy and light headed. Patient was slightly diaphoretic and slurred speech was noted. Patients blood glucose was checked at this time and level was 130. Patients vitals were checked at this time and left arm blood pressure was 82/39. Pulse was 95, SPO2 was 100% and respirations 18. This nurse decided to check the blood pressure on the right arm and was noted 79/46. After this reading this nurse did a manual BP and that reading was 80/50. The charge nurse was alerted of the readings at this time.
[2025-03-21] MEDS: SODIUM CHLORIDE 0.9% IV 500 ML IV CONT (06:45)
--- NOTE | 2025-03-21 06:45 | PC.NURSE ---
Rapid response called due to change in pt's condition
[2025-03-21 06:54] LABS: Hematocrit 35.9 % (40.0-54.0); Hemoglobin 12.3 g/dL (14.0-18.0); Mean Corpuscular HGB Conc 34.3 g/dL (32-36); Mean Corpuscular Hemoglobin 29.9 pg (27.0-31.0); Mean Corpuscular Volume 87.3 fL (78.0-102.0); Platelet Count Result 463 K/mm3 (150-420); Red Blood Count 4.11 M/mm3 (4.70-6.10); White Blood Count 13.5 K/mm3 (4.8-10.8)
--- NOTE | 2025-03-21 07:00 | ECG_ITS ---
Test Date: 2025-03-21 07:05:41 Measurements Intervals [place] Rate: 86 P: 7 WA: 145 QRS: 47 QRSD: 97 T: 28 QT: 366 QTc: 438 Interpretive Statements SINUS RHYTHM No previous ECG available for comparison Electronically Signed On 03-23-2025 15:46:12 CDT by Woody Patrick M.D.
[2025-03-21] MEDS: SODIUM CHLORIDE 0.9% IV 1,000 ML 125 ML IV CONT (07:13)
--- NOTE | 2025-03-21 07:18 | P.HP_ITS ---
H&P: HPI History of Present Illness Date/Time: 03/21/25 07:18 Chief Complaint: Rehab post repair of trimalleolar fracture of the left ankle Narrative: Patient is a 44-year-old male who was admitted to [facility] for rehab post surgical repair of his fractured trimalleolar fracture of the left ankle patient underwent surgery 03/16/2025 and currently is nonweightbearing postop. Patient reports past medical history of hypertension, type 1 diabetes, and ETOH abuse. patient had a new short-leg cast applied 03/20/2025 with fracture blisters decompression from ortho requested continue nonweightbearing status, pain control, and continued PT/OT. Patient with no events overnight after admission however the following morning patient had gotten up and had a BM upon returning to his recliner he had reported feeling dizzy with some left shoulder pain initially was called by RN due to patient's hypotensive state patient was 80's/40's and reported overall not feeling well and dizzy. I requested a stat CMP and CBC and to initiate a bolus of 500 mL of normal saline in the to continue 125. Upon arrival a rapid had been called with Dr. Wang ER physician at bedside assisting with the ra pid. Patient denied CP or SOB but did endorse left shoulder pain. A stat EKG was performed with no ST/ T changes, a stat troponin, and glucose at 130. Patient was assisted back to the bed and placed in Trendelenburg position with continued IV fluid infusions at which time patient's BP did recover and reported improvement to his dizziness and overall began feeling better. patient likely with syncopal episode likely vasovagal the post BM and ambulation back to recliner. that time order a CTA just to rule out any PE since patient is surgical postop. follow-up assessment patient denied any chest pain, shortness breath vomiting and no further dizziness with stable BP. CBC and CMP reviewed unremarkable and other vitals in desirable range. Review of Systems Review of Systems: All systems reviewed & are unremarkable except as noted in HPI and below PMFSH Past Medical History Medical History Macroalbuminuric diabetic nephropathy On lisinopril Continuous tobacco abuse Diabetic retinopathy Type 1 diabetes mellitus Since [id number] Allergic rhinitis Hyperlipidemia Essential hypertension GERD (gastroesophageal reflux disease) Surgical History Surgical History Status post open reduction with internal fixation of fracture Right thumb repair History of umbilical hernia repair X2 Family History Family History Other Lung cancer Other Brain cancer Other Mouth cancer Mother Healthy adult Father Healthy adult Social History Social History Social History: Patient is single and does not have any children. 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 He has smoked between 15-20 cigarettes a day since his early 20s. He drinks between 12-18 beers a day and has drink heavily for at least 10 years. He denies illicit substance use. Code status: Full code Surrogate decision maker: Tu (brother) Smoking packs per day: 1 Smoking cigarettes per day: 20.0 Years smoked: 20 Smoking pack-years: 20.00 Smoking status: Current every day smoker Tobacco type: cigarettes Second hand tobacco smoke exposure: No Alcohol intake: current Drinks per week: 80 Substance use: never Substance use type: does not use Do You Feel Safe in your Home?: Yes Lack of Transportation: YES Lack of Food: Never True Current Housing: I Have Housing Concerned About Future Housing: No Difficulty Paying Gas/Electric Bills: No Difficulty Paying for Meds: No Currently Unemployed: YES Education: Master's Degree or Higher Difficulty w/ Childcare or Family Care: No Spiritual care concerns: No Meds Home Medications and Allergies Home Medications ?Medication ?Instructions ?Recorded ?Confirmed ?Type aspirin 81 mg tablet,delayed 81 mg PO DAILY 03/14/25 03/20/25 History release (Adult Aspirin Regimen) fluticasone propionate 50 2 spray intranasal DAILY 03/14/25 03/20/25 History mcg/actuation nasal spray,suspension levocetirizine 5 mg tablet (24HR 5 mg PO DAILY 03/14/25 03/20/25 History Allergy Relief) lisinopril 20 mg tablet 20 mg PO DAILY 03/14/25 03/20/25 History omeprazole 20 mg capsule,delayed 20 mg PO DAILY 03/14/25 03/20/25 History release pioglitazone 15 mg tablet 15 mg PO DAILY 03/14/25 03/20/25 History simvastatin 80 mg tablet 80 mg PO DAILY 03/14/25 03/20/25 History famotidine 40 mg tablet 40 mg PO HS 03/15/25 03/20/25 History insulin glargine 100 unit/mL 54 unit subcut BID 03/15/25 03/20/25 History subcutaneous solution (Lantus U-100 Insulin) insulin lispro 100 unit/mL 1 sliding scale dose subcut 03/15/25 03/20/25 History subcutaneous cartridge USEASDIRECTD enoxaparin 40 mg/0.4 mL 40 mg (0.4 mL) subcut DAILY #14 mL 03/17/25 03/20/25 Rx subcutaneous syringe (Lovenox) hydrocodone 5 mg-acetaminophen 325 1 tablet PO Q4H PRN Pain Rated 4-6 03/17/25 03/20/25 Rx mg tablet #30 tabs polyethylene glycol 3350 17 gram 17 g PO QAM PRN constipation #14 ea 03/17/25 03/20/25 Rx oral powder packet (Miralax) sennosides 8.6 mg-docusate sodium 2 tab-cap (2 x 8.6-50 mg) PO BID 03/17/25 03/20/25 Rx 50 mg tablet (Senokot-S) PRN constipation #60 tabs cefdinir 300 mg capsule 300 mg PO Q12H #10 caps 03/20/25 03/20/25 Rx chlordiazepoxide HCl 25 mg capsule See Rx Instructions .Route 03/20/25 03/20/25 Rx .COMPLEX #20 caps dextromethorphan-guaifenesin 30 1 tab PO Q12HR #10 tabs 03/20/25 03/20/25 Rx mg-600 mg tablet extended hr (Mucinex DM) folic acid 1 mg tablet 1 mg PO DAILY #30 tabs 03/20/25 03/20/25 Rx ipratropium 0.5 mg-albuterol 3 mg 3 ml inhalation Q6HRT PRN sob #30 03/20/25 03/20/25 Rx (2.5 mg base)/3 mL nebulization mL soln metronidazole 500 mg tablet 500 mg PO Q8HR #21 tabs 03/20/25 03/20/25 Rx multivitamin with folic acid 400 1 tablet PO QAM #30 tabs 03/20/25 03/20/25 Rx mcg tablet (Thera) thiamine HCl (vitamin B1) 100 mg 100 mg PO QAM #30 tabs 03/20/25 03/20/25 Rx tablet (Vitamin B-1) Allergies Allergy/AdvReac Type Severity Reaction Status Date / Time amoxicillin Allergy Mild Unknown Verified 03/20/25 10:00 shellfish derived Allergy Mild Vomiting Verified 03/16/25 12:29 Vital Signs Vital Signs - 24 hr 03/20/25 17:00 03/20/25 17:00 03/20/25 17:54 Temperature 97.6 F Pulse Rate 95 Respiratory Rate 16 Blood Pressure 119/71 Pulse Oximetry 97 97 Oxygen Delivery Room Air Room Air Room Air 03/21/25 00:00 Temperature 97.7 F Pulse Rate 96 Respiratory Rate 16 Blood Pressure 139/68 Pulse Oximetry 98 Oxygen Delivery Room Air Exam Const: Other: Male patient with reports of dizziness with hypotension but improved with IV fluids HENMT: Ears: TM's normal bilaterally Face/Nose/Sinus: Normal nares present Mouth: Yes moist mucous membranes Eyes: General: appearance normal, both eyes and all related structures Sclera: sclerae normal Pupils: Equal, round and reactive pupils present Neck: Neck: supple and no JVD Resp: Effort & Inspection: normal respiratory effort Auscultation: clear to auscultation bilaterally Cardio: Rate: regular rate Rhythm: regular rhythm GI: GI Palp: Yes Soft to palpation Auscultation: normal bowel sounds Skin: General skin exam: no rashes or lesions noted Wounds: no wounds Other: Kunal facial complexion, no petechiae Neuro: Speech: normal speech Sensory Exam: normal sensation Extrem: General: normal to inspection Other: LLE in short-leg cast H&P: Results Labs Labs: Short CBC 03/21/25 Range/Units 06:49 WBC 13.5 H (4.8-10.8) K/mm3 Hgb 12.3 L (14.0-18.0) g/dL Hct 35.9 L (40.0-54.0) % Plt Count 463 H (150-420) K/mm3 Assessment and Plan Assessment and plan (1) Trimalleolar fracture of left ankle: Qualifiers: Encounter type: initial encounter Fracture type: closed Qualified Code(s): S82.852A - Displaced trimalleolar fracture of left lower leg, initial encounter for closed fracture Code(s): S82.852A - Displaced trimalleolar fracture of left lower leg, initial encounter for closed fracture Status: Acute Assessment and Plan: Patient has had a trimalleolar fracture of the left ankle. Surgery ORIF 03/16/2025 LLE short-leg cast * keep extremity elevated. * Non-weight bearing * Lovenox for DVT prophylaxis * pain management * PT/OT swing bed * follow-up with orthopedics in 3 weeks * keep cast clean and dry (2) Syncope: Code(s): R55 - Syncope and collapse Status: Acute Assessment and Plan: patient with syncopal episode 03/21/2025 post BM BP 80's/40's rapid response call ER physician at bedside to assist overall improvement with IV fluids in Trendelenburg position likely appears to be vasovagal event * ordered 500 bolus NS will continue with 125 ML/hr * CBC/ CMP unremarkable * EKG sinus rhythm [address]/T changes * glucose 130 * Troponin negative * CTA no PE/or dissection * hold his lisinopril until BP tolerates (3) ETOH abuse: Code(s): F10.10 - Alcohol abuse, uncomplicated Status: Acute Assessment and Plan: patient has history alcohol abuse * Thiamine, folic acid, and multi-vitamin * PPI daily * librium taper * Monitor and replenish electrolytes as needed (4) Essential hypertension: Code(s): I10 - Essential (primary) hypertension Status: Acute Assessment and Plan: * holding lisinopril due to episode of hypotension will resume once BP tolerates (5) Type 1 diabetes mellitus: Qualifiers: Diabetes mellitus complication detail: with diabetic microalbuminuria Diabetes mellitus complication status: with kidney complications Qualified Code(s): E10.29 - Type 1 diabetes mellitus with other diabetic kidney complication; R80.9 - Proteinuria, unspecified Code(s): E10.9 - Type 1 diabetes mellitus without complications Status: Acute Assessment and Plan: patient is a type 1 diabetic * ACCU check ACHS * resume patient's long insulin * sliding scale insulin * diabetic diet * hypoglycemic protocol (6) Pneumonia: Code(s): J18.9 - Pneumonia, unspecified organism Status: Acute Assessment and Plan: * continued patient's cefdinir and Flagyl * incentive spirometer while awake * supplemental oxygen p.r.n. on room air (7) Continuous tobacco abuse: Code(s): Z72.0 - Tobacco use Status: Acute Assessment and Plan: * nicotine patch p.r.n. * remove at night * encouraged smoking cessation Plan Code status: Full code per patient DVT prophylaxis: Lovenox Stress ulcer prophylaxis: Protonix 40 daily PT/OT notes: Swing bed Disposition: Patient admitted to [facility] swing bed for continued PT / OT postop ankle fracture repair is currently nonweightbearing status per Ortho. Areas some concerns with patient returning home since he is nonweightbearing and stairs at home. Care coordination consulted for further discharge planning needs. Quality VTE Prophylaxis VTE prophylaxis: pharmacologic ordered -Patient's previous records reviewed on admission -ER notes reviewed in detail on admission -discussed all findings and current treatment plan with patient/Family/POA -Consultations reviewed for recommendations -Patient's disposition for safe discharge discussed with shelter case manager Dictation performed by [employer] direct speech recognition software, therefore brokerage clerk variants and typographical errors may occur. Hospitalist MIPS Advance Care Plan I have confirmed that the patient's Advanced Care Plan is present, code status is documented, or surrogate decision maker is listed in patient medical record.: Yes Medication Reconciliation I have utilized all available resources to obtain, update and review the patients current medications (includes all prescriptions, OTC, herbals, cannabis, and nutritional supplements).: Yes The patient is not eligible for med reconciliation; the patient is in a emergent medical situation where delaying treatment would jeopardize the patients health.: No
[2025-03-21 08:50] LABS: Alanine Aminotransferase 28 U/L (6-50); Albumin Level 3.7 g/dL (3.5-5.1); Alkaline Phosphatase 86 U/L (38-126); Anion Gap 12 mmol/L (4-12); Aspartate Amino Transferase 27 U/L (17-59); Bilirubin,Total 0.5 mg/dL (0.2-1.3); Blood Urea Nitrogen 9 mg/dL (9-20); Calcium 8.9 mg/dL (8.4-10.2); Carbon Dioxide 21 mmol/L (22-30); Chloride 99 mmol/L (98-107); Estimated CRCL calculation 129 ml/min; Estimated Glomerular Filt Rate > 60; Glucose 145 mg/dL (65-110); Osmolality Calculated 275 mOsm/kg (285-295); Potassium 3.7 mmol/L (3.4-5.0); Sodium 132 mmol/L (137-145); Total Protein 5.8 g/dL (6.3-8.2)
[2025-03-21 09:01] LABS: Troponin I < 0.012 ng/mL (0.000-0.034)
[2025-03-21] MEDS: SIMVASTATIN 10 MG TABLET 80 MG PO (09:26)
[2025-03-21] MEDS: PIOGLITAZONE HCL 15 MG TAB PO (09:26)
[2025-03-21] MEDS: PANTOPRAZOLE 40 MG TABLET PO (09:26)
[2025-03-21] MEDS: guaiFENesin 12 HR 600 MG TABCR 1200 MG PO (09:26)
[2025-03-21] MEDS: THIAMINE HCL 100 MG TABLET PO (09:26)
[2025-03-21] MEDS: MULTIVITAMINS THERAPEUTIC TAB (*BKC) 1 TABLET PO (09:26)
[2025-03-21] MEDS: CEFDINIR 300 MG CAPSULE PO ×2 (09:26→21:17)
[2025-03-21] MEDS: FLUTICASONE PROPIONATE 0.05% NA SPR 16 GM BTL (*BKC) 2 SPRAY NASAL (09:27)
[2025-03-21] MEDS: ASPIRIN 81 MG ENTERIC TABLET PO (09:27)
[2025-03-21] MEDS: FOLIC ACID 1 MG TABLET PO (09:27)
[2025-03-21] MEDS: INSULIN GLARGINE (*BKC) 1,000 UNITS/10 ML VIAL 54 UNITS SUB-Q ×2 (09:38→21:18)
[2025-03-21] MEDS: LOPERAMIDE HCL 2 MG CAPSULE 4 MG PO (12:23)
[2025-03-21] MEDS: INSULIN HUMAN LISPRO (*BKC) 1,000 UNITS/10 ML VIAL 1 UNITS SUB-Q ×2 (13:21→17:55)
[2025-03-21 15:45] LABS: Toxigenic C. Diff NEGATIVE (NEGATIVE)
[2025-03-21] MEDS: LOPERAMIDE HCL 2 MG CAPSULE PO ×2 (17:02→21:17)
[2025-03-21] MEDS: FAMOTIDINE 20 MG TABLET 40 MG PO (21:17)
[2025-03-22] VITALS: BP 134/70; PULSE 100; RESP 17; TEMP 36.1; O2SAT 99
[2025-03-22] MEDS: HYDROcodone/acetaminophen (*CRX) 5-325 MG TABLET 1 TAB PO ×5 (03:17→21:05)
[2025-03-22] MEDS: LOPERAMIDE HCL 2 MG CAPSULE PO (06:08)
[2025-03-22] MEDS: INSULIN HUMAN LISPRO (*BKC) 1,000 UNITS/10 ML VIAL 1 UNITS SUB-Q ×3 (07:44→17:48)
[2025-03-22 08:00] VITALS: BP 122/70; PULSE 105; RESP 16; TEMP 36.1; O2SAT 97
[2025-03-22] MEDS: INSULIN GLARGINE (*BKC) 1,000 UNITS/10 ML VIAL 54 UNITS SUB-Q ×2 (08:43→21:06)
[2025-03-22] MEDS: MULTIVITAMINS THERAPEUTIC TAB (*BKC) 1 TABLET PO (08:45)
[2025-03-22] MEDS: CEFDINIR 300 MG CAPSULE PO ×2 (08:45→21:04)
[2025-03-22] MEDS: PANTOPRAZOLE 40 MG TABLET PO (08:45)
[2025-03-22] MEDS: FLUTICASONE PROPIONATE 0.05% NA SPR 16 GM BTL (*BKC) 2 SPRAY NASAL (08:45)
[2025-03-22] MEDS: PIOGLITAZONE HCL 15 MG TAB PO (08:45)
[2025-03-22] MEDS: ASPIRIN 81 MG ENTERIC TABLET PO (08:45)
[2025-03-22] MEDS: FOLIC ACID 1 MG TABLET PO (08:45)
[2025-03-22] MEDS: SIMVASTATIN 10 MG TABLET 80 MG PO (08:45)
[2025-03-22] MEDS: SACCHAROMYCES BOULARDII 250 MG CAPSULE PO ×3 (08:45→16:59)
[2025-03-22] MEDS: THIAMINE HCL 100 MG TABLET PO (08:45)
[2025-03-22 16:00] VITALS: BP 141/67; PULSE 97; RESP 18; TEMP 36.3; O2SAT 97
[2025-03-22 20:00] VITALS: PULSE 97; RESP 18; O2SAT 97
[2025-03-22] MEDS: FAMOTIDINE 20 MG TABLET 40 MG PO (21:04)
[2025-03-23] VITALS: BP 158/77; PULSE 105; RESP 17; TEMP 36.1; O2SAT 98
[2025-03-23] MEDS: HYDROcodone/acetaminophen (*CRX) 5-325 MG TABLET 1 TAB PO ×6 (01:11→23:18)
[2025-03-23 08:00] VITALS: BP 149/61; PULSE 99; RESP 16; TEMP 35.7; O2SAT 97
[2025-03-23] MEDS: INSULIN HUMAN LISPRO (*BKC) 1,000 UNITS/10 ML VIAL 1 UNITS SUB-Q ×4 (08:44→17:33)
[2025-03-23] MEDS: INSULIN GLARGINE (*BKC) 1,000 UNITS/10 ML VIAL 54 UNITS SUB-Q ×2 (08:46→21:11)
[2025-03-23] MEDS: PIOGLITAZONE HCL 15 MG TAB PO (08:49)
[2025-03-23] MEDS: SIMVASTATIN 10 MG TABLET 80 MG PO (08:50)
[2025-03-23] MEDS: ASPIRIN 81 MG ENTERIC TABLET PO (08:51)
[2025-03-23] MEDS: PANTOPRAZOLE 40 MG TABLET PO (08:52)
[2025-03-23] MEDS: SACCHAROMYCES BOULARDII 250 MG CAPSULE PO ×3 (08:52→17:33)
[2025-03-23] MEDS: CEFDINIR 300 MG CAPSULE PO ×2 (08:52→21:08)
[2025-03-23] MEDS: MULTIVITAMINS THERAPEUTIC TAB (*BKC) 1 TABLET PO (08:53)
[2025-03-23] MEDS: THIAMINE HCL 100 MG TABLET PO (08:54)
[2025-03-23] MEDS: FOLIC ACID 1 MG TABLET PO (08:54)
[2025-03-23] MEDS: FLUTICASONE PROPIONATE 0.05% NA SPR 16 GM BTL (*BKC) 2 SPRAY NASAL (08:55)
--- NOTE | 2025-03-23 09:53 | PM.EVENT ---
Event Note Event Note Event Note: Patient has had a trimalleolar fracture of the left ankle. Surgery ORIF 03/16/2025 LLE short-leg cast per patient's orthopedic surgeon patient is to remain nonweightbearing and due to this limitation patient would benefit from the use of a wheeled walker to assist in his ambulation and performing his ADLs at home.
--- NOTE | 2025-03-23 09:54 | PC.NURSE ---
IV site discontinued per patient request and HEAT AND FROST INSULATOR HELPER directive. Patient tolerated well.
[2025-03-23 16:00] VITALS: BP 127/73; PULSE 84; RESP 16; TEMP 35.7; O2SAT 100
[2025-03-23 20:00] VITALS: PULSE 84; RESP 16; O2SAT 100
[2025-03-23] MEDS: FAMOTIDINE 20 MG TABLET 40 MG PO (21:08)
[2025-03-24] VITALS: BP 143/68; PULSE 93; RESP 17; TEMP 36.1; O2SAT 98
[2025-03-24] MEDS: HYDROcodone/acetaminophen (*CRX) 5-325 MG TABLET 1 TAB PO ×3 (03:48→12:56)
[2025-03-24 07:53] VITALS: BP 124/67; PULSE 90; RESP 16; TEMP 36; O2SAT 99
[2025-03-24] MEDS: INSULIN HUMAN LISPRO (*BKC) 1,000 UNITS/10 ML VIAL 1 UNITS SUB-Q ×3 (08:29→12:31)
--- NOTE | 2025-03-24 08:29 | P.DS_ITS ---
DS: Admitting Diagnosis Discharge Date 03/24/2025 Admitting Diagnosis Rehab post repair of trimalleolar fracture of the left ankle DS: Discharge Diagnosis Discharge Diagnosis (1) Trimalleolar fracture of left ankle: Qualifiers: Encounter type: initial encounter Fracture type: closed Qualified Co de(s): S82.852A - Displaced trimalleolar fracture of left lower leg, initial encounter for closed fracture Code(s): S82.852A - Displaced trimalleolar fracture of left lower leg, initial encounter for closed fracture Status: Acute (2) Syncope: Code(s): R55 - Syncope and collapse Status: Acute (3) ETOH abuse: Code(s): F10.10 - Alcohol abuse, uncomplicated Status: Acute (4) Essential hypertension: Code(s): I10 - Essential (primary) hypertension Status: Acute (5) Type 1 diabetes mellitus: Qualifiers: Diabetes mellitus complication status: with kidney complications Diabetes mellitus complication detail: with diabetic microalbuminuria Qualified Code(s): E10.29 - Type 1 diabetes mellitus with other diabetic kidney complication; R80.9 - Proteinuria, unspecified Code(s): E10.9 - Type 1 diabetes mellitus without complications Status: Acute (6) Pneumonia: Code(s): J18.9 - Pneumonia, unspecified organism Status: Acute (7) Continuous tobacco abuse: Code(s): Z72.0 - Tobacco use Status: Acute DS: Summary Hospital Course Reason for hospitalization: Rehab post repair of trimalleolar fracture of the left ankle Hospital Course: Admission Patient is a 44-year-old male who was admitted to [facility] for rehab post surgical repair of his fractured trimalleolar fracture of the left ankle patient underwent surgery 03/16/2025 and currently is nonweightbearing postop. Patient reports past medical history of hypertension, type 1 diabetes, and ETOH abuse. patient had a new short-leg cast applied 03/20/2025 with fracture blisters decompression from ortho requested continue nonweightbearing status, pain control, and continued PT/OT. Hospital course Patient with no events overnight after admission however the following morning patient had gotten up and had a BM upon returning to his recliner he had reported feeling dizzy with some left shoulder pain initially was called by RN due to patient's hypotensive state patient was 80's/40's and reported overall not feeling well and dizzy. I requested a stat CMP and CBC and to initiate a bolus of 500 mL of normal saline in the to continue 125. Upon arrival a rapid had been called with Dr. Wang ER physician at bedside assisting with the rapid. Patient denied CP or SOB but did endorse left shoulder pain. A stat EKG was performed with no ST/ T changes, a stat troponin, and glucose at 130. Patient was assisted back to the bed and placed in Trendelenburg position with continued IV fluid infusions at which time patient's BP did recover and reported improvement to his dizziness and overall began feeling better. patient likely with syncopal episode likely vasovagal the post BM and ambulation back to recliner. that time order a CTA just to rule out any PE since patient is surgical postop. follow-up assessment patient denied any chest pain, shortness breath vomiting and no further dizziness with stable BP. CBC and CMP reviewed unremarkable and other vitals in desirable range. Patient with no further syncopal episodes and BP remained stable. Patient progressed and worked with PT/OT focusing on ambulating up stairs. I did request a wheeled walker since patient is to remain non-weight bearing until follow-up appointment with Dr. Ramesh to assist him on ambulation. Patient seen and assessed day of discharge in no acute distress with no new complaints was performing ambulation and transfer on own. Patient was discharged to home encouraged continued ETOH cessation. Status at Discharge Functional status at discharge: uses cane/walker Overall status at discharge: patient is progressing back to baseline Time Spent with Patient Time attestation: Total time spent providing and/or coordinating discharge services: Time spent: Greater than 30 minutes Exam Const: Other: Male patient with reports of dizziness with hypotension but improved with IV fluids HENMT: Ears: TM's normal bilaterally Face/Nose/Sinus: Normal nares present Mouth: Yes moist mucous membranes Eyes: General: appearance normal, both eyes and all related structures Sclera: sclerae normal Pupils: Equal, round and reactive pupils present Neck: Neck: supple and no JVD Resp: Effort & Inspection: normal respiratory effort Auscultation: clear to auscultation bilaterally Cardio: Rate: regular rate Rhythm: regular rhythm GI: Auscultation: normal bowel sounds Skin: General skin exam: no rashes or lesions noted Wounds: no wounds Other: Kunal facial complexion, no petechiae Neuro: Cranial nerves: Yes Equal, round and reactive pupils present Speech: normal speech Sensory Exam: normal sensation Extrem: General: normal to inspection Other: LLE in short-leg cast DS: Data Data Completed and Pending Labs on day of discharge: Labs from last 24 hours 03/24/25 03/23/25 03/23/25 07:33 21:06 16:14 POC Capillary Glucose 187 H 225 H 179 H 03/23/25 11:37 POC Capillary Glucose 140 H Discharge Plan Discharge Attending physician on discharge: Casey Yeh Consulting providers: Christa Hernandez Discharging Clinician: Christa Hernandez Anticipated Discharge Date/Time: 03/24/25 08:21 Patient Disposition: Home Activity: other - see discharge instructions Diet: heart healthy and diabetic Discharge Instructions: SHUN RAMESH M.D. [facility] [id number] [place] [id number] POST OPERATIVE DISCHARGE INSTRUCTIONS FOOT/ANKLE SURGERY * Elevate the involved extremity on pillows. * Elevate leg, make sure that the foot is above the level of your heart * Carefully observe the exposed toes for evidence of swelling or discoloration. * If the dressing is uncomfortable or tight, call the Dr?s office. * Keep the dressing clean and dry. Cover cast to keep dry for shower. * If the pain medication does not provide adequate relief, please call Dr?s office. * Take other medication as prescribed. * Please call Dr?s office to confirm follow-up appointment for 1 week. * If you have any questions, please call the Dr?s office. * Diet as tolerated. * Activity:____X____Restrictions as follows: NO weight on operative leg; crutches or walker for ambulation, may use wheelchair, knee scooter * Do not drive for 24 hours, unless otherwise instructed. * Additional instructions: Patient Instructions: Antibiotic Form Patient Language: Yoruba Stand Alone Forms: General Discharge Information Follow-up/Referrals: Cristhian Swartz [Other] - 3 Weeks Shun Ramesh MD [Physician] - Keep Reg. Scheduled Appt. Discharge Medications: Continued hydrocodone-acetaminophen 5-325 mg Tablet 1 tablet PO Q4H PRN (Reason: Pain Rated 4-6) Qty: 20 0RF thiamine HCl (vitamin B1) [Vitamin B-1] 100 mg Tablet 100 mg PO QAM Qty: 30 0RF metronidazole 500 mg Tablet 500 mg PO Q8HR Qty: 10 0RF folic acid 1 mg Tablet 1 mg PO DAILY Qty: 30 0RF cefdinir 300 mg capsule 300 mg PO Q12H Qty: 2 0RF multivitamin with folic acid [Thera] 400 mcg Tablet 1 tablet PO QAM Qty: 30 0RF simvastatin 80 mg tablet 80 mg PO DAILY lisinopril 20 mg tablet 20 mg PO DAILY omeprazole 20 mg capsule,delayed release(DR/EC) 20 mg PO DAILY Patient Comments: takes before breakfast levocetirizine [24HR Allergy Relief] 5 mg tablet 5 mg PO DAILY fluticasone propionate 50 mcg/actuation spray,suspension 2 spray INTRANASAL DAILY Patient Comments: PATIENT TAKES IN AFTERNOON aspirin [Adult Aspirin Regimen] 81 mg tablet,delayed release (DR/EC) 81 mg PO DAILY pioglitazone 15 mg tablet 15 mg PO DAILY insulin lispro 100 unit/mL cartridge 1 sliding scale dose subcut USEASDIRECTD Patient Comments: TAKES WITH MEALS 1 UNIT FOR EVERY 3 UNITS OF CARBS, IF BLOOD SUGAR OVER 200 TAKES 1 UNIT FOR EVERY 10 POINTS ABOVE 200 BLOOD SUGAR. insulin glargine [Lantus U-100 Insulin] 100 unit/mL solution 54 unit SUBCUT BID famotidine 40 mg tablet 40 mg PO HS polyethylene glycol 3350 [Miralax] 17 gram Powder In Packet 17 g PO QAM PRN (Reason: constipation) Qty: 14 0RF Mucinex DM 30-600 mg Tablet Extended Release 12 Hr 1 tab PO Q12HR Qty: 10 0RF Discontinued sennosides-docusate sodium [Senokot-S] 8.6-50 mg Tablet 2 tab-cap PO BID PRN (Reason: constipation) Qty: 60 0RF enoxaparin [Lovenox] 40 mg/0.4 mL Syringe 40 mg subcut DAILY Qty: 14 0RF ipratropium-albuterol 0.5 mg-3 mg(2.5 mg base)/3 mL Solution For Nebulization 3 ml inhalation Q6HRT PRN (Reason: sob) Qty: 30 0RF chlordiazepoxide HCl 25 mg capsule See Rx Instructions .ROUTE .COMPLEX Qty: 20 0RF Rx Instructions: 25 mg orally 3 times a day for 2 days followed by 25 mg twice a day for 2 days followed by 25 mg once a day for 2 days then stop Date of admission: 03/20/25 16:08 Primary Care Provider: Cristhian Swartz Admitting Provider: Casey Yeh Attending physician on admission: Casey Yeh Condition: Stable Quality VTE Prophylaxis VTE prophylaxis: pharmacologic ordered -Patient's previous records reviewed on admission -ER notes reviewed in detail on admission -discussed all findings and current treatment plan with patient/Family/POA -Consultations reviewed for recommendations -Patient's disposition for safe discharge discussed with adult protective caseworker Dictation performed by [employer] direct speech recognition software, therefore clinical lab scientist variants and typographical errors may occur. Hospitalist MIPS Heart Failure (Exclusion) Patient has history of Heart Transplant or Left Ventricular Assistive Device?: No IF YES, STOP HERE Heart Failure (Qualifier) Patient has current or prior documentation of LVEF less than or equal to 40%, or mod/servere depressed LVSF?: No IF NO, STOP HERE
[2025-03-24] MEDS: INSULIN GLARGINE (*BKC) 1,000 UNITS/10 ML VIAL 54 UNITS SUB-Q (08:31)
[2025-03-24] MEDS: CEFDINIR 300 MG CAPSULE PO (08:34)
[2025-03-24] MEDS: PIOGLITAZONE HCL 15 MG TAB PO (08:34)
[2025-03-24] MEDS: SIMVASTATIN 10 MG TABLET 80 MG PO (08:34)
[2025-03-24] MEDS: MULTIVITAMINS THERAPEUTIC TAB (*BKC) 1 TABLET PO (08:35)
[2025-03-24] MEDS: ASPIRIN 81 MG ENTERIC TABLET PO (08:35)
[2025-03-24] MEDS: FOLIC ACID 1 MG TABLET PO (08:36)
[2025-03-24] MEDS: SACCHAROMYCES BOULARDII 250 MG CAPSULE PO ×2 (08:36→12:33)
[2025-03-24] MEDS: PANTOPRAZOLE 40 MG TABLET PO (08:36)
[2025-03-24] MEDS: THIAMINE HCL 100 MG TABLET PO (08:37)
[2025-03-24] MEDS: FLUTICASONE PROPIONATE 0.05% NA SPR 16 GM BTL (*BKC) 2 SPRAY NASAL (08:37)
--- NOTE | 2025-03-24 13:15 | PC.NURSE ---
Discharge instructions given to patient and patient voiced understanding. Antibiotic due at 1400 administered early per patient request prior to discharge. All personal items sent home with patient. Patient left unit in w/c, accompanied by patient's parents and nurse. Patient left hospital grounds in privately owned vehicle. Patient required assistance into vehicle due to ankle fracture and NWB status on Left side. Patient okayed by therapy to discharge.
--- NOTE | 2025-03-30 13:55 | PC.NURSE ---
Attempt d/c callback x1, went straight to , no identifying info, no msg left.
== END 2025-03-24 13:15 | disposition home or self-care (01) | DRG 559 ==
PROVIDERS: Admitting Provider Internal Medicine; Visit Provider Nurse Practitioner Family
DX: S82.852D Displaced trimalleolar fracture of left lower leg, subsequent encounter for closed fracture with routine healing (principal); J18.9 Pneumonia, unspecified organism; R55 Syncope and collapse; M25.512 Pain in left shoulder; I95.9 Hypotension, unspecified; I10 Essential (primary) hypertension; E10.21 Type 1 diabetes mellitus with diabetic nephropathy; E10.319 Type 1 diabetes mellitus with unspecified diabetic retinopathy without macular edema; E78.5 Hyperlipidemia, unspecified; F10.10 Alcohol abuse, uncomplicated; F17.210 Nicotine dependence, cigarettes, uncomplicated; K21.9 Gastro-esophageal reflux disease without esophagitis; Z79.4 Long term (current) use of insulin; Z79.82 Long term (current) use of aspirin
CPT/HCPCS: 36415; 71275; 80053; 82948; 84484; 85027; 87493; 93005; 97110; 97161; 97165; 97530; A9270; J1650; J1815; J7030; J7040; Q9967